=== PATIENT | male | born 1945 | race Caucasian/White ===

== ENCOUNTER 2017-03-13 14:04 | Inpatient (IN) ==
[~2017-03-13 14:04] MED LIST: *HR* Etomidate 20 MG/10 ML AMPUL IVP ONE; *HR* LORazepam 2 MG/ML VIAL IVP ONE; *HR* Midazolam HCl 2 MG/2 ML VIAL IV ONE; *HR* Midazolam HCl 5 MG/5 ML VIAL IVP ONE
--- NOTE | 2017-03-13 17:01 | Pulmonology History & Physical ---
<Sharan Navarro W - Last Filed: 03/13/17 18:52> Date of Encounter: 03/13/17 History of Present Illness HPI: Mr. Child is a 71 year old male Medications and Allergies Fluticasone Propionate Nasal [Flonase] 150 mcg NS DAILY 04/06/15 [History] Furosemide [Lasix] 20 mg PO QAM 04/06/15 [History] Ropinirole HCl [Requip] 5 mg PO BID 04/06/15 [History] Sertraline [Zoloft] 150 mg PO DAILY 10/07/15 [History] Gabapentin [Neurontin] 300 mg PO TID 04/05/16 [History] Lisinopril/Hydrochlorothiazide [Zestoretic 10-12.5 mg Tablet] 1 each PO DAILY [History] Montelukast [Singulair] 10 mg PO DAILY 03/13/17 [History] Mv-Mn/FA/Vit K/Lycop/Lut/Coq10 [Daily Multivitamin Capsule] 1 each PO DAILY [History] Naproxen Sodium [Naproxen Sodium Cr] 500 mg PO BID 03/13/17 [History] Potassium Chloride [K-Tab ER] 20 meq PO DAILY 03/13/17 [History] Trazodone HCl 100 mg PO HS PRN 03/13/17 [History] 3 Allergy/AdvReac Type Severity Reaction Status Date / Time hydrocodone [From Vicodin] AdvReac Gastrointestinal Verified 03/13/17 12:08 Upset Iodinated Contrast- Oral and AdvReac Vomiting Verified 03/13/17 12:08 IV Dye [Iodinated Contrast Media - IV Dye] All Systems: A 10-system review of systems was performed and is negative for pertinent findings except as documented above in the HPI. Physical Examination Vital Signs: Vital Signs, Last 4 Hours Pulse Resp Pulse Ox 03/13/17 16:54 96 98 03/13/17 16:51 30 99 Results - Laboratory Findings ABG ABG pH 7.16 pH Units (7.32-7.45) L* 03/13/17 16:43 ABG pCO2 54 mmHg (35-45) H 03/13/17 16:43 ABG pO2 101 mmHg (85-104) 03/13/17 16:43 ABG O2 Saturation 96 % (95-98) 03/13/17 16:43 Abnormal lab findings: Abnormal lab results ABG pH 7.16 pH Units (7.32-7.45) L* 03/13/17 16:43 ABG pCO2 54 mmHg (35-45) H 03/13/17 16:43 ABG HCO3 19.2 mEQ/L (21-27) L 03/13/17 16:43 ABG Base Excess -9.8 mEq/L (-2.0 to 3.0) L 03/13/17 16:43 Urine Clarity Cloudy (Clear) A 03/13/17 16:00 Urine Bilirubin Small (Negative) H 03/13/17 16:00 Ur Leukocyte Esterase Small (Negative) H 03/13/17 16:00 Ur Squamous Epith Cells Many per lpf (None-Few) H 03/13/17 16:00 Ur Culture Indicated? YES (NO) A 03/13/17 16:00 - Attending Attestation I examined this patient and my medical decision-making was reviewed with the Resident Physician. I agree with the documented findings, disposition and treatment plan as described except to the extent set forth below. We independently had [id number] contact with the patient I spent 50min of Critical Care time with this patient. It involved decision making of high complexity to assess, manipulate, and support vital organ system failure and/or to prevent further life threatening deterioration of the patient' s condition. The time involved in the performance of separately reportable procedures was not counted toward critical care time. Patient seen and examined at bedside Labs, radiology, chart personally reviewed. Management was reviewed during multidisciplinary critical care rounds. 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 Currently he is tolerating noninvasive ventilation repeat ABG pending high risk of decompensation requiring endotracheal intubation and mechanical ventilation. Cards: Patient has been borderline hypotensive with evidence of elevated lactate and acute kidney injury overall physiology appears severe sepsis and bordering on shock with multiple organ system dysfunction - patient was actually requiring vasopressor in-transit from outside hospital although that has been weaned off since he is here we will continue to gentle fluid boluses as needed and will have a low threshold to restart vasopressor given evidence of cardiogenic edema as evidenced by BNP his ECG is without evidence of STEMI troponin is negative at this time may need formal echocardiogram based upon clinical course FEN-GI: Nothing by mouth for now Renal: Acute kidney injury which is likely multifactorial acute including prerenal azotemia from hypovolemia and sepsis along with use of DANNI inhibitor and nonsteroidal anti-inflammatory medication. We have given him fluid resuscitation. Currently he is oliguric we will continue to monitor urine output Dior catheter has been placed for this purpose trend renal function twice daily replace electrolytes potassium as of right now not significantly elevated we will monitor this closely may need renal consult based upon clinical course I have have also ordered a renal ultrasound. ID: Severe sepsis likely secondary to committee acquired pneumonia he is being covered broadly for this purposes cultures have been obtained strep pneumo and legionella urine antigens have been sent repeat lactate every 6 hours. He is also receiving adequate volume resuscitation Heme/Onc: DVT prophylaxis given H&H stable platelets stable continue to monitor her evidence of coagulopathy Endo: Glucose Monitored Integ/MSK: Skin Care per routine ICU Nursing Protocol to prevent ulcers. Lines: A right central venous catheter was inserted in the femoral vein under ultrasound guidance Dispo: Remains critically ill CODE: Full Code. and son were updated at bedside <Red Valles - Last Filed: 03/13/17 19:05> Date of Encounter: 03/13/17 Time of Encounter: 17:01 Assessment and Plan (1) Acute respiratory failure with hypoxia Current visit: Yes Status: Acute Patient is currently on BiPAP and his oxygen saturation is at 100% with an FiO2 of 100. He is currently tachypnic, and his last pH was 7.16. This has worsened from the previous one done in the emergency department at [facility] where was 7.25. His PCO2 is now 54, and it was 45 at [facility]. This has worsened as well. I will repeat an arterial blood gas in 30 minutes. If this is not improved, we will consider intubation. (2) Pneumonia Current visit: No Status: Acute (3) Sepsis associated hypotension Current visit: Yes Status: Acute Patient's mean arterial pressure is currently at 75. We have obtained written consent to perform a central line if necessary. At this point, we will continue monitoring. We have placed a central line in the right femoral vein. Levophed is on standby in case his hematocrit drops below 65. (4) Acute kidney injury Current visit: Yes Status: Acute Continue monitoring her renal function. We will give him 500 mL boluses of normal saline and monitor for fluid overload. (5) DVT prophylaxis Current visit: Yes Status: Acute 5000 units of heparin subcutaneous every 8 hours. I will monitor his PT, INR, APTT History of Present Illness Chief complaint: Acute hypoxic respiratory failure, sepsis secondary to pneumonia HPI: Mr. Child is a 71 year old male who presented to the [facility] emergency department today with a 3 day history of a productive cough, and shortness of breath. There, he was tachycardic, hypotensive with a blood pressure of 83/46, and his O2 sat was 68% on arrival. His initial pH of his arterial blood gas was 7.26, and initial PO2 was 41. His chest x-ray revealed patchy bilateral bibasilar airspace abnormalities that may reflect edema or an atypical infection. His initial lab values revealed a creatinine of 2.21 and a BUN of 61. He received 1 L bolus of normal saline while he was there in the emergency department, 40 mg of furosemide, and DuoNeb. He also received azithromycin and Rocephin while he was there. We were consulted in the intensive care unit due to his hypoxia as well as sepsis secondary to pneumonia. Patient states that he is currently really short of breath, and has and has had drainage in the back of his throat for the past week. His states that he had of severe lung infection a few years ago and had pneumonia last year. She states that he was never a smoker. Past Med Surg Social Fam HX - Past Medical History Medical history: no medical history Psychiatric history: no psych history - Past Surgical History Surgical History: appendectomy, knee replacement - Social History Smoking Status: Never smoker Smokeless Tobacco Status: No Alcohol use: none Drug use: none - Family History Father Adopted: No (Past medical history reviewed with the patient and noncontributory. ) Mother Living Status: Hx Family Cardiac Disorders: Yes (CVA) All Systems: A 10-system review of systems was performed and is negative for pertinent findings except as documented above in the HPI. - Constitutional Constitutional: chills, no fever(s) - Cardiovascular Cardiovascular: dyspnea, no chest pain, no diaphoresis - Respiratory Respiratory: cough, dyspnea, chest congestion, excessive phlegm production, no hemoptysis - Gastrointestinal Gastrointestinal: no abdominal pain, no diarrhea Physical Examination Vital Signs: Vital Signs, Last 4 Hours Resp Pulse Ox 03/13/17 16:51 30 99 General appearance: other (This is a morbidly obese 71-year-old male who appears to be in severe respiratory distress.) Eyes: nonicteric ENT: oropharynx dry Effort: very labored Inspection: normal Auscultation: bilateral: rhonchi Cardiovascular: other (Telemetry: Normal sinus tachycardia with a rate of 103) Gastrointestinal: normoactive bowel sounds, soft, non-tender, other (Obese abdomen appears mildly distended) Extremities: no cyanosis, pulses normal, other (Bilateral venous stasis changes ) normal mental status, non-focal exam, pupils equal and round anxious Results - Diagnostic Findings Chest x-ray: report reviewed, image reviewed
[2017-03-13 17:12] LABS: ABG Base Excess -9.8 mEq/L (-2.0 to 3.0); ABG HCO3 19.2 mEQ/L (21-27); ABG Oxygen Saturation 96 % (95-98); ABG PCO2 54 mmHg (35-45); ABG PO2 101 mmHg (85-104); ABG TCO2 20.9 mEq/L (20-26)
[2017-03-13 17:13] LABS: Blood Gas FiO2 100 %
[2017-03-13 17:14] LABS: ABG PH 7.16 pH Units (7.32-7.45)
[2017-03-13 17:19] LABS: Bilirubin,Urine Small (Negative); Blood,Urine Negative (Negative); Clarity,Urine Cloudy (Clear); Color,Urine Dark Yellow (Yellow); Glucose,Urine (UA) Normal (Normal); Ketones,Urine Negative (Negative); Specific Gravity,Urine 1.025 (1.010-1.025)
[2017-03-13 17:20] LABS: Leukocyte Esterase,Urine Small (Negative); Nitrite,Urine Negative (Negative); Protein,Urine Trace mg/dL (Neg-Trace); Urobilinogen,Urine Normal (Normal)
[2017-03-13 17:25] LABS: Calcium Oxalate Crystals,Urine Present
[2017-03-13 17:26] LABS: RBC,Urine 0-3 per hpf (0-3); Squamous Epithelial Cell,Urine Many per lpf (None-Few); WBC,Urine 0-3 per hpf (0-3)
[2017-03-13 17:27] LABS: Bacteria,Urine None Seen per hpf (None-Few); Hyaline Casts,Urine Few per lpf (None-Few)
[2017-03-13] MEDS ORDERED: *HR* FentaNYL (PF) 100 MCG/2 ML VIAL ONE (17:44)
[2017-03-13 18:51] LABS: ABG Base Excess -8.6 mEq/L (-2.0 to 3.0); ABG HCO3 19.5 mEQ/L (21-27); ABG Oxygen Saturation 99 % (95-98); ABG PCO2 50 mmHg (35-45); ABG PO2 149 mmHg (85-104)
--- NOTE | 2017-03-13 19:00 | Procedure Note ---
<Red Valles - Last Filed: 03/13/17 19:02> Date of procedure: 03/13/17 Procedures - Central Line Placement Right Femoral Central Line Inserted*: Yes Central Line Insertion: emergent Consent Obtained: written consent Procedural Pause: verify patient name and date of , timeout performed per policy, assemble equipment and verify supplies, perform hand hygiene Patient Placed on Monitor/Pulse Ox: Yes During the Procedure: clinician is wearing sterile gloves, cap, mask,& gown during insertion, sterile field and sterile technique are maintained, patient's face is covered with drape or mask and wearing a cap, everyone in room is wearing a mask Central Line Prep: Chlorhexidine scrub, sterile drapes applied Prep the Procedure Site: apply chloraprep to the skin using a back and forth scrubbing motion, apply chloraprep for 30 seconds (upper body), 1-2 min ( femoral sites), allow prep to dry, drape the patient with a full body drape Local Anesthetic: lidocaine 1% Amount of anesthesia used (mL): 5 Ultrasound Used for Placement: Yes Central Line Lumen Inserted: triple Post Procedure: sutured in place, good blood return, all ports aspirated, flushed, capped, sterile dressing applied, guide wire removed and visualized Patient Tolerated Procedure: well, no complications Complications: none Name of Clinician Inserting Central Line: Red Valles D.O. Clinician Assisting/Completing Checklist: Sharan Navarro M.D. Date: 03/13/17 Time: 18:30 <Sharan Navarro - Last Filed: 03/13/17 20:25> - Attending Attestation I was present for the entire procedure.
[2017-03-13] MEDS ORDERED: methylPREDNISolone 125 MG/2 ML VIAL IVP ONE (19:02)
[2017-03-13 19:06] LABS: Albumin 2.4 g/dL (3.5-5.0); Albumin/Globulin Ratio 0.5 (1.1-2.2); Bilirubin,Total 0.3 mg/dL (0.2-1.2); Calcium 8.9 mg/dL (8.6-10.8); Globulin 4.7 g/dL (2.4-3.5); Potassium 4.7 mEq/L (3.5-4.5); Total Protein 7.1 g/dL (6.0-8.3)
[2017-03-13] MEDS ORDERED: Perflutren Lipid Microsphere 1.3 ML in 0.9 % Sodium Chloride 8.7 ML IVP ONE (20:57)
[2017-03-13 21:39] LABS: ABG Base Excess -7.9 mEq/L (-2.0 to 3.0); ABG HCO3 21.2 mEQ/L (21-27); ABG Oxygen Saturation 89 % (95-98); ABG PCO2 58 mmHg (35-45); ABG PO2 71 mmHg (85-104)
[2017-03-13 21:41] LABS: Blood Gas FiO2 90 %
[2017-03-13 21:43] LABS: Blood Gas BiPAP(E) 6 cm H2O; Blood Gas BiPAP(I) 20 cm H2O
[2017-03-13 21:45] LABS: ABG PH 7.17 pH Units (7.32-7.45)
[2017-03-13] MEDS: *HR* Heparin 5,000 UNIT/ML VIAL SQ SCH (22:19)
[2017-03-13] MEDS: Norepinephrine 4 MG in D5% in Water 250 ML IVC SCH (22:20)
--- NOTE | 2017-03-13 22:43 | Event Note ---
Date of Encounter: 03/13/17 Time of Encounter: 22:[address] Marsh to assess patient and last ABG. I reviewed his ABG, viewed Xray and assessed patient. Pt is tachypneic and had increased work of breathing , even on BiPap. I called and discussed with Dr. Navarro. He recommends proceeding with intubation now as he has exhausted conservative respiratory supportive measures. I agree with his recommendation and will proceed. I discussed with and informed patient, and he agrees.
[2017-03-13] MEDS ORDERED: 0.9 % Sodium Chloride 500 ML IVC ONE (22:55)
--- NOTE | 2017-03-13 23:24 | Procedure Note ---
<Moy Marsh - Last Filed: 03/13/17 23:21> Date of procedure: 03/13/17 Pre-op diagnosis: pneumonia, resp acidosis Post-op diagnosis: same Procedure: Date: 03/13/17 Time: 22:48 Indication: resp. acidosis, pneumonia, tachypnea Resident: Moy Marsh DO Attending: Dr. Villafuerte A time-out was completed verifying correct patient, procedure, site, positioning. The patient was placed in a flat position. Sedation was obtained using Versed 5mg, and additionally with Etomidate 20mg. The patient was easily ventilated using an ambu bag. The MAC 4 BLADE was used and inserted into the oropharynx at which time there was a Grade 1 view of the vocal cords. A 7.5- frisian endotracheal tube was inserted and visualized going through the vocal cords. The stylette was removed. Colorimetric change was visualized on the CO2 meter. Breath sounds were heard in both lung gaston equally. The endotracheal tube was placed at 23 cm, measured at the lip. Dr. Villafuerte was present for the entire procedure. A chest x-ray was ordered to assess for pneumothorax and verify endotrachealtube placement. The patient tolerated the procedure well and there were no complications. Condition: stable Disposition: ICU <Leo Villafuerte - Last Filed: 03/14/17 02:01> Procedure: I was present during and supervised procedure with Dr. Marsh. Intubation was successful on first attempt by Dr. Marsh and without any immediate complication.
[2017-03-13] MEDS: FentaNYL (PF) 1,000 MCG in 0.9 % Sodium Chloride 80 ML IVC SCH (23:54)
[2017-03-14 01:18] LABS: ABG Base Excess -8.5 mEq/L (-2.0 to 3.0); ABG HCO3 20.2 mEQ/L (21-27); ABG Oxygen Saturation 91 % (95-98); ABG PCO2 54 mmHg (35-45); ABG PO2 77 mmHg (85-104); ABG TCO2 21.9 mEq/L (20-26)
[2017-03-14 01:21] LABS: ABG PH 7.18 pH Units (7.32-7.45)
[2017-03-14] MEDS ORDERED: Vancomycin 2,000 MG in D5% in Water 250 ML IVPB SCH (02:00)
[2017-03-14] MEDS ORDERED: Vancomycin 2,000 MG in D5% in Water 500 ML IVPB SCH (03:00)
[2017-03-14] MEDS ORDERED: Potassium Phosphate 44 MEQ in 0.9 % Sodium Chloride 250 ML IVPB PRN (03:53)
[2017-03-14] MEDS ORDERED: Calcium Gluconate 1,000 MG in D5% in Water 100 ML IVPB PRN (03:53)
[2017-03-14 05:01] LABS: ABG Base Excess -8.1 mEq/L (-2.0 to 3.0); ABG HCO3 19.6 mEQ/L (21-27); ABG Oxygen Saturation 96 % (95-98); ABG PCO2 48 mmHg (35-45); ABG PH 7.22 pH Units (7.32-7.45); ABG PO2 95 mmHg (85-104); ABG TCO2 21.1 mEq/L (20-26)
[2017-03-14 05:02] LABS: Basophils % 0.2 %; Hemoglobin 12.5 g/dL (12.9-16.9)
[2017-03-14 05:03] LABS: Basophils # 0.1 K/mcL (0.0-0.2); Hematocrit 39.6 % (37.5-50.1); Immature Granulocytes % 0.9 % (0-4); Lymphocytes # 0.3 K/mcL (0.6-4.6); Lymphocytes % 1.3 %; Mean Corpuscular HGB Conc 31.6 g/dL (31.6-35.5); Mean Corpuscular Hemoglobin 30.3 pg (28.0-33.3); Mean Corpuscular Volume 96.1 fL (83.0-100.0); Mean Platelet Volume 12.6 fL (9.4-12.4); Neutrophils # 23.9 K/mcL (1.6-8.9); Platelet Count 241 K/mcL (140-400); Red Blood Count 4.12 M/mcL (4.19-5.50); Red Cell Distribution Width 15.4 % (11.5-14.5); Segmented Neutrophils % 96.6 %
[2017-03-14 05:13] LABS: Monocytes # 0.3 K/mcL (0.0-1.3)
[2017-03-14 05:14] LABS: Albumin 2.2 g/dL (3.5-5.0); Albumin/Globulin Ratio 0.5 (1.1-2.2); Bilirubin,Total 0.4 mg/dL (0.2-1.2); Calcium 8.7 mg/dL (8.6-10.8); Globulin 4.7 g/dL (2.4-3.5); Total Protein 6.9 g/dL (6.0-8.3)
[2017-03-14 05:20] LABS: Potassium 5.4 mEq/L (3.5-4.5)
[2017-03-14 05:26] LABS: Activated Partial Thrombo Time 29.1 Seconds (26.0-36.0); INR 1.1; Prothrombin Time 12.4 Seconds (9.4-12.1)
[2017-03-14 05:42] LABS: Large Platelets Present (Not Present); Platelet Estimate Normal (Normal); Smudge Cells Present (Not Present); Toxic Granulation Present (Not Present)
[2017-03-14] MEDS: *HR* Heparin 5,000 UNIT/ML VIAL SQ SCH ×3 (06:35→20:12)
[2017-03-14] MEDS ORDERED: Lacri-Lube 3.5 GM TUBE BOTH EYES PRN (07:52)
[2017-03-14] MEDS: Ipratropium/Albuterol Neb 3 ML IH SCH ×4 (07:54→20:28)
[2017-03-14] MEDS: Azithromycin 500 MG in D5% in Water 250 ML IVPB SCH (08:02)
[2017-03-14] MEDS: Pantoprazole 40 MG VIAL IVP SCH (08:03)
[2017-03-14] MEDS: Norepinephrine 4 MG in D5% in Water 250 ML IVC SCH ×5 (08:03→20:15)
--- NOTE | 2017-03-14 08:09 | Pulmonology Progress Note ---
<DominickdaysiSharan elkins W - Last Filed: 03/14/17 10:29> Date of Encounter: 03/14/17 Objective PUL Vital signs: Last Vital Signs Temp 99.9 F H 03/14/17 08:29 Pulse 95 03/14/17 08:29 Resp 30 03/14/17 08:29 BP 108/65 03/14/17 08:29 Pulse Ox 92 03/14/17 08:29 Ventilator Settings Ventilator Settings: Ventilator Settings, Last 8 Hours Ventilator Mode VC+ Ventilator Mode VC+ Ventilator Mode VC+ Ventilator Mode VC+ Ventilator Mode VC+ Ventilator Mode VC+ Ventilator Mode VC+ Ventilator Tidal Volume 440 Setting Ventilator Tidal Volume 440 Setting Ventilator Tidal Volume 440 Setting Ventilator Tidal Volume 600 Setting Ventilator Tidal Volume 600 Setting Ventilator Tidal Volume 600 Setting Ventilator Tidal Volume 600 Setting Ventilator Respiratory Rate 22 Setting Ventilator Respiratory Rate 22 Setting Ventilator Respiratory Rate 26 Setting Ventilator Respiratory Rate 22 Setting Ventilator Respiratory Rate 22 Setting Ventilator Respiratory Rate 22 Setting Ventilator Respiratory Rate 22 Setting Actual Respiratory Rate 31 Actual Respiratory Rate 31 Actual Respiratory Rate 31 Actual Respiratory Rate 28 Actual Respiratory Rate 22 Actual Respiratory Rate 22 Positive End Expiratory 8 Pressure Positive End Expiratory 8 Pressure Positive End Expiratory 12 Pressure Positive End Expiratory 8 Pressure Positive End Expiratory 8 Pressure Positive End Expiratory 8 Pressure Positive End Expiratory 8 Pressure Peak Inspiratory Airway 22 Pressure Peak Inspiratory Airway 22 Pressure Peak Inspiratory Airway 22 Pressure Peak Inspiratory Airway 41 Pressure Peak Inspiratory Airway 41 Pressure Peak Inspiratory Airway 40 Pressure Results - Laboratory Findings CBC and BMP: 03/14/17 04:45 03/14/17 04:45 ABG ABG pH 7.25 pH Units (7.32-7.45) L 03/14/17 08:20 ABG pCO2 46 mmHg (35-45) H 03/14/17 08:20 ABG pO2 74 mmHg (85-104) L 03/14/17 08:20 ABG O2 Saturation 92 % (95-98) L 03/14/17 08:20 PT/INR, D-dimer PT 12.4 Seconds (9.4-12.1) H 03/14/17 04:45 Abnormal lab findings: Abnormal lab results WBC 24.7 K/mcL (4.3-11.1) H 03/14/17 04:45 RBC 4.12 M/mcL (4.19-5.50) L 03/14/17 04:45 Hgb 12.5 g/dL (12.9-16.9) L 03/14/17 04:45 RDW 15.4 % (11.5-14.5) H 03/14/17 04:45 MPV 12.6 fL (9.4-12.4) H 03/14/17 04:45 Neutrophils # 23.9 K/mcL (1.6-8.9) H 03/14/17 04:45 Lymphocytes # 0.3 K/mcL (0.6-4.6) L 03/14/17 04:45 Smudge Cells Present (Not Present) A 03/14/17 04:45 Toxic Granulation Present (Not Present) A 03/14/17 04:45 Large Platelets Present (Not Present) A 03/14/17 04:45 PT 12.4 Seconds (9.4-12.1) H 03/14/17 04:45 ABG pH 7.25 pH Units (7.32-7.45) L 03/14/17 08:20 ABG pCO2 46 mmHg (35-45) H 03/14/17 08:20 ABG pO2 74 mmHg (85-104) L 03/14/17 08:20 ABG HCO3 20.2 mEQ/L (21-27) L 03/14/17 08:20 ABG O2 Saturation 92 % (95-98) L 03/14/17 08:20 ABG Base Excess -7.0 mEq/L (-2.0 to 3.0) L 03/14/17 08:20 Sodium 134 mEq/L (136-145) L 03/14/17 04:45 Potassium 5.4 mEq/L (3.5-4.5) H 03/14/17 04:45 BUN 70 mg/dL (8-26) H 03/14/17 04:45 Creatinine 2.31 mg/dL (0.72-1.25) H 03/14/17 04:45 Est GFR ( Amer) 34 (> 60) L 03/14/17 04:45 Est GFR (Non-Af Amer) 28 (> 60) L 03/14/17 04:45 BUN/Creatinine Ratio 30 (6-26) H 03/14/17 04:45 Glucose 203 mg/dL (70-99) H 03/14/17 04:45 POC Glucose 180 (58-89) H 03/13/17 16:40 Calculated Osmolality 304 (280-300) H 03/14/17 04:45 Albumin 2.2 g/dL (3.5-5.0) L 03/14/17 04:45 Globulin 4.7 g/dL (2.4-3.5) H 03/14/17 04:45 Albumin/Globulin Ratio 0.5 (1.1-2.2) L 03/14/17 04:45 Urine Clarity Cloudy (Clear) A 03/13/17 16:00 Urine Bilirubin Small (Negative) H 03/13/17 16:00 Ur Leukocyte Esterase Small (Negative) H 03/13/17 16:00 Ur Squamous Epith Cells Many per lpf (None-Few) H 03/13/17 16:00 Ur Culture Indicated? YES (NO) A 03/13/17 16:00 - Microbiology Findings Microbiology Findings: Microbiology, Last 48 Hours 03/13/17 16:00 Legionella Antigen - Final Urine,Catheterized Streptococcus pneumoniae Antigen (M - Final - Clinical Findings Intake & Output: Intake & Output 03/13/17 03/14/17 03/14/17 23:59 07:59 15:59 Intake Total 879 / 879 175 / 175 Output Total 250 / 250 300 / 300 Balance -250 / -250 579 / 579 175 / 175 Weight 156 kg 161.071 kg Consult Discharge Plan - Plan Referrals: Cuca Carlos MD [Primary Care Provider] - - Attending Attestation I examined this patient and my medical decision-making was reviewed with the Resident Physician. I agree with the documented findings, disposition and treatment plan as described except to the extent set forth below. We independently had [id number] contact with the patient I spent 40min of Critical Care time with this patient. It involved decision making of high complexity to assess, manipulate, and support vital organ system failure and/or to prevent further life threatening deterioration of the patient' s condition. The time involved in the performance of separately reportable procedures was not counted toward critical care time. Patient seen and examined at bedside Labs, radiology, chart personally reviewed. Management was reviewed during multidisciplinary critical care rounds. Neuropsych:xamined today and able to follow commands on sedation without deficit. plan to deeply sedate Cristofer 4-5 for planned NMB. Pulm: Acute hypoxic hypercarbic respiratory failure with refractory Hypoxemia s/ t to ARDS physiology. Failed NIV. Now on Low TV (6cc/kg) ventilation strategy with ARDSnet low Fio2/PEEP ladder. Ok for permissive hypercapnia. PEEK/Plat acceptable on current settings. Steroids given for ARDS/Severe CAP, Goal PaO2 > 55. Start NMB. Will consider Proning Cards: Hypotenions s/t Sepsis and Sedation. Lactate has resolved. Likely underlying HFpEF ECHO when proned FEN-GI: Start enteral nutrition. PPI prophylaxis given Renal: Acute kidney injury which is likely multifactorial acute including prerenal azotemia from hypovolemia and sepsis along with use of DANNI inhibitor and nonsteroidal anti-inflammatory medication. We have given him fluid resuscitation. without significant improvement. Currently he is oliguric. Nephrology consulted for possible need for HD> cont to monitor hyperkalemia and will given K+ cocktail. ID: Severe sepsis likely secondary to committee acquired pneumonia he is being covered broadly for this purposes and Vancomycin Heme/Onc: DVT prophylaxis given H&H stable platelets stable continue to monitor her evidence of coagulopathy Endo: Glucose Monitored start corrective insulin Integ/MSK: Skin Care per routine ICU Nursing Protocol to prevent ulcers. Lines: Right Groin CVC catheter. Dispo: Remains critically ill CODE: Full Code. <Red Valles - Last Filed: 03/14/17 13:16> Date of Encounter: 03/14/17 Time of Encounter: 08:09 Assessment and Plan (1) ARDS (adult respiratory distress syndrome) Current Visit: Yes Status: Acute This patient meets the Gully criteria for acute respiratory distress syndrome. He is currently intubated. We have lowered his tidal volume to 440mL. We have deeply sedated him through the use of Popofol and Fentanyl. We have initiated a neuromuscular blockade through the use of atracurium. (2) Acute respiratory failure with hypoxia Current Visit: Yes Status: Acute See above (3) Pneumonia Current Visit: No Status: Acute We are currently treating him with vancomycin, azithromycin, and Rocephin. We are obtaining a random vancomycin trough today. (4) Sepsis associated hypotension Current Visit: Yes Status: Acute Patient has a central line in his right femoral vein. We are using Levophed to treat his hypotension while maintaining a mean arterial pressure greater than 65. (5) Acute kidney injury Current Visit: Yes Status: Acute We have consulted nephrology. We are ordering a basic metabolic panel today to see if his creatinine worsens as well as his hyperkalemia. He currently has a BUN of 70, creatinine of 2.31, and a potassium of 5.4. Due to his ARDS, Dr. Cuenca is leaning towards dialysis. (6) DVT prophylaxis Current Visit: Yes Status: Acute 5000 units of heparin subcutaneous every 8 hours. I will monitor his PT, INR, APTT Objective PUL Vital signs: Last Vital Signs Temp 99.9 F H 03/14/17 07:33 Pulse 110 03/14/17 06:00 Resp 31 03/14/17 07:44 BP 95/67 03/14/17 06:07 Pulse Ox 92 03/14/17 07:44 Ventilator Settings Ventilator Settings: Ventilator Settings, Last 8 Hours Ventilator Mode VC+ Ventilator Mode VC+ Ventilator Mode VC+ Ventilator Mode VC+ Ventilator Mode VC+ Ventilator Mode VC+ Ventilator Mode VC+ Ventilator Tidal Volume 600 Setting Ventilator Tidal Volume 600 Setting Ventilator Tidal Volume 600 Setting Ventilator Tidal Volume 600 Setting Ventilator Tidal Volume 600 Setting Ventilator Tidal Volume 550 Setting Ventilator Tidal Volume 550 Setting Ventilator Respiratory Rate 22 Setting Ventilator Respiratory Rate 22 Setting Ventilator Respiratory Rate 22 Setting Ventilator Respiratory Rate 22 Setting Ventilator Respiratory Rate 22 Setting Ventilator Respiratory Rate 20 Setting Ventilator Respiratory Rate 20 Setting Actual Respiratory Rate 31 Actual Respiratory Rate 28 Actual Respiratory Rate 22 Actual Respiratory Rate 22 Actual Respiratory Rate 22 Positive End Expiratory 8 Pressure Positive End Expiratory 8 Pressure Positive End Expiratory 8 Pressure Positive End Expiratory 8 Pressure Positive End Expiratory 8 Pressure Positive End Expiratory 8 Pressure Positive End Expiratory 8 Pressure Peak Inspiratory Airway 22 Pressure Peak Inspiratory Airway 41 Pressure Peak Inspiratory Airway 41 Pressure Peak Inspiratory Airway 40 Pressure Peak Inspiratory Airway 39 Pressure Results - Laboratory Findings CBC and BMP: 03/14/17 04:45 03/14/17 04:45 ABG ABG pH 7.22 pH Units (7.32-7.45) L 03/14/17 04:43 ABG pCO2 48 mmHg (35-45) H 03/14/17 04:43 ABG pO2 95 mmHg (85-104) 03/14/17 04:43 ABG O2 Saturation 96 % (95-98) 03/14/17 04:43 PT/INR, D-dimer PT 12.4 Seconds (9.4-12.1) H 03/14/17 04:45 Abnormal lab findings: Abnormal lab results WBC 24.7 K/mcL (4.3-11.1) H 03/14/17 04:45 RBC 4.12 M/mcL (4.19-5.50) L 03/14/17 04:45 Hgb 12.5 g/dL (12.9-16.9) L 03/14/17 04:45 RDW 15.4 % (11.5-14.5) H 03/14/17 04:45 MPV 12.6 fL (9.4-12.4) H 03/14/17 04:45 Neutrophils # 23.9 K/mcL (1.6-8.9) H 03/14/17 04:45 Lymphocytes # 0.3 K/mcL (0.6-4.6) L 03/14/17 04:45 Smudge Cells Present (Not Present) A 03/14/17 04:45 Toxic Granulation Present (Not Present) A 03/14/17 04:45 Large Platelets Present (Not Present) A 03/14/17 04:45 PT 12.4 Seconds (9.4-12.1) H 03/14/17 04:45 ABG pH 7.22 pH Units (7.32-7.45) L 03/14/17 04:43 ABG pCO2 48 mmHg (35-45) H 03/14/17 04:43 ABG HCO3 19.6 mEQ/L (21-27) L 03/14/17 04:43 ABG Base Excess -8.1 mEq/L (-2.0 to 3.0) L 03/14/17 04:43 Sodium 134 mEq/L (136-145) L 03/14/17 04:45 Potassium 5.4 mEq/L (3.5-4.5) H 03/14/17 04:45 BUN 70 mg/dL (8-26) H 03/14/17 04:45 Creatinine 2.31 mg/dL (0.72-1.25) H 03/14/17 04:45 Est GFR ( Amer) 34 (> 60) L 03/14/17 04:45 Est GFR (Non-Af Amer) 28 (> 60) L 03/14/17 04:45 BUN/Creatinine Ratio 30 (6-26) H 03/14/17 04:45 Glucose 203 mg/dL (70-99) H 03/14/17 04:45 POC Glucose 180 (58-89) H 03/13/17 16:40 Calculated Osmolality 304 (280-300) H 03/14/17 04:45 Albumin 2.2 g/dL (3.5-5.0) L 03/14/17 04:45 Globulin 4.7 g/dL (2.4-3.5) H 03/14/17 04:45 Albumin/Globulin Ratio 0.5 (1.1-2.2) L 03/14/17 04:45 Urine Clarity Cloudy (Clear) A 03/13/17 16:00 Urine Bilirubin Small (Negative) H 03/13/17 16:00 Ur Leukocyte Esterase Small (Negative) H 03/13/17 16:00 Ur Squamous Epith Cells Many per lpf (None-Few) H 03/13/17 16:00 Ur Culture Indicated? YES (NO) A 03/13/17 16:00 - Microbiology Findings Microbiology Findings: Microbiology, Last 48 Hours 03/13/17 16:00 Legionella Antigen - Final Urine,Catheterized Streptococcus pneumoniae Antigen (M - Final - Clinical Findings Intake & Output: Intake & Output 03/13/17 03/14/17 03/14/17 23:59 07:59 15:59 Intake Total 879 / 879 Output Total 250 / 250 300 / 300 Balance -250 / -250 579 / 579 Weight 156 kg 161.071 kg
[2017-03-14 08:38] LABS: ABG HCO3 20.2 mEQ/L (21-27); ABG Oxygen Saturation 92 % (95-98); ABG PCO2 46 mmHg (35-45); ABG PH 7.25 pH Units (7.32-7.45); ABG PO2 74 mmHg (85-104); ABG TCO2 21.6 mEq/L (20-26)
[2017-03-14 08:39] LABS: Blood Gas FiO2 80 %
[2017-03-14] MEDS: Chlorhexidine Rinse 15 ML MOUTHWASH MM SCH ×2 (08:50→20:12)
[2017-03-14 10:38] LABS: Creatinine,Urine 96 mg/dL
[2017-03-14 10:39] LABS: Sodium, Urine < 20.0 mEq/L
[2017-03-14] MEDS ORDERED: Dextrose Gel 15 GM PO PRN ×2 (10:41)
[2017-03-14] MEDS ORDERED: methylPREDNISolone 125 MG/2 ML VIAL IVP ONE (10:46)
--- NOTE | 2017-03-14 10:50 | Nephrology Consult Note ---
Date of Encounter: 03/14/17 Time of Encounter: 10:00 Assessment and Plan (1) Acute kidney injury Current Visit: Yes Status: Acute Borderline oliguric, TIMI of probable multifactorial etiology: hemodynamic insults with hypotension, prerenal/volume depletion. D/t the respiratory failure with concern for ARDS, I do not recommend IVF for volume expansion. Repeat a BMP at noon and if worsening, then would recommend starting GRAIN MANAGER. Discussed with the ICU team. Thank you (2) Hyperkalemia Current Visit: Yes Status: Acute Low K+ diet (3) Acute respiratory failure with hypoxia Current Visit: Yes Status: Acute Appears to be ARDS As per primary (4) Sepsis associated hypotension Current Visit: Yes Status: Acute (5) Leukocytosis Current Visit: No Status: Acute Sepsis. Likely inducing the TIMI Qualifiers: Leukocytosis type: unspecified Qualified Code(s): D72.829 - Elevated white blood cell count, unspecified History of Present Illness - Reason for Consult Consult date: 03/14/17 Acute Kidney Injury Requesting physician: Sharan Navarro - Chief Complaint TIMI in the setting of ARDS - History of Present Illness Ortiz Child is a very pleasant 71 y/o WM who presented with acute respiratory failure and TIMI. He was noted to have hyperkalemia. 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 No NSAIDs were on the med list. There was very limited subjective/HPI information available from the pt d/t intubation. Past Med Surg Social Fam HX - Past Medical History Medical history: no medical history Psychiatric history: no psych history - Past Surgical History Surgical History: appendectomy, knee replacement - Social History Smoking Status: Never smoker Smokeless Tobacco Status: No Alcohol use: none Drug use: none - Family History Father Adopted: No (Past medical history reviewed with the patient and noncontributory. ) Mother History Unknown: Yes Living Status: Hx Family Cardiac Disorders: Yes (CVA) Medications and Allergies Fluticasone Propionate Nasal [Flonase] 100 mcg NS DAILY 04/06/15 [History] Ropinirole HCl [Requip] 5 mg PO BID 04/06/15 [History] Sertraline [Zoloft] 200 mg PO DAILY 10/07/15 [History] Gabapentin [Neurontin] 300 mg PO TID 04/05/16 [History] Aspirin 81 mg PO DAILY 03/13/17 [History] Furosemide [Lasix] 20 mg PO DAILY 03/13/17 [History] Lisinopril/Hydrochlorothiazide [Zestoretic 20-25 mg Tablet] 1 each PO DAILY [History] Loratadine [Claritin] 10 mg PO DAILY 03/13/17 [History] Montelukast [Singulair] 10 mg PO DAILY 03/13/17 [History] Mv-Mn/FA/Vit K/Lycop/Lut/Coq10 [Daily Multivitamin Capsule] 1 each PO DAILY [History] Naproxen [Naprosyn] 500 mg PO BID PRN 03/13/17 [History] Nystatin Cream [Mycostatin Cream] 1 appl TP BID PRN 03/13/17 [History] Potassium Chloride [K-Tab ER] 20 meq PO DAILY 03/13/17 [History] Trazodone HCl 100 mg PO HS PRN 03/13/17 [History] Triamcinolone Acet 0.1% CRM [Kenalog] 1 appl TP BID PRN 03/13/17 [History] 3 Allergy/AdvReac Type Severity Reaction Status Date / Time hydrocodone [From Vicodin] AdvReac Gastrointestinal Verified 03/13/17 12:08 Upset Iodinated Contrast- Oral and AdvReac Vomiting Verified 03/13/17 12:08 IV Dye [Iodinated Contrast Media - IV Dye] Review of Systems ROS unobtainable: due to endotracheal tube Exam - Vital Signs Vital signs: Initial Vital Signs Resp Pulse Ox 30 99 03/13/17 16:51 03/13/17 16:51 Vital Signs - Last 8 Hours Temp Pulse Resp BP Pulse Ox 03/14/17 10:00 99 31 106/68 92 03/14/17 09:58 32 91 03/14/17 09:00 98 31 102/63 91 03/14/17 08:29 99.9 F H 95 30 108/65 92 03/14/17 08:00 99.9 F H 95 30 108/65 92 03/14/17 07:44 31 92 03/14/17 07:33 99.9 F H 03/14/17 07:00 96 24 97/57 92 03/14/17 06:07 26 95/67 94 03/14/17 06:00 110 27 108/61 96 03/14/17 05:00 89 22 96/54 96 03/14/17 04:42 22 94/59 96 03/14/17 04:31 98.4 F 03/14/17 04:00 80 03/14/17 03:00 80 22 82/42 96 03/14/17 02:53 22 76/42 95 Intake and Output 03/13/17 03/14/17 03/14/17 23:59 07:59 15:59 Intake Total 879 / 879 175 / 175 Output Total 250 / 250 300 / 300 Balance -250 / -250 579 / 579 175 / 175 Intake: IV Fluids 879 / 879 175 / 175 Levophed 4 MG In Dextrose 179 / 179 75 / 75 5% 250 ML @ 5 MCG/MIN 19 .05 mls/hr IVC CONT ALYX Rx#:[id number] Diprivan 1,000 mg In 100 100 / 100 100 / 100 ml @ 5 MCG/KG/MIN 4.68 mls/hr IVC .[id number] ALYX Rx#:[id number] Vancocin 2,000 MG In 500 / 500 Dextrose 5% 500 ML @ 250 mls/hr IVPB Q24H ALYX Rx#: [id number] Rocephin 1,000 MG In 100 / 100 Dextrose 5% (Minibag+) 100 ML 100 ML @ 200 mls/ hr IVPB DAILY@0600 [facility] Rx #:[id number] Output: Catheter 250 / 250 300 / 300 Other: Weight 156 kg 161.071 kg Patient Weight 03/14/17 23:59 Weight 161.071 kg - General Appearance General appearance: appears started age, moderate distress, sedated on ventilator, intubated, frail EENT: mucous membranes moist Neck: supple Respiratory: rales, course breath sounds, rhonchi Cardiology: regular rate, normal S1, normal S2 Gastrointestinal: normoactive bowel sounds, no tenderness, no guarding, obese Integumentary: warm and dry Neurologic: no asterixis Musculoskeletal: no erythema, no clubbing Results - Lab Results 03/16/17 05:00 03/16/17 20:28 Most recent lab results ABG pH 7.25 pH Units (7.32-7.45) L 03/14/17 08:20 ABG pCO2 46 mmHg (35-45) H 03/14/17 08:20 ABG pO2 74 mmHg (85-104) L 03/14/17 08:20 ABG HCO3 20.2 mEQ/L (21-27) L 03/14/17 08:20 ABG O2 Saturation 92 % (95-98) L 03/14/17 08:20 Calcium 8.7 mg/dL (8.6-10.8) 03/14/17 04:45 Urine Creatinine 96 mg/dL 03/14/17 10:20 Urine Sodium < 20.0 mEq/L 03/14/17 10:20 I reviewed the above data gaston and the also reviewed the progress notes, labs , meds, vitals & I/Os and imaging. Consult Discharge Plan - Plan Referrals: Cuca Carlos MD [Primary Care Provider] -
[2017-03-14] MEDS ORDERED: Vancomycin 1 EACH in EMPTY BAG 1 EACH IVPB SCH (11:00)
[2017-03-14] MEDS: FentaNYL (PF) 1,000 MCG in 0.9 % Sodium Chloride 80 ML IVC SCH ×3 (11:04→21:13)
[2017-03-14] MEDS: Atracurium 250 MG in 0.9 % Sodium Chloride 225 ML IVC SCH ×2 (11:05→16:40)
[2017-03-14] MEDS ORDERED: 0.9 % Sodium Chloride 1,000 ML ONE (11:31)
[2017-03-14] MEDS: Insulin LISPRO 300 UNITS/3 ML VIAL SQ SCH ×3 (11:53→20:12)
--- NOTE | 2017-03-14 12:21 | Procedure Note ---
<Red Valles - Last Filed: 03/14/17 12:22> Date of procedure: 03/14/17 Condition: critical Disposition: ICU Procedures - Arterial Line Consent Obtained: written consent Time Out Performed: Yes Size (Gauge): 20 Technique Used: guide wire technique Post-Procedure: line sutured into place, dry sterile dressing placed Patient Tolerated Procedure: well, no complications Complications: none Site: right, radial <Sharan Navarro - Last Filed: 03/14/17 19:23> Attestation Statement - Attestation Attestation: I was present for the entire procedure and supervised the resident. - Attending Attestation I was present for the entire procedure and supervised the resident
[2017-03-14 14:13] LABS: Calcium 8.5 mg/dL (8.6-10.8); Potassium 5.3 mEq/L (3.5-4.5)
[2017-03-14 14:17] LABS: ABG Base Excess -9.5 mEq/L (-2.0 to 3.0); ABG HCO3 20.3 mEQ/L (21-27); ABG Oxygen Saturation 90 % (95-98); ABG PCO2 61 mmHg (35-45); ABG PO2 78 mmHg (85-104); ABG TCO2 22.2 mEq/L (20-26)
[2017-03-14 14:23] LABS: ABG PH 7.13 pH Units (7.32-7.45)
[2017-03-14 14:24] LABS: Blood Gas FiO2 60 %
[2017-03-14 16:06] LABS: ABG Base Excess -8.3 mEq/L (-2.0 to 3.0); ABG HCO3 19.6 mEQ/L (21-27); ABG Oxygen Saturation 87 % (95-98); ABG PCO2 49 mmHg (35-45); ABG PH 7.21 pH Units (7.32-7.45); ABG PO2 65 mmHg (85-104); ABG TCO2 21.1 mEq/L (20-26)
[2017-03-14 16:08] LABS: Blood Gas FiO2 60 %
--- NOTE | 2017-03-14 18:34 | Electrocardiograph Report ---
[place] [id number] Test Date: 2017-03-13 Pat Name: Ortiz Child Department: 109 Room: [facility] Gender: M Houseman: CLARIBEL : 1945 Requested By: Sharan Navarro Order Number: [id number] Reading MD: Ana M Ahn Measurements Intervals Spencer Rate: 85 P: [place]: 0 QRS: -17 QRSD: 107 T: 9 QT: 387 QTc: 429 Interpretive Statements ATRIAL FIBRILLATION LOW QRS VOLTAGE IN PRECORDIAL LEADS ABNORMAL RHYTHM ECG Electronically Signed On 03-14-2017 18:33:12 EDT by Ana M Ahn
[2017-03-14] MEDS: SODIUM CHLORIDE 0.9% IVC SCH (19:54)
[2017-03-14] MEDS: ATRACURIUM IVC SCH (19:54)
[2017-03-14] MEDS: Norepinephrine 8 MG in D5% in Water 250 ML IVC SCH (22:37)
[2017-03-14 23:54] LABS: ABG Base Excess -9.5 mEq/L (-2.0 to 3.0); ABG HCO3 19.3 mEQ/L (21-27); ABG Oxygen Saturation 90 % (95-98); ABG PCO2 53 mmHg (35-45); ABG PO2 74 mmHg (85-104); ABG TCO2 20.9 mEq/L (20-26)
[2017-03-14 23:55] LABS: ABG PH 7.17 pH Units (7.32-7.45); Blood Gas FiO2 70 %; Blood Gas Respiration Rate 30; Blood Gas VT 440 cc
[2017-03-14 23:56] LABS: Blood Gas PEEP 12 cm H2O
[2017-03-15] MEDS: Ipratropium/Albuterol Neb 3 ML IH SCH ×7 (00:11→23:33)
[2017-03-15] MEDS: Insulin LISPRO 300 UNITS/3 ML VIAL SQ SCH ×6 (00:38→20:03)
[2017-03-15] MEDS: FentaNYL (PF) 1,000 MCG in 0.9 % Sodium Chloride 80 ML IVC SCH ×5 (01:58→21:38)
[2017-03-15 03:59] LABS: Hemoglobin 12.6 g/dL (12.9-16.9); Mean Corpuscular HGB Conc 32.3 g/dL (31.6-35.5); Mean Corpuscular Hemoglobin 30.9 pg (28.0-33.3); Mean Corpuscular Volume 95.6 fL (83.0-100.0); Mean Platelet Volume 11.9 fL (9.4-12.4); Nucleated Red Blood Cells 0.5 /100 WBC (0); Platelet Count 315 K/mcL (140-400); Red Blood Count 4.08 M/mcL (4.19-5.50); Red Cell Distribution Width 15.6 % (11.5-14.5)
[2017-03-15] MEDS ORDERED: Vancomycin 1,000 MG in D5% in Water 250 ML IVPB ONE (04:00)
[2017-03-15] MEDS: Norepinephrine 8 MG in D5% in Water 250 ML IVC SCH ×3 (04:13→19:58)
[2017-03-15 04:17] LABS: Albumin 2.1 g/dL (3.5-5.0); Albumin/Globulin Ratio 0.4 (1.1-2.2); Bilirubin,Total 0.3 mg/dL (0.2-1.2); Calcium 8.8 mg/dL (8.6-10.8); Globulin 4.7 g/dL (2.4-3.5); Magnesium 2.1 mg/dL (1.6-2.6); Potassium 5.2 mEq/L (3.5-4.5); Total Protein 6.8 g/dL (6.0-8.3)
[2017-03-15] MEDS: *HR* Heparin 5,000 UNIT/ML VIAL SQ SCH ×3 (04:28→19:58)
[2017-03-15 04:55] LABS: ABG Base Excess -6.4 mEq/L (-2.0 to 3.0); ABG HCO3 21.4 mEQ/L (21-27); ABG Oxygen Saturation 95 % (95-98); ABG PCO2 51 mmHg (35-45); ABG PH 7.23 pH Units (7.32-7.45); ABG PO2 88 mmHg (85-104)
[2017-03-15 04:56] LABS: Blood Gas FiO2 70 %; Blood Gas PEEP 12 cm H2O; Blood Gas Respiration Rate 30; Blood Gas VT 440 cc
[2017-03-15 05:57] LABS: Large Platelets Present (Not Present); Lymphocytes # 4.4 K/mcL (0.6-4.6); Platelet Estimate Normal (Normal); Reactive Lymphocytes Present (Not Present); Toxic Granulation Present (Not Present)
[2017-03-15] MEDS: SODIUM CHLORIDE 0.9% IVC SCH ×2 (06:14→19:59)
[2017-03-15] MEDS: ATRACURIUM IVC SCH ×2 (06:14→19:59)
[2017-03-15] MEDS: Azithromycin 500 MG in D5% in Water 250 ML IVPB SCH (08:07)
[2017-03-15] MEDS: Chlorhexidine Rinse 15 ML MOUTHWASH MM SCH ×2 (08:07→19:58)
[2017-03-15] MEDS: Pantoprazole 40 MG VIAL IVP SCH (08:07)
--- NOTE | 2017-03-15 08:34 | Pulmonology Progress Note ---
<MelanieSharan W - Last Filed: 03/15/17 10:45> Date of Encounter: 03/15/17 Objective PUL Vital signs: Last Vital Signs Temp 98.4 F 03/15/17 08:00 Pulse 80 03/15/17 08:00 Resp 30 03/15/17 08:00 BP 136/71 03/15/17 08:00 Pulse Ox 96 03/15/17 08:00 Ventilator Settings Ventilator Settings: Ventilator Settings, Last 8 Hours Ventilator Mode A/C Ventilator Mode A/C Ventilator Mode A/C Ventilator Mode A/C Ventilator Mode A/C Ventilator Mode A/C Ventilator Mode A/C Ventilator Mode A/C Ventilator Mode A/C Ventilator Mode A/C Ventilator Tidal Volume 440 Setting Ventilator Tidal Volume 440 Setting Ventilator Tidal Volume 440 Setting Ventilator Tidal Volume 440 Setting Ventilator Tidal Volume 440 Setting Ventilator Tidal Volume 440 Setting Ventilator Tidal Volume 440 Setting Ventilator Tidal Volume 440 Setting Ventilator Tidal Volume 440 Setting Ventilator Tidal Volume 440 Setting Ventilator Respiratory Rate 30 Setting Ventilator Respiratory Rate 30 Setting Ventilator Respiratory Rate 30 Setting Ventilator Respiratory Rate 30 Setting Ventilator Respiratory Rate 30 Setting Ventilator Respiratory Rate 30 Setting Ventilator Respiratory Rate 30 Setting Ventilator Respiratory Rate 30 Setting Ventilator Respiratory Rate 30 Setting Ventilator Respiratory Rate 30 Setting Actual Respiratory Rate 30 Actual Respiratory Rate 30 Actual Respiratory Rate 30 Actual Respiratory Rate 30 Positive End Expiratory 12 Pressure Positive End Expiratory 12 Pressure Positive End Expiratory 12 Pressure Positive End Expiratory 12 Pressure Positive End Expiratory 12 Pressure Positive End Expiratory 12 Pressure Positive End Expiratory 12 Pressure Positive End Expiratory 12 Pressure Positive End Expiratory 12 Pressure Positive End Expiratory 12 Pressure Peak Inspiratory Airway 37 Pressure Peak Inspiratory Airway 37 Pressure Peak Inspiratory Airway 37 Pressure Peak Inspiratory Airway 36 Pressure Results - Laboratory Findings CBC and BMP: 03/15/17 03:41 03/15/17 03:41 ABG ABG pH 7.23 pH Units (7.32-7.45) L 03/15/17 04:47 ABG pCO2 51 mmHg (35-45) H 03/15/17 04:47 ABG pO2 88 mmHg (85-104) 03/15/17 04:47 ABG O2 Saturation 95 % (95-98) 03/15/17 04:47 PT/INR, D-dimer PT 12.4 Seconds (9.4-12.1) H 03/14/17 04:45 Abnormal lab findings: Abnormal lab results WBC 24.4 K/mcL (4.3-11.1) H 03/15/17 03:41 RBC 4.08 M/mcL (4.19-5.50) L 03/15/17 03:41 Hgb 12.6 g/dL (12.9-16.9) L 03/15/17 03:41 RDW 15.6 % (11.5-14.5) H 03/15/17 03:41 Neutrophils # 19.0 K/mcL (1.6-8.9) H 03/15/17 03:41 Nucleated RBCs/100 WBC 0.5 /100 WBC (0) H 03/15/17 03:41 Reactive Lymphocytes Present (Not Present) A 03/15/17 03:41 Smudge Cells Present (Not Present) A 03/14/17 04:45 Toxic Granulation Present (Not Present) A 03/15/17 03:41 Large Platelets Present (Not Present) A 03/15/17 03:41 PT 12.4 Seconds (9.4-12.1) H 03/14/17 04:45 ABG pH 7.23 pH Units (7.32-7.45) L 03/15/17 04:47 ABG pCO2 51 mmHg (35-45) H 03/15/17 04:47 ABG Base Excess -6.4 mEq/L (-2.0 to 3.0) L 03/15/17 04:47 Sodium 135 mEq/L (136-145) L 03/15/17 03:41 Potassium 5.2 mEq/L (3.5-4.5) H 03/15/17 03:41 BUN 75 mg/dL (8-26) H 03/15/17 03:41 Creatinine 2.28 mg/dL (0.72-1.25) H 03/15/17 03:41 Est GFR ( Amer) 34 (> 60) L 03/15/17 03:41 Est GFR (Non-Af Amer) 28 (> 60) L 03/15/17 03:41 BUN/Creatinine Ratio 33 (6-26) H 03/15/17 03:41 Glucose 165 mg/dL (70-99) H 03/15/17 03:41 POC Glucose 164 (58-89) H 03/15/17 00:29 Calculated Osmolality 306 (280-300) H 03/15/17 03:41 Ionized Calcium 1.10 mmol/L (1.15-1.35) L 03/15/17 03:38 Phosphorus 5.0 mg/dL (2.3-4.7) H 03/15/17 03:41 Albumin 2.1 g/dL (3.5-5.0) L 03/15/17 03:41 Globulin 4.7 g/dL (2.4-3.5) H 03/15/17 03:41 Albumin/Globulin Ratio 0.4 (1.1-2.2) L 03/15/17 03:41 Urine Clarity Cloudy (Clear) A 03/13/17 16:00 Urine Bilirubin Small (Negative) H 03/13/17 16:00 Ur Leukocyte Esterase Small (Negative) H 03/13/17 16:00 Ur Squamous Epith Cells Many per lpf (None-Few) H 03/13/17 16:00 Ur Culture Indicated? YES (NO) A 03/13/17 16:00 - Microbiology Findings Microbiology Findings: Microbiology, Last 48 Hours 03/13/17 16:00 Urine Culture - Final Urine,Clean Catch No growth. 03/13/17 16:00 Legionella Antigen - Final Urine,Catheterized Streptococcus pneumoniae Antigen (M - Final - Clinical Findings Intake & Output: Intake & Output 03/14/17 03/15/17 03/15/17 23:59 07:59 15:59 Intake Total 1562 / 1562 1416 / 1416 100 / 100 Output Total 150 / 150 800 / 800 Balance 1412 / 1412 616 / 616 100 / 100 Consult Discharge Plan - Plan Referrals: Cuca Carlos MD [Primary Care Provider] - - Attending Attestation I examined this patient and my medical decision-making was reviewed with the Resident Physician. I agree with the documented findings, disposition and treatment plan as described except to the extent set forth below. We independently had [id number] contact with the patient I spent 35min of Critical Care time with this patient. It involved decision making of high complexity to assess, manipulate, and support vital organ system failure and/or to prevent further life threatening deterioration of the patient' s condition. The time involved in the performance of separately reportable procedures was not counted toward critical care time. Patient seen and examined at bedside Labs, radiology, chart personally reviewed. Management was reviewed during multidisciplinary critical care rounds. Neuropsych: Sedated Paralyzed on Vent. PEERL. Pulm: Acute hypoxic hypercarbic respiratory failure with refractory Hypoxemia s/ t to ARDS physiology. Failed NIV. Now on Low TV (6cc/kg) ventilation strategy with ARDSnet low Fio2/PEEP ladder. Ok for permissive hypercapnia. PEEK/Plat acceptable on current settings. Steroids given for ARDS/Severe CAP, Goal PaO2 > 55. Cont NMB. modest improvement in vent requirements overnight. COnt Duonebs for wheezing on exam. Cards: Hypotenions s/t Sepsis and Sedation. Lcatate normalized. Cont Vasopressor for goal MAP >60. HFpEF. FEN-GI: Cont enteral nutrition. PPI prophylaxis given. Bowel regimen started. Renal: Acute kidney injury which is likely multifactorial acute including prerenal azotemia from hypovolemia and sepsis along with use of DANNI inhibitor and nonsteroidal anti-inflammatory medication. Mild K+ being monitored. No indication for HD at this time Renal Following ID: Severe sepsis likely secondary to community acquired pneumonia he is being covered broadly for this purposes Vancomycin added deescalate in 24 hours if cultures negative. Heme/Onc: DVT prophylaxis given H&H stable platelets stable continue to monitor her evidence of coagulopathy Endo: Glucose Monitored start corrective insulin Integ/MSK: Skin Care per routine ICU Nursing Protocol to prevent ulcers. Lines: Right Groin CVC catheter. Dispo: Remains critically ill CODE: Full Code. <Red Valles - Last Filed: 03/15/17 13:30> Date of Encounter: 03/15/17 Time of Encounter: 08:15 Assessment and Plan (1) ARDS (adult respiratory distress syndrome) Current Visit: Yes Status: Acute This patient meets the Jenners criteria for acute respiratory distress syndrome. He is currently intubated. We have lowered his tidal volume to 440mL. We have deeply sedated him through the use of Popofol and Fentanyl. We have initiated a neuromuscular blockade through the use of atracurium. Today, his arterial blood gases are about the same as they have been. However, his FiO2 requirements are becoming lowered. We will obtain a repeat arterial blood gas and monitor him. We will begin attempting to wean the patient off as much sedation as he currently is on as we believe his condition is improving. (2) Acute respiratory failure with hypoxia Current Visit: Yes Status: Acute See above (3) Pneumonia Current Visit: No Status: Acute He currently has a leukocytosis of 24.4. This is about the same as yesterday. However, he is being treated with vancomycin, azithromycin, and Rocephin. We will continue treatment for his pneumonia with the same antimicrobials. His chest x-ray appears to be improving. Qualifiers: Pneumonia type: due to unspecified organism Laterality: unspecified laterality Lung location: unspecified part of lung Qualified Code(s): J18.9 - Pneumonia, unspecified organism (4) Sepsis associated hypotension Current Visit: Yes Status: Acute Patient has a central line in his right femoral vein. We are using Levophed to treat his hypotension while maintaining a mean arterial pressure greater than 65. We will continue to wean this patient off Levophed as his blood pressure tolerates. (5) Acute kidney injury Current Visit: Yes Status: Acute His creatinine is currently 2.28. His BUN is currently 75. His potassium is 5.2. Due to his hyperkalemia, he was administered Kayexalate. Nephrology is holding off on doing any dialysis at this time. However, we will continue to monitor his renal function as this has worsened slightly since yesterday. His urine output though, is 800 mL in the last 24 hours. (6) DVT prophylaxis Current Visit: Yes Status: Acute 5000 units of heparin subcutaneous every 8 hours. I will monitor his PT, INR, APTT Subjective Principal diagnosis: ARDS Interval history: Patient had no events overnight. Unable to obtain history from patient due to deep sedation and being on the ventilator. Objective PUL Vital signs: Last Vital Signs Temp 98.4 F 03/15/17 07:59 Pulse 94 03/15/17 06:00 Resp 30 03/15/17 06:31 BP 109/59 03/15/17 06:31 Pulse Ox 96 03/15/17 06:31 General appearance: other (Obese 71-year-old male who is deeply sedated and on the ventilator.) Eyes: nonicteric ENT: oropharynx moist Neck: supple Effort: normal Auscultation: bilateral: wheezes Cardiovascular: regular rate and rhythm, other (Telemetry: Normal sinus rhythm with a rate of 88.) Gastrointestinal: normoactive bowel sounds, soft, non-distended Integumentary: normal Extremities: no cyanosis, no clubbing, pink and warm, edema (1+ pitting edema bilaterally of the lower extremities.) unable to assess due to mental status (On the ventilator) Ventilator Settings Ventilator Settings: Ventilator Settings, Last 8 Hours Ventilator Mode A/C Ventilator Mode A/C Ventilator Mode A/C Ventilator Mode A/C Ventilator Mode A/C Ventilator Mode A/C Ventilator Mode A/C Ventilator Mode A/C Ventilator Mode A/C Ventilator Tidal Volume 440 Setting Ventilator Tidal Volume 440 Setting Ventilator Tidal Volume 440 Setting Ventilator Tidal Volume 440 Setting Ventilator Tidal Volume 440 Setting Ventilator Tidal Volume 440 Setting Ventilator Tidal Volume 440 Setting Ventilator Tidal Volume 440 Setting Ventilator Tidal Volume 440 Setting Ventilator Respiratory Rate 30 Setting Ventilator Respiratory Rate 30 Setting Ventilator Respiratory Rate 30 Setting Ventilator Respiratory Rate 30 Setting Ventilator Respiratory Rate 30 Setting Ventilator Respiratory Rate 30 Setting Ventilator Respiratory Rate 30 Setting Ventilator Respiratory Rate 30 Setting Ventilator Respiratory Rate 30 Setting Actual Respiratory Rate 30 Actual Respiratory Rate 30 Positive End Expiratory 12 Pressure Positive End Expiratory 12 Pressure Positive End Expiratory 12 Pressure Positive End Expiratory 12 Pressure Positive End Expiratory 12 Pressure Positive End Expiratory 12 Pressure Positive End Expiratory 12 Pressure Positive End Expiratory 12 Pressure Positive End Expiratory 12 Pressure Peak Inspiratory Airway 37 Pressure Peak Inspiratory Airway 36 Pressure Results - Laboratory Findings CBC and BMP: 03/15/17 03:41 03/15/17 03:41 ABG ABG pH 7.23 pH Units (7.32-7.45) L 03/15/17 04:47 ABG pCO2 51 mmHg (35-45) H 03/15/17 04:47 ABG pO2 88 mmHg (85-104) 03/15/17 04:47 ABG O2 Saturation 95 % (95-98) 03/15/17 04:47 PT/INR, D-dimer PT 12.4 Seconds (9.4-12.1) H 03/14/17 04:45 Abnormal lab findings: Abnormal lab results WBC 24.4 K/mcL (4.3-11.1) H 03/15/17 03:41 RBC 4.08 M/mcL (4.19-5.50) L 03/15/17 03:41 Hgb 12.6 g/dL (12.9-16.9) L 03/15/17 03:41 RDW 15.6 % (11.5-14.5) H 03/15/17 03:41 Neutrophils # 19.0 K/mcL (1.6-8.9) H 03/15/17 03:41 Nucleated RBCs/100 WBC 0.5 /100 WBC (0) H 03/15/17 03:41 Reactive Lymphocytes Present (Not Present) A 03/15/17 03:41 Smudge Cells Present (Not Present) A 03/14/17 04:45 Toxic Granulation Present (Not Present) A 03/15/17 03:41 Large Platelets Present (Not Present) A 03/15/17 03:41 PT 12.4 Seconds (9.4-12.1) H 03/14/17 04:45 ABG pH 7.23 pH Units (7.32-7.45) L 03/15/17 04:47 ABG pCO2 51 mmHg (35-45) H 03/15/17 04:47 ABG Base Excess -6.4 mEq/L (-2.0 to 3.0) L 03/15/17 04:47 Sodium 135 mEq/L (136-145) L 03/15/17 03:41 Potassium 5.2 mEq/L (3.5-4.5) H 03/15/17 03:41 BUN 75 mg/dL (8-26) H 03/15/17 03:41 Creatinine 2.28 mg/dL (0.72-1.25) H 03/15/17 03:41 Est GFR ( Amer) 34 (> 60) L 03/15/17 03:41 Est GFR (Non-Af Amer) 28 (> 60) L 03/15/17 03:41 BUN/Creatinine Ratio 33 (6-26) H 03/15/17 03:41 Glucose 165 mg/dL (70-99) H 03/15/17 03:41 POC Glucose 164 (58-89) H 03/15/17 00:29 Calculated Osmolality 306 (280-300) H 03/15/17 03:41 Ionized Calcium 1.10 mmol/L (1.15-1.35) L 03/15/17 03:38 Phosphorus 5.0 mg/dL (2.3-4.7) H 03/15/17 03:41 Albumin 2.1 g/dL (3.5-5.0) L 03/15/17 03:41 Globulin 4.7 g/dL (2.4-3.5) H 03/15/17 03:41 Albumin/Globulin Ratio 0.4 (1.1-2.2) L 03/15/17 03:41 Urine Clarity Cloudy (Clear) A 03/13/17 16:00 Urine Bilirubin Small (Negative) H 03/13/17 16:00 Ur Leukocyte Esterase Small (Negative) H 03/13/17 16:00 Ur Squamous Epith Cells Many per lpf (None-Few) H 03/13/17 16:00 Ur Culture Indicated? YES (NO) A 03/13/17 16:00 - Microbiology Findings Microbiology Findings: Microbiology, Last 48 Hours 03/13/17 16:00 Urine Culture - Final Urine,Clean Catch No growth. 03/13/17 16:00 Legionella Antigen - Final Urine,Catheterized Streptococcus pneumoniae Antigen (M - Final - Diagnostic Findings Chest x-ray: report reviewed, image reviewed (Appears improved from his last chest x-ray) - Clinical Findings Intake & Output: Intake & Output 03/14/17 03/15/17 03/15/17 23:59 07:59 15:59 Intake Total 1562 / 1562 1416 / 1416 100 / 100 Output Total 150 / 150 800 / 800 Balance 1412 / 1412 616 / 616 100 / 100
--- NOTE | 2017-03-15 09:21 | Nephrology Progress Note ---
Date of Encounter: 03/15/17 Time of Encounter: 09:20 - Assessment and Plan (1) Acute kidney injury Current Visit: Yes Status: Acute Continue renal protective strategy UOP was non-oliguric and SCr is essentially stable It would be okay to add loop diuretics if needed from a pulmonary perspective. Will hold off on C DEVELOPER today. Discussed with the pt's son in detail. (2) Hyperkalemia Current Visit: Yes Status: Acute Slowly improving (3) Acute respiratory failure with hypoxia Current Visit: Yes Status: Acute As per primary (4) Sepsis associated hypotension Current Visit: Yes Status: Acute Contributing to the TIMI Subjective Principal diagnosis: TIMI in setting of ARDS Interval history: Pt was seen/examined. Remains critically ill on the vent thus limiting subjective history. Objective - Vital Signs Vital signs: Vital Signs Temp Pulse Resp BP Pulse Ox 03/15/17 08:00 98.4 F 80 30 136/71 96 03/15/17 07:59 98.4 F 03/15/17 06:31 30 109/59 96 03/15/17 06:00 94 30 130/63 94 03/15/17 05:12 97 30 132/64 96 03/15/17 04:02 30 111/55 94 03/15/17 04:00 98.2 F 88 30 104/53 94 03/15/17 03:00 88 30 116/56 93 03/15/17 02:00 97 30 119/58 94 03/15/17 01:00 91 30 108/54 93 03/15/17 00:30 98.7 F 85 30 111/55 95 03/15/17 00:12 30 109/54 94 03/14/17 23:00 80 30 89/49 93 03/14/17 22:04 30 142/63 96 03/14/17 22:00 94 30 148/64 96 03/14/17 21:00 89 30 119/61 94 03/14/17 20:28 30 102/55 93 03/14/17 20:20 97.8 F 87 30 97/53 93 03/14/17 19:00 73 30 90/50 93 03/14/17 18:00 76 30 94/51 94 03/14/17 17:00 81 30 100/53 94 03/14/17 16:17 30 93 03/14/17 16:00 97.8 F 73 30 105/56 93 08/22/17 15:21 97.8 F 03/14/17 15:00 104 26 90/47 91 03/14/17 14:00 108 26 121/71 92 03/14/17 13:00 106 26 113/72 91 03/14/17 12:00 97.8 F 101 26 111/62 91 03/14/17 11:35 97.8 F 03/14/17 11:06 26 93 03/14/17 11:00 103 26 115/75 97 03/14/17 10:00 99 31 106/68 92 03/14/17 09:58 32 91 Intake and Output 03/14/17 03/15/17 03/15/17 23:59 07:59 15:59 Intake Total 1562 / 1562 1416 / 1416 100 / 100 Output Total 150 / 150 800 / 800 Balance 1412 / 1412 616 / 616 100 / 100 Intake: IV Fluids 1562 / 1562 1288 / 1288 100 / 100 Atracurium 500 MG In 0.9 500 / 500 250 / 250 % Sodium Chloride 200 ML @ 5 MCG/KG/MIN 24.16 mls/ hr IVC CONT [facility] Rx#: [id number] FentaNYL (PF) 1,000 MCG 100 / 100 200 / 200 In 0.9 % Sodium Chloride 80 ML @ 50 MCG/HR 5 mls/ hr IVC CONT [facility] Rx#: [id number] Levophed 8 MG In Dextrose 762 / 762 288 / 288 5% 250 ML @ 5 MCG/MIN 9. 67 mls/hr IVC CONT [facility] Rx #:[id number] Diprivan 1,000 mg In 100 200 / 200 200 / 200 100 / 100 ml @ 5 MCG/KG/MIN 4.68 mls/hr IVC .[id number] [facility] Rx#:[id number] Vancocin 1,000 MG In 250 / 250 Dextrose 5% 250 ML @ 166. 667 mls/hr IVPB ONCE ONE Rx#:[id number] Rocephin 1,000 MG In 100 / 100 Dextrose 5% (Minibag+) 100 ML 100 ML @ 200 mls/ hr IVPB DAILY@0600 [facility] Rx #:[id number] Tube Feeding 128 / 128 Output: Catheter 150 / 150 800 / 800 Other: Blood Glucose* 209 163 163 - General Appearance Exam: General appearance: appears started age, moderate distress, sedated on ventilator, intubated, frail EENT: mucous membranes moist Neck: supple Respiratory: rales, course breath sounds, rhonchi Cardiology: regular rate, normal S1, normal S2 Gastrointestinal: normoactive bowel sounds, no tenderness, no guarding, obese Integumentary: warm and dry Neurologic: no asterixis Musculoskeletal: no erythema, no clubbing - Lab 03/16/17 05:00 03/16/17 20:28 Most recent lab results ABG pH 7.23 pH Units (7.32-7.45) L 03/15/17 04:47 ABG pCO2 51 mmHg (35-45) H 03/15/17 04:47 ABG pO2 88 mmHg (85-104) 03/15/17 04:47 ABG HCO3 21.4 mEQ/L (21-27) 03/15/17 04:47 ABG O2 Saturation 95 % (95-98) 03/15/17 04:47 Calcium 8.8 mg/dL (8.6-10.8) 03/15/17 03:41 Phosphorus 5.0 mg/dL (2.3-4.7) H 03/15/17 03:41 Magnesium 2.1 mg/dL (1.6-2.6) 03/15/17 03:41 Urine Creatinine 96 mg/dL 03/14/17 10:20 Urine Sodium < 20.0 mEq/L 03/14/17 10:20 Consult Discharge Plan - Plan Referrals: Cuca Carlos MD [Primary Care Provider] -
[2017-03-15 10:16] LABS: ABG Base Excess -5.3 mEq/L (-2.0 to 3.0); ABG Oxygen Saturation 98 % (95-98); ABG PCO2 49 mmHg (35-45); ABG PH 7.26 pH Units (7.32-7.45); ABG PO2 126 mmHg (85-104); ABG TCO2 23.5 mEq/L (20-26); Blood Gas FiO2 60 %
[2017-03-15] MEDS: Sennosides 8.6 MG TABLET PO SCH (12:40)
[2017-03-15 13:07] LABS: ABG HCO3 22.4 mEQ/L (21-27); ABG Oxygen Saturation 87 % (95-98); ABG PCO2 50 mmHg (35-45); ABG PH 7.26 pH Units (7.32-7.45); ABG PO2 62 mmHg (85-104); ABG TCO2 23.9 mEq/L (20-26)
[2017-03-15 13:08] LABS: Blood Gas FiO2 40 %
[2017-03-15 16:44] LABS: ABG Base Excess -5.8 mEq/L (-2.0 to 3.0); ABG HCO3 22.5 mEQ/L (21-27); ABG Oxygen Saturation 90 % (95-98); ABG PCO2 55 mmHg (35-45); ABG PH 7.22 pH Units (7.32-7.45); ABG PO2 71 mmHg (85-104); ABG TCO2 24.2 mEq/L (20-26); Blood Gas FiO2 60 %; Blood Gas PEEP 12 cm H2O; Blood Gas Respiration Rate 24; Blood Gas VT 440 cc
[2017-03-15 23:22] LABS: Osmolality,Urine 382 mOsm/kg (300-1090)
[2017-03-16] MEDS: Insulin LISPRO 300 UNITS/3 ML VIAL SQ SCH ×6 (00:24→21:45)
[2017-03-16] MEDS: Norepinephrine 8 MG in D5% in Water 250 ML IVC SCH ×5 (01:50→21:40)
[2017-03-16] MEDS: FentaNYL (PF) 3,000 MCG in 0.9 % Sodium Chloride 240 ML IVC SCH ×2 (03:20→21:41)
[2017-03-16] MEDS: Ipratropium/Albuterol Neb 3 ML IH SCH ×6 (04:20→23:30)
[2017-03-16 04:29] LABS: ABG Base Excess -7.7 mEq/L (-2.0 to 3.0); ABG HCO3 22.1 mEQ/L (21-27); ABG Oxygen Saturation 80 % (95-98); ABG PCO2 65 mmHg (35-45); ABG PO2 59 mmHg (85-104); ABG TCO2 24.1 mEq/L (20-26)
[2017-03-16 04:31] LABS: ABG PH 7.14 pH Units (7.32-7.45)
[2017-03-16 04:32] LABS: Blood Gas FiO2 60 %
[2017-03-16] MEDS: *HR* Heparin 5,000 UNIT/ML VIAL SQ SCH ×3 (04:55→23:07)
[2017-03-16 05:16] LABS: Basophils % 0.1 %; Eosinophils # 0.1 K/mcL (0.0-0.6); Eosinophils % 0.6 %; Hematocrit 38.3 % (37.5-50.1); Hemoglobin 12.3 g/dL (12.9-16.9); Immature Granulocytes % 8.1 % (0-4); Lymphocytes # 1.6 K/mcL (0.6-4.6); Lymphocytes % 7.4 %; Mean Corpuscular HGB Conc 32.1 g/dL (31.6-35.5); Mean Corpuscular Hemoglobin 30.9 pg (28.0-33.3); Mean Corpuscular Volume 96.2 fL (83.0-100.0); Mean Platelet Volume 11.2 fL (9.4-12.4); Monocytes % 9.3 %; Neutrophils # 15.8 K/mcL (1.6-8.9); Nucleated Red Blood Cells 0.3 /100 WBC (0); Platelet Count 250 K/mcL (140-400); Red Blood Count 3.98 M/mcL (4.19-5.50); Red Cell Distribution Width 15.9 % (11.5-14.5); Segmented Neutrophils % 74.5 %
[2017-03-16 05:27] LABS: Ionized Calcium 1.15 mmol/L (1.15-1.35)
[2017-03-16 05:38] LABS: ABG Base Excess -7.9 mEq/L (-2.0 to 3.0); ABG HCO3 20.9 mEQ/L (21-27); ABG Oxygen Saturation 99 % (95-98); ABG PCO2 56 mmHg (35-45); ABG PO2 141 mmHg (85-104); ABG TCO2 22.6 mEq/L (20-26)
[2017-03-16 05:43] LABS: Blood Gas FiO2 70 %
[2017-03-16 05:44] LABS: ABG PH 7.18 pH Units (7.32-7.45)
[2017-03-16 05:53] LABS: Albumin 2.1 g/dL (3.5-5.0); Albumin/Globulin Ratio 0.4 (1.1-2.2); Bilirubin,Total 0.5 mg/dL (0.2-1.2); Calcium 8.9 mg/dL (8.6-10.8); Globulin 4.7 g/dL (2.4-3.5); Magnesium 2.3 mg/dL (1.6-2.6); Total Protein 6.8 g/dL (6.0-8.3)
[2017-03-16 06:23] LABS: Platelet Estimate Normal (Normal)
[2017-03-16 06:26] LABS: Creatine Kinase 386 Units/L (30-200); Lipase 313 Units/L (8-78)
[2017-03-16 06:29] LABS: INR 1.1; Prothrombin Time 11.7 Seconds (9.4-12.1)
--- NOTE | 2017-03-16 06:42 | Pulmonology Progress Note ---
Date of Encounter: 03/16/17 Time of Encounter: 06:42 Assessment and Plan (1) ARDS (adult respiratory distress syndrome) Current Visit: Yes Status: Acute I spent 45 min of Critical Care time with this patient. It involved decision making of high complexity to assess, manipulate, and support vital organ system failure and/or to prevent further life threatening deterioration of the patient' s condition. The time involved in the performance of separately reportable procedures was not counted toward critical care time. Management was reviewed during multidisciplinary critical care rounds. Neuropsych: Sedated on vent switch propofol to Versed and Precedex along with infusion of fentanyl goal Diamond 3-4 while severity of hypoxic respiratory failure to decrease ventilator interactions. Not currently good candidate for sedation holiday given Vent requirement. Pulm: Acute hypoxic hypercarbic respiratory failure with refractory Hypoxemia s/ t to ARDS . Was receiving neuromuscular blockade now that is lifted with improvement in lung function still very severe P/F ratio Cont Low TV (6cc/kg) ventilation strategy with ARDSnet low Fio2/PEEP ladder. Ok for permissive. hypercapnia. PEEK/Plat acceptable on current settings. Steroids given for ARDS/ Severe CAP, Goal PaO2 >55. I adjusted vent today I had to temporarily increase FiO2 and PEEP however, repeat ABGs able to decrease PEEP back to below 70% PEEP remains at 14 today. Cont Duonebs for wheezing on exam. He received ventilator bundle to prevent ventilator associated pneumonia per protocol. Cards: Hypotenion felt most secondary to sedation requirement and acidosis. Lactate remains normal. Cont Vasopressor for goal MAP >60. HFpEF. FEN-GI: Cont enteral nutrition. PPI prophylaxis given. Continue Bowel regimen Lipase elevated possibly s/t Pancreatitis vs Propofol. Renal: Acute kidney injury which is likely multifactorial acute including prerenal azotemia from hypovolemia and sepsis along with use of DANNI inhibitor and nonsteroidal anti-inflammatory medication. Worsening renal function and decreased urine output overnight he does have features that may be consistent with propofol related infusion syndrome (AISHA) including elevated triglycerides and CPK and worsening metabolic acidosis I am stopping this infusion for other sedative medications as should also help with blood pressure. I discussed with cone worker Dr. Cuenca and we will likely place HD line today for continuous renal replacement. ID: Severe sepsis likely secondary to community acquired pneumonia persistent leukocytosis but cultures remain negative his received vancomycin ceftriaxone and azithromycin leukocytosis may impart be related to use of steroids on presentation Heme/Onc: DVT prophylaxis given H&H stable platelets stable continue to monitor Endo: Glucose Monitored and acceptable cont corrective insulin per scale. Integ/MSK: Skin Care per routine ICU Nursing Protocol to prevent ulcers. Lines: Right Groin CVC catheter. Dispo: Remains critically ill CODE: Full Code. Family updated at bedside (2) Yanna ayers Current Visit: No Status: Acute (3) LEMUEL (obstructive sleep apnea) Current Visit: No Status: Chronic (4) Pneumonia Current Visit: No Status: Acute Qualifiers: Pneumonia type: due to unspecified organism Laterality: unspecified laterality Lung location: unspecified part of lung Qualified Code(s): J18.9 - Pneumonia, unspecified organism (5) Acute renal failure Current Visit: No Status: Acute Qualifiers: Acute renal failure type: unspecified Qualified Code(s): N17.9 - Acute kidney failure, unspecified (6) Acute respiratory failure with hypoxia Current Visit: Yes Status: Acute (7) Sepsis associated hypotension Current Visit: Yes Status: Acute (8) DVT prophylaxis Current Visit: Yes Status: Acute (9) Metabolic acidosis Current Visit: Yes Status: Acute Subjective Principal diagnosis: ARDS Interval history: Neuromuscular blockade was stopped yesterday afternoon. He had mild worsening in oxygenation and ventilation with a developing metabolic acidosis and increased vasopressor requirements. Urine output has been decreasing. Objective PUL Vital signs: Last Vital Signs Temp 98.3 F 03/16/17 04:00 Pulse 76 03/16/17 05:00 Resp 28 03/16/17 05:35 BP 93/46 03/16/17 05:35 Pulse Ox 100 03/16/17 05:35 General appearance: other (Sedated on vent he has glabellar reflex present) Eyes: nonicteric Auscultation: bilateral: diminished breath sounds Cardiovascular: regular rate and rhythm Gastrointestinal: hypoactive bowel sounds, soft, non-tender Integumentary: other (Intertrigal erythema) Extremities: edema pupils equal and round, other (He spontaneously moves all extremities is not following commands) Ventilator Settings Ventilator Settings: Ventilator Settings, Last 8 Hours Ventilator Mode A/C Ventilator Mode A/C Ventilator Mode A/C Ventilator Mode A/C Ventilator Mode A/C Ventilator Mode A/C Ventilator Mode A/C Ventilator Mode A/C Ventilator Mode A/C Ventilator Mode A/C Ventilator Mode A/C Ventilator Mode A/C Ventilator Mode A/C Ventilator Tidal Volume 440 Setting Ventilator Tidal Volume 440 Setting Ventilator Tidal Volume 440 Setting Ventilator Tidal Volume 440 Setting Ventilator Tidal Volume 440 Setting Ventilator Tidal Volume 440 Setting Ventilator Tidal Volume 440 Setting Ventilator Tidal Volume 440 Setting Ventilator Tidal Volume 440 Setting Ventilator Tidal Volume 440 Setting Ventilator Tidal Volume 440 Setting Ventilator Tidal Volume 440 Setting Ventilator Tidal Volume 440 Setting Ventilator Respiratory Rate 28 Setting Ventilator Respiratory Rate 28 Setting Ventilator Respiratory Rate 28 Setting Ventilator Respiratory Rate 24 Setting Ventilator Respiratory Rate 24 Setting Ventilator Respiratory Rate 24 Setting Ventilator Respiratory Rate 24 Setting Ventilator Respiratory Rate 24 Setting Ventilator Respiratory Rate 24 Setting Ventilator Respiratory Rate 24 Setting Ventilator Respiratory Rate 24 Setting Ventilator Respiratory Rate 24 Setting Ventilator Respiratory Rate 24 Setting Actual Respiratory Rate 28 Actual Respiratory Rate 24 Actual Respiratory Rate 24 Actual Respiratory Rate 24 Positive End Expiratory 14 Pressure Positive End Expiratory 14 Pressure Positive End Expiratory 14 Pressure Positive End Expiratory 12 Pressure Positive End Expiratory 12 Pressure Positive End Expiratory 12 Pressure Positive End Expiratory 12 Pressure Positive End Expiratory 12 Pressure Positive End Expiratory 12 Pressure Positive End Expiratory 12 Pressure Positive End Expiratory 12 Pressure Positive End Expiratory 12 Pressure Positive End Expiratory 12 Pressure Peak Inspiratory Airway 38 Pressure Peak Inspiratory Airway 35 Pressure Peak Inspiratory Airway 34 Pressure Peak Inspiratory Airway 30 Pressure Results - Laboratory Findings CBC and BMP: 03/16/17 05:00 03/16/17 05:00 ABG ABG pH 7.18 pH Units (7.32-7.45) L* 03/16/17 05:22 ABG pCO2 56 mmHg (35-45) H 03/16/17 05:22 ABG pO2 141 mmHg (85-104) H 03/16/17 05:22 ABG O2 Saturation 99 % (95-98) H 03/16/17 05:22 PT/INR, D-dimer PT 11.7 Seconds (9.4-12.1) 03/16/17 06:19 Abnormal lab findings: Abnormal lab results WBC 21.2 K/mcL (4.3-11.1) H 03/16/17 05:00 RBC 3.98 M/mcL (4.19-5.50) L 03/16/17 05:00 Hgb 12.3 g/dL (12.9-16.9) L 03/16/17 05:00 RDW 15.9 % (11.5-14.5) H 03/16/17 05:00 Immature Gran % 8.1 % (0-4) H 03/16/17 05:00 Neutrophils # 15.8 K/mcL (1.6-8.9) H 03/16/17 05:00 Monocytes # 2.0 K/mcL (0.0-1.3) H 03/16/17 05:00 Nucleated RBCs/100 WBC 0.3 /100 WBC (0) H 03/16/17 05:00 Reactive Lymphocytes Present (Not Present) A 03/15/17 03:41 Smudge Cells Present (Not Present) A 03/14/17 04:45 Toxic Granulation Present (Not Present) A 03/15/17 03:41 Large Platelets Present (Not Present) A 03/15/17 03:41 ABG pH 7.18 pH Units (7.32-7.45) L* 03/16/17 05:22 ABG pCO2 56 mmHg (35-45) H 03/16/17 05:22 ABG pO2 141 mmHg (85-104) H 03/16/17 05:22 ABG HCO3 20.9 mEQ/L (21-27) L 03/16/17 05:22 ABG O2 Saturation 99 % (95-98) H 03/16/17 05:22 ABG Base Excess -7.9 mEq/L (-2.0 to 3.0) L 03/16/17 05:22 Sodium 132 mEq/L (136-145) L 03/16/17 05:00 Potassium 5.0 mEq/L (3.5-4.5) H 03/16/17 05:00 BUN 81 mg/dL (8-26) H 03/16/17 05:00 Creatinine 2.96 mg/dL (0.72-1.25) H 03/16/17 05:00 Est GFR ( Amer) 26 (> 60) L 03/16/17 05:00 Est GFR (Non-Af Amer) 21 (> 60) L 03/16/17 05:00 BUN/Creatinine Ratio 27 (6-26) H 03/16/17 05:00 Glucose 104 mg/dL (70-99) H 03/16/17 05:00 POC Glucose 106 (58-89) H 03/15/17 23:57 Phosphorus 6.0 mg/dL (2.3-4.7) H 03/16/17 05:00 Creatine Kinase 386 Units/L (30-200) H 03/16/17 05:58 Albumin 2.1 g/dL (3.5-5.0) L 03/16/17 05:00 Globulin 4.7 g/dL (2.4-3.5) H 03/16/17 05:00 Albumin/Globulin Ratio 0.4 (1.1-2.2) L 03/16/17 05:00 Lipase 313 Units/L (8-78) H 03/16/17 05:58 Urine Clarity Cloudy (Clear) A 03/13/17 16:00 Urine Bilirubin Small (Negative) H 03/13/17 16:00 Ur Leukocyte Esterase Small (Negative) H 03/13/17 16:00 Ur Squamous Epith Cells Many per lpf (None-Few) H 03/13/17 16:00 Ur Culture Indicated? YES (NO) A 03/13/17 16:00 - Microbiology Findings Microbiology Findings: Microbiology, Last 48 Hours 03/13/17 16:00 Urine Culture - Final Urine,Clean Catch No growth. - Clinical Findings Intake & Output: Intake & Output 03/15/17 03/15/17 03/16/17 15:59 23:59 07:59 Intake Total 678 / 678 910 / 910 878 / 878 Output Total 600 / 600 75 / 75 Balance 678 / 678 310 / 310 803 / 803 Weight 163.6 kg Consult Discharge Plan - Plan Referrals: Cuca Carlos MD [Primary Care Provider] -
[2017-03-16] MEDS: Dexmedetomidine HCl 400 MCG/100 ML MLS IVC SCH ×3 (08:13→22:18)
[2017-03-16] MEDS: Azithromycin 500 MG in D5% in Water 250 ML IVPB SCH (08:14)
[2017-03-16] MEDS: Chlorhexidine Rinse 15 ML MOUTHWASH MM SCH ×2 (08:14→21:41)
[2017-03-16] MEDS: Sennosides 8.6 MG TABLET PO SCH (08:14)
[2017-03-16] MEDS: Pantoprazole 40 MG VIAL IVP SCH (08:15)
[2017-03-16] MEDS: Vasopressin 40 UNIT in D5% in Water 100 ML IV SCH ×2 (08:15→13:05)
--- NOTE | 2017-03-16 09:02 | Nephrology Progress Note ---
Date of Encounter: 03/17/17 Time of Encounter: 08:58 - Assessment and Plan (1) Acute kidney injury Current Visit: Yes Status: Acute Continue to worsen renal function. Electrolytes: ongoing mild hyperkalemia and hyponatremia Severe leukocytosis with acute respiratory failure consistent with ARDS Though his UOP is non-oliguric, I suspect he has likely developed ATN in the critically ill setting, therefore, I recommend start CVVHDF. Will request IR's assistance with placing a temporary HD catheter. Start 4K/2.5Ca 1250mL/hr for dialysate and replacement fluid with citrate/ calcium gtt. Will monitor LFTs BFR to start at 100mL/hr and UF goal of Net+10mL/hr, both as tolerated by hemodynamics. Continue to follow a renal protective strategy Discussed with the ICU team. (2) Hyperkalemia Current Visit: Yes Status: Acute Remains borderline elevated (3) Acute respiratory failure with hypoxia Current Visit: Yes Status: Acute As primary (4) Sepsis associated hypotension Current Visit: Yes Status: Acute As per primary Subjective Principal diagnosis: ARDS Interval history: Pt was s/e earlier today. The RN reported declining UOP since about 4am. He remains critically ill -- thus limiting the subjective history. Objective - Vital Signs Vital signs: Vital Signs Temp Pulse Resp BP Pulse Ox 03/16/17 08:00 74 28 108/46 96 03/16/17 07:59 97.9 F 03/16/17 07:58 28 96 03/16/17 07:49 75 03/16/17 07:00 77 28 110/49 98 03/16/17 06:00 86 28 107/53 92 03/16/17 05:35 28 93/46 100 03/16/17 05:00 76 28 99/47 100 03/16/17 04:20 24 90/45 92 03/16/17 04:00 98.3 F 78 24 161/86 96 03/16/17 03:00 80 24 102/56 94 03/16/17 02:00 80 24 102/56 94 03/16/17 01:00 80 24 93/54 93 03/16/17 00:53 24 88/53 93 03/16/17 00:22 80 24 98/50 92 03/16/17 00:19 80 03/16/17 00:17 98.1 F 03/15/17 23:33 24 100/50 93 03/15/17 23:00 81 25 97/49 92 03/15/17 22:00 80 24 89/48 93 03/15/17 21:56 24 95/49 93 03/15/17 21:00 81 24 85/45 91 03/15/17 20:44 98.0 F 03/15/17 20:00 83 24 85/46 93 03/15/17 19:43 25 80/45 95 03/15/17 19:00 88 24 105/53 93 03/15/17 18:00 98.0 F 82 24 106/53 92 03/15/17 17:05 24 88/48 92 03/15/17 17:00 80 24 89/48 92 03/15/17 16:00 98.0 F 76 24 101/52 97 03/15/17 15:45 24 109/55 92 03/15/17 15:00 85 24 99/51 95 03/15/17 14:00 90 28 132/62 95 03/15/17 13:01 24 91/52 93 03/15/17 13:00 81 28 103/54 95 03/15/17 12:00 98.1 F 80 28 113/58 95 03/15/17 11:51 98.1 F 03/15/17 11:16 28 116/59 94 03/15/17 11:00 79 30 109/58 96 03/15/17 10:00 93 30 134/67 96 03/15/17 09:55 30 143/70 96 03/15/17 09:00 93 30 137/71 96 Intake and Output 03/15/17 03/16/17 03/16/17 23:59 07:59 15:59 Intake Total 910 / 910 914 / 914 100 / 100 Output Total 600 / 600 125 / 125 Balance 310 / 310 789 / 789 100 / 100 Intake: IV Fluids 758 / 758 816 / 816 100 / 100 FentaNYL (PF) 1,000 MCG 200 / 200 100 / 100 In 0.9 % Sodium Chloride 80 ML @ 50 MCG/HR 5 mls/ hr IVC CONT ALYX Rx#: [id number] Levophed 8 MG In Dextrose 358 / 358 516 / 516 5% 250 ML @ 5 MCG/MIN 9. 67 mls/hr IVC CONT ALYX Rx #:[id number] Diprivan 1,000 mg In 100 200 / 200 200 / 200 ml @ 5 MCG/KG/MIN 4.68 mls/hr IVC .[id number] [facility] Rx#:[id number] Rocephin 1,000 MG In 100 / 100 Dextrose 5% (Minibag+) 100 ML 100 ML @ 200 mls/ hr IVPB DAILY@0600 [facility] Rx #:[id number] Tube Feeding 152 / 152 98 / 98 Output: Catheter 600 / 600 125 / 125 Other: Weight 163.6 kg Blood Glucose* 92 102 Patient Weight 03/16/17 23:59 Weight 163.6 kg - General Appearance Exam: General appearance: appears started age, moderate distress, sedated on ventilator, intubated, frail EENT: mucous membranes moist Neck: supple Respiratory: rales, course breath sounds, rhonchi Cardiology: regular rate, normal S1, normal S2 Gastrointestinal: normoactive bowel sounds, no tenderness, no guarding, obese Integumentary: warm and dry Neurologic: no asterixis Musculoskeletal: no erythema, no clubbing - Lab 03/16/17 05:00 03/16/17 20:28 Most recent lab results ABG pH 7.18 pH Units (7.32-7.45) L* 03/16/17 05:22 ABG pCO2 56 mmHg (35-45) H 03/16/17 05:22 ABG pO2 141 mmHg (85-104) H 03/16/17 05:22 ABG HCO3 20.9 mEQ/L (21-27) L 03/16/17 05:22 ABG O2 Saturation 99 % (95-98) H 03/16/17 05:22 Calcium 8.9 mg/dL (8.6-10.8) 03/16/17 05:00 Phosphorus 6.0 mg/dL (2.3-4.7) H 03/16/17 05:00 Magnesium 2.3 mg/dL (1.6-2.6) 03/16/17 05:00 Urine Creatinine 96 mg/dL 03/14/17 10:20 Urine Sodium < 20.0 mEq/L 03/14/17 10:20 Consult Discharge Plan - Plan Referrals: Cuca Carlos MD [Primary Care Provider] -
[2017-03-16] MEDS ORDERED: 0.9 % Sodium Chloride 1,000 ML PRIME SCH (09:05)
[2017-03-16] MEDS ORDERED: *HR* Heparin 5,000 UNIT/ML VIAL IV PRN (09:05)
[2017-03-16] MEDS ORDERED: Calcium Gluconate 2,000 MG in D5% in Water 100 ML IVPB PRN (09:05)
[2017-03-16 10:39] LABS: ABG Base Excess -7.6 mEq/L (-2.0 to 3.0); ABG Oxygen Saturation 94 % (95-98); ABG PCO2 55 mmHg (35-45); ABG PO2 85 mmHg (85-104); ABG TCO2 22.7 mEq/L (20-26)
[2017-03-16 10:40] LABS: ABG PH 7.19 pH Units (7.32-7.45)
[2017-03-16 10:41] LABS: Blood Gas FiO2 50 %; Blood Gas PEEP 14 cm H2O; Blood Gas VT 440 cc
[2017-03-16] MEDS ORDERED: *HR* Heparin 5,000 UNIT/ML VIAL ONE (11:32)
[2017-03-16] MEDS ORDERED: 0.9 % Sodium Chloride 1,000 ML ONE (12:20)
[2017-03-16] MEDS ORDERED: Albumin Human 5% 25 GM/500 ML VIAL IVC SCH (12:45)
--- NOTE | 2017-03-16 14:19 | Event Note ---
Date of Encounter: 03/16/17 Time of Encounter: 14:17 I met with the to speak about patient's prognosis and clinical course. Re- explained that patient was critically ill requiring vasopressor support and full ventilatory support along with continuous renal replacement. She was wondering if cardiopulmonary resuscitation was indicated in this situation the event of cardiac arrest she had misgivings about the procedure given how critically ill he has not if this would be deemed of medical benefit I explained that cardiac arrest in this situation would be likely be fatal if he were to survive that event he would be most likely permanently incapacitated/ disabled. She does not want to pursue cardiopulmonary resuscitation in the event of cardiac arrest and code Status was changed to reflect this. Bedside ICU nurse was also present for this meeting The patient is unable or incompetent to participate in giving a history and/or making treatment decisions. The discussion was necessary for determining treatment decision. This discussion took place in the [ICU]. The total meeting time was [15 minutes
[2017-03-16 14:46] LABS: ABG Base Excess -7.2 mEq/L (-2.0 to 3.0); ABG HCO3 20.5 mEQ/L (21-27); ABG Oxygen Saturation 99 % (95-98); ABG PCO2 49 mmHg (35-45); ABG PH 7.23 pH Units (7.32-7.45); ABG PO2 144 mmHg (85-104)
[2017-03-16 14:47] LABS: Blood Gas FiO2 80 %; Blood Gas PEEP 14 cm H2O; Blood Gas VT 460 cc
[2017-03-16] MEDS: Calcium Chloride 4,000 MG in 0.9 % Sodium Chloride 1,000 ML CRRT SCH (15:00)
[2017-03-16] MEDS: PrismaSATE BGK 4/2.5 5,000 ML CRRT SCH ×6 (15:00→23:41)
[2017-03-16] MEDS ORDERED: Vancomycin 500 MG in D5% in Water (Mini-Bag+) 100 ML IVPB ONE (17:00)
[2017-03-16] MEDS: SODIUM CHLORIDE 0.9% IVC SCH (17:15)
[2017-03-16] MEDS: ATRACURIUM IVC SCH (17:15)
[2017-03-16] MEDS ORDERED: *HR* Atropine Sulfate 1 MG/10 ML SYRINGE ONE (20:22)
[2017-03-16 20:35] LABS: ABG Base Excess -6.1 mEq/L (-2.0 to 3.0); ABG HCO3 21.8 mEQ/L (21-27); ABG Oxygen Saturation 77 % (95-98); ABG PCO2 52 mmHg (35-45); ABG PH 7.23 pH Units (7.32-7.45); ABG TCO2 23.4 mEq/L (20-26)
[2017-03-16 20:36] LABS: Blood Gas FiO2 70 %
[2017-03-16 20:37] LABS: ABG PO2 50 mmHg (85-104)
[2017-03-16 21:10] LABS: Albumin 2.3 g/dL (3.5-5.0); Calcium 9.2 mg/dL (8.6-10.8); Phosphorous 5.1 mg/dL (2.3-4.7); Potassium 4.6 mEq/L (3.5-4.5)
[2017-03-16] MEDS: Hydrocortisone Sodium Succ 100 MG/2 ML VIAL IVP SCH (22:18)
[2017-03-17] MEDS: Insulin LISPRO 300 UNITS/3 ML VIAL SQ SCH ×6 (00:11→20:52)
[2017-03-17] MEDS: Dexmedetomidine HCl 400 MCG/100 ML MLS IVC SCH ×3 (01:43→20:14)
[2017-03-17 03:24] LABS: Hematocrit 35.8 % (37.5-50.1); Hemoglobin 11.4 g/dL (12.9-16.9); Mean Corpuscular HGB Conc 31.8 g/dL (31.6-35.5); Mean Corpuscular Hemoglobin 30.2 pg (28.0-33.3); Mean Platelet Volume 10.8 fL (9.4-12.4); Platelet Count 175 K/mcL (140-400); Red Blood Count 3.77 M/mcL (4.19-5.50); Red Cell Distribution Width 15.5 % (11.5-14.5)
[2017-03-17 03:30] LABS: Ionized Calcium 1.2 mmol/L (1.15-1.35)
[2017-03-17 03:33] LABS: INR 1.1; Prothrombin Time 12.3 Seconds (9.4-12.1)
[2017-03-17 03:35] LABS: Activated Partial Thrombo Time 25.6 Seconds (26.0-36.0)
[2017-03-17 03:39] LABS: Albumin 2.1 g/dL (3.5-5.0); Albumin/Globulin Ratio 0.5 (1.1-2.2); Calcium 9.2 mg/dL (8.6-10.8); Globulin 4.2 g/dL (2.4-3.5); Potassium 5.2 mEq/L (3.5-4.5); Total Protein 6.3 g/dL (6.0-8.3)
[2017-03-17 03:40] LABS: Bilirubin,Total 1.2 mg/dL (0.2-1.2); Magnesium 2.1 mg/dL (1.6-2.6); Phosphorous 4.8 mg/dL (2.3-4.7)
[2017-03-17 03:47] LABS: Basophils # 0.4 K/mcL (0.0-0.2); Monocytes # 0.4 K/mcL (0.0-1.3); Neutrophils # 21.3 K/mcL (1.6-8.9)
[2017-03-17 03:48] LABS: Platelet Estimate Normal (Normal); Polychromasia 1+ (Not Present)
[2017-03-17] MEDS: Ipratropium/Albuterol Neb 3 ML IH SCH ×6 (03:50→23:41)
[2017-03-17] MEDS: PrismaSATE BGK 4/2.5 5,000 ML CRRT SCH ×10 (04:18→20:30)
[2017-03-17 04:19] LABS: ABG Base Excess -2.9 mEq/L (-2.0 to 3.0); ABG Oxygen Saturation 100 % (95-98); ABG PCO2 50 mmHg (35-45); ABG PH 7.29 pH Units (7.32-7.45); ABG PO2 212 mmHg (85-104); ABG TCO2 25.5 mEq/L (20-26)
[2017-03-17 04:20] LABS: Blood Gas FiO2 100 %
[2017-03-17] MEDS: *HR* Heparin 5,000 UNIT/ML VIAL SQ SCH ×3 (04:44→21:06)
[2017-03-17] MEDS: Vasopressin 40 UNIT in D5% in Water 100 ML IV SCH ×2 (05:24→17:47)
--- NOTE | 2017-03-17 06:31 | Pulmonology Progress Note ---
Date of Encounter: 03/17/17 Time of Encounter: 06:31 Assessment and Plan (1) ARDS (adult respiratory distress syndrome) Current Visit: Yes Status: Acute I spent 35 min of Critical Care time with this patient. It involved decision making of high complexity to assess, manipulate, and support vital organ system failure and/or to prevent further life threatening deterioration of the patient' s condition. The time involved in the performance of separately reportable procedures was not counted toward critical care time. Management was reviewed during multidisciplinary critical care rounds. Neuropsych: Sedated on vent switch with low-dose infusion of Versed, Fentanyl and Precedex along with infusion of fentanyl goal Diamond 3 while. Start daily sedation holiday Pulm: Acute hypoxic hypercarbic respiratory failure with refractory Hypoxemia s/ t to ARDS Stable CXR modest improvement in lung function but still very severe P /F ratio Cont Low TV (6cc/kg) ventilation strategy with ARDSnet low Fio2/PEEP ladder. Ok for permissive. hypercapnia. PEEK/Plat acceptable on current settings , Goal PaO2 >55. I adjusted vent today for ventilator dyssynchrony to VC plus mode with improved mechanics. He received ventilator bundle to prevent ventilator associated pneumonia per protocol. We will consider bronchoscopy with PEEP requirements have decreased Cards: Remains hypotensive requiring vasopressors. Lactate remains normal. Cont Vasopressor for goal MAP >60. HFpEF. Given increase in pressor requirements and consideration of septic shock I have also added stress dose steroids. FEN-GI: enteral nutrition on hold because of high residuals likely secondary to ileus from critical illness and electrolyte abnormalities. PPI prophylaxis given. Continue Bowel regimen. Renal: Acute kidney injury which is likely multifactorial he is requrring CRRT for oliguria with decline in creatine clearance. Nephrology following I appreciate the recommendations. We are continuing to employee renal protective strategy including dosing of all medications patient over the pharmacy staff for their input. ID: Severe sepsis likely secondary to community acquired pneumonia persistent leukocytosis but cultures remain negative he is being treated for 20 acquired pneumonia and possibility of MRSA pneumonia although cultures remain negative thus far persistent leukocytosis possibly component of steroid use. Heme/Onc: DVT prophylaxis given H&H stable and platelets are stable continue to monitor. Endo: Glucose Monitored and has been elevated after addition of steroids will increase corrective insulin scale. Integ/MSK: Skin Care per routine ICU Nursing Protocol to prevent ulcers. Continue stress dose hydrocortisone Lines: Right Groin CVC catheter. Right temporary HD catheter plan for removal of groin catheter today with placement of PICC line Dispo: Remains critically ill CODE: DNAR/DNI. Family updated at bedside (2) Tinea cruris Current Visit: No Status: Acute (3) LEMUEL (obstructive sleep apnea) Current Visit: No Status: Chronic (4) Pneumonia Current Visit: No Status: Acute Qualifiers: Pneumonia type: due to unspecified organism Laterality: unspecified laterality Lung location: unspecified part of lung Qualified Code(s): J18.9 - Pneumonia, unspecified organism (5) Acute renal failure Current Visit: No Status: Acute Qualifiers: Acute renal failure type: unspecified Qualified Code(s): N17.9 - Acute kidney failure, unspecified (6) Acute respiratory failure with hypoxia Current Visit: Yes Status: Acute (7) Sepsis associated hypotension Current Visit: Yes Status: Acute (8) DVT prophylaxis Current Visit: Yes Status: Acute (9) Metabolic acidosis Current Visit: Yes Status: Acute Subjective Principal diagnosis: ARDS Interval history: Patient remains on multiple vasopressors although doses have been decreased over the last 12 hours. Also made improvement from standpoint of require O2 requirement now down to 60% FiO2 and with renal replacement therapy metabolic acidosis is also improving. Per nursing staff they are having more frequent suctioning of thick tenacious mucoid secretions from endotracheal tube. Objective PUL Vital signs: Last Vital Signs Temp 98.0 F 03/17/17 04:00 Pulse 73 03/17/17 06:00 Resp 24 03/17/17 06:00 BP 92/51 03/17/17 06:00 Pulse Ox 98 03/17/17 06:00 General appearance: other (He is breathing over the vent has spontaneous movement of his extremities does not consistently respond to my voice) Eyes: nonicteric ENT: other (Endotracheal tube in satisfactory position) Auscultation: bilateral: diminished breath sounds, rales, rhonchi Cardiovascular: regular rate and rhythm Gastrointestinal: hypoactive bowel sounds, soft, non-tender Extremities: edema pupils equal and round (Spontaneous movement of extremities and he does withdraw to pain does not appear to have focal deficit. On this examination) Ventilator Settings Ventilator Settings: Ventilator Settings, Last 8 Hours Ventilator Mode A/C Ventilator Mode A/C Ventilator Mode A/C Ventilator Mode A/C Ventilator Mode A/C Ventilator Mode A/C Ventilator Mode A/C Ventilator Mode A/C Ventilator Mode A/C Ventilator Mode A/C Ventilator Mode A/C Ventilator Mode A/C Ventilator Mode A/C Ventilator Tidal Volume 460 Setting Ventilator Tidal Volume 460 Setting Ventilator Tidal Volume 460 Setting Ventilator Tidal Volume 460 Setting Ventilator Tidal Volume 460 Setting Ventilator Tidal Volume 460 Setting Ventilator Tidal Volume 460 Setting Ventilator Tidal Volume 460 Setting Ventilator Tidal Volume 460 Setting Ventilator Tidal Volume 460 Setting Ventilator Tidal Volume 460 Setting Ventilator Tidal Volume 460 Setting Ventilator Tidal Volume 460 Setting Ventilator Respiratory Rate 24 Setting Ventilator Respiratory Rate 24 Setting Ventilator Respiratory Rate 28 Setting Ventilator Respiratory Rate 28 Setting Ventilator Respiratory Rate 28 Setting Ventilator Respiratory Rate 28 Setting Ventilator Respiratory Rate 28 Setting Ventilator Respiratory Rate 28 Setting Ventilator Respiratory Rate 28 Setting Ventilator Respiratory Rate 28 Setting Ventilator Respiratory Rate 28 Setting Ventilator Respiratory Rate 28 Setting Ventilator Respiratory Rate 28 Setting Actual Respiratory Rate 24 Actual Respiratory Rate 28 Actual Respiratory Rate 28 Actual Respiratory Rate 28 Positive End Expiratory 14 Pressure Positive End Expiratory 14 Pressure Positive End Expiratory 14 Pressure Positive End Expiratory 14 Pressure Positive End Expiratory 14 Pressure Positive End Expiratory 14 Pressure Positive End Expiratory 14 Pressure Positive End Expiratory 14 Pressure Positive End Expiratory 14 Pressure Positive End Expiratory 14 Pressure Positive End Expiratory 14 Pressure Positive End Expiratory 14 Pressure Positive End Expiratory 14 Pressure Peak Inspiratory Airway 37 Pressure Peak Inspiratory Airway 42 Pressure Peak Inspiratory Airway 26 Pressure Peak Inspiratory Airway 35 Pressure Results - Laboratory Findings CBC and BMP: 03/17/17 03:15 03/17/17 03:15 ABG ABG pH 7.29 pH Units (7.32-7.45) L 03/17/17 04:13 ABG pCO2 50 mmHg (35-45) H 03/17/17 04:13 ABG pO2 212 mmHg (85-104) H 03/17/17 04:13 ABG O2 Saturation 100 % (95-98) H 03/17/17 04:13 PT/INR, D-dimer PT 12.3 Seconds (9.4-12.1) H 03/17/17 03:15 Abnormal lab findings: Abnormal lab results WBC 22.2 K/mcL (4.3-11.1) H 03/17/17 03:15 RBC 3.77 M/mcL (4.19-5.50) L 03/17/17 03:15 Hgb 11.4 g/dL (12.9-16.9) L 03/17/17 03:15 Hct 35.8 % (37.5-50.1) L 03/17/17 03:15 RDW 15.5 % (11.5-14.5) H 03/17/17 03:15 Immature Gran % 8.1 % (0-4) H 03/16/17 05:00 Neutrophils # 21.3 K/mcL (1.6-8.9) H 03/17/17 03:15 Basophils # 0.4 K/mcL (0.0-0.2) H 03/17/17 03:15 Nucleated RBCs/100 WBC 0.3 /100 WBC (0) H 03/16/17 05:00 Reactive Lymphocytes Present (Not Present) A 03/15/17 03:41 Smudge Cells Present (Not Present) A 03/14/17 04:45 Toxic Granulation Present (Not Present) A 03/15/17 03:41 Large Platelets Present (Not Present) A 03/15/17 03:41 Polychromasia 1+ (Not Present) A 03/17/17 03:15 PT 12.3 Seconds (9.4-12.1) H 03/17/17 03:15 APTT 25.6 Seconds (26.0-36.0) L 03/17/17 03:15 ABG pH 7.29 pH Units (7.32-7.45) L 03/17/17 04:13 ABG pCO2 50 mmHg (35-45) H 03/17/17 04:13 ABG pO2 212 mmHg (85-104) H 03/17/17 04:13 ABG O2 Saturation 100 % (95-98) H 03/17/17 04:13 ABG Base Excess -2.9 mEq/L (-2.0 to 3.0) L 03/17/17 04:13 Sodium 134 mEq/L (136-145) L 03/17/17 03:15 Potassium 5.2 mEq/L (3.5-4.5) H 03/17/17 03:15 BUN 49 mg/dL (8-26) H D 03/17/17 03:15 Creatinine 1.52 mg/dL (0.72-1.25) H 03/17/17 03:15 Est GFR ( Amer) 55 (> 60) L 03/17/17 03:15 Est GFR (Non-Af Amer) 45 (> 60) L 03/17/17 03:15 BUN/Creatinine Ratio 32 (6-26) H 03/17/17 03:15 Glucose 158 mg/dL (70-99) H 03/17/17 03:15 POC Glucose 174 (58-89) H 03/17/17 00:09 Phosphorus 4.8 mg/dL (2.3-4.7) H 03/17/17 03:15 Creatine Kinase 386 Units/L (30-200) H 03/16/17 05:58 Albumin 2.1 g/dL (3.5-5.0) L 03/17/17 03:15 Globulin 4.2 g/dL (2.4-3.5) H 03/17/17 03:15 Albumin/Globulin Ratio 0.5 (1.1-2.2) L 03/17/17 03:15 Lipase 313 Units/L (8-78) H 03/16/17 05:58 Urine Clarity Cloudy (Clear) A 03/13/17 16:00 Urine Bilirubin Small (Negative) H 03/13/17 16:00 Ur Leukocyte Esterase Small (Negative) H 03/13/17 16:00 Ur Squamous Epith Cells Many per lpf (None-Few) H 03/13/17 16:00 Ur Culture Indicated? YES (NO) A 03/13/17 16:00 - Microbiology Findings Microbiology Findings: Microbiology, Last 48 Hours 03/16/17 17:00 Sputum Culture - Preliminary Sputum 03/13/17 16:00 Urine Culture - Final Urine,Clean Catch No growth. - Clinical Findings Intake & Output: Intake & Output 03/16/17 03/16/17 03/17/17 15:59 23:59 07:59 Intake Total 1226 / 1226 1580 / 1580 402 / 402 Output Total 350 / 350 1172 / 1172 1273 / 1273 Balance 876 / 876 408 / 408 -871 / -871 Weight 179.895 kg Consult Discharge Plan - Plan Referrals: Cuca Carlos MD [Primary Care Provider] -
[2017-03-17] MEDS: Norepinephrine 8 MG in D5% in Water 250 ML IVC SCH ×2 (06:43→18:17)
[2017-03-17] MEDS: Chlorhexidine Rinse 15 ML MOUTHWASH MM SCH ×2 (08:31→20:45)
[2017-03-17] MEDS: Pantoprazole 40 MG VIAL IVP SCH (08:32)
[2017-03-17] MEDS: Hydrocortisone Sodium Succ 100 MG/2 ML VIAL IVP SCH ×3 (08:33→20:44)
[2017-03-17] MEDS: Sennosides 8.6 MG TABLET PO SCH (08:33)
[2017-03-17] MEDS: Azithromycin 500 MG in D5% in Water 250 ML IVPB SCH (08:34)
[2017-03-17] MEDS ORDERED: Vancomycin 1,500 MG in D5% in Water 250 ML IVPB ONE (09:00)
[2017-03-17] MEDS: Calcium Chloride 4,000 MG in 0.9 % Sodium Chloride 1,000 ML CRRT SCH ×2 (09:49→20:52)
[2017-03-17] MEDS: Calcium Gluconate 1,000 MG in D5% in Water 100 ML IVPB PRN ×4 (09:49→23:30)
[2017-03-17] MEDS ORDERED: *HR* Heparin 5,000 UNIT/ML VIAL ONE ×4 (11:15→23:26)
--- NOTE | 2017-03-17 11:24 | Nephrology Progress Note ---
Date of Encounter: 03/17/17 Time of Encounter: 11:13 Subjective Principal diagnosis: ARDS Interval history: Patient seen and evaluated. Patient is on CVVHD. Objective - Vital Signs Vital signs: Vital Signs Temp Pulse Resp BP Pulse Ox 03/17/17 10:00 72 19 116/58 95 03/17/17 09:11 20 119/55 96 03/17/17 09:00 76 19 125/58 95 03/17/17 08:00 98.8 F 79 20 124/57 95 03/17/17 07:49 98.8 F 03/17/17 07:46 23 117/51 93 03/17/17 07:45 73 03/17/17 07:00 77 24 79/41 90 03/17/17 06:00 73 24 92/51 98 03/17/17 05:39 24 96/53 100 03/17/17 05:00 67 24 82/47 100 03/17/17 04:00 98.0 F 60 28 98/51 100 03/17/17 03:50 28 94/49 100 03/17/17 03:00 67 28 97/56 100 03/17/17 02:00 69 28 90/53 100 03/17/17 01:21 28 105/56 98 03/17/17 01:00 75 31 122/64 99 03/17/17 00:15 75 03/17/17 00:11 96.5 F L 73 28 104/56 95 03/16/17 23:30 28 119/62 91 03/16/17 23:00 71 28 115/59 90 03/16/17 22:00 96.3 F L 68 28 114/58 96 03/16/17 21:48 28 112/59 94 03/16/17 21:00 79 33 126/70 94 03/16/17 20:00 65 28 123/62 88 03/16/17 19:54 31 121/62 90 03/16/17 19:00 67 32 120/60 91 03/16/17 18:11 30 90 03/16/17 18:00 65 31 133/66 89 03/16/17 17:00 68 28 96/51 91 03/16/17 16:00 97.4 F L 65 28 132/66 96 03/16/17 15:47 30 92 03/16/17 15:00 72 28 110/54 92 08/24/17 14:00 70 28 119/60 95 03/16/17 13:00 97.9 F 69 28 114/58 96 03/16/17 12:00 70 28 112/57 93 03/16/17 11:40 31 90 Intake and Output 03/16/17 03/17/17 03/17/17 23:59 07:59 15:59 Intake Total 1580 / 1580 630 / 630 1426 / 1426 Output Total 1172 / 1172 1463 / 1463 558 / 558 Balance 408 / 408 -833 / -833 868 / 868 Intake: IV Fluids 1580 / 1580 630 / 630 1396 / 1396 Calcium Chloride 4,000 MG 180 / 180 860 / 860 In 0.9 % Sodium Chloride 1,000 ML @ 40 mls/hr CRRT CONT [facility] Rx#: [id number] Vasostrict 40 UNIT In 102 / 102 Dextrose 5% 100 ML @ 0.04 UNIT/MIN 6.12 mls/hr IV .[id number] [facility] Rx#: [id number] PRECEDEX Premix 400 mcg 220 / 220 200 / 200 In 100 ml @ 0.2 MCG/KG/HR 8.18 mls/hr IVC .[id number] [facility] Rx#:[id number] FentaNYL (PF) 3,000 MCG 404 / 404 In 0.9 % Sodium Chloride 240 ML @ 50 MCG/HR 5 mls/ hr IVC [facility] Rx#: [id number] Versed 50 MG In 0.9 % 4 / 4 100 / 100 Sodium Chloride 90 ML @ 2 MG/HR 4 mls/hr IVC CONT [facility] Rx#:[id number] Levophed 8 MG In Dextrose 572 / 572 228 / 228 74 / 74 5% 250 ML @ 5 MCG/MIN 9. 67 mls/hr IVC CONT [facility] Rx #:[id number] Zithromax 500 mg In 252 / 252 Dextrose 5% 250 ML @ 252 mls/hr IVPB Q24H [facility] Rx#: [id number] Calcium Gluconate 1,000 110 / 110 MG In Dextrose 5% 100 ML @ 220 mls/hr IVPB ONCE PRN Rx#:[id number] Vancocin 500 MG In 100 / 100 Dextrose 5% (Minibag+) 100 ML 100 ML @ 100 mls/ hr IVPB ONCE ONE Rx#: [id number] Rocephin 1,000 MG In 100 / 100 Dextrose 5% (Minibag+) 100 ML 100 ML @ 200 mls/ hr IVPB DAILY@0600 [facility] Rx #:[id number] Oral 0 / 0 0 / 0 Tube Feeding 0 / 0 0 / 0 0 / 0 Free Water 30 / 30 Output: Stephani 377 / 377 378 / 378 273 / 273 Catheter 795 / 795 735 / 735 235 / 235 Gastric Drainage 350 / 350 50 / 50 Other: Weight 179.895 kg Blood Glucose* 137 172 125 Patient Weight 03/17/17 23:59 Weight 179.895 kg - Lab 03/17/17 03:15 03/17/17 03:15 Most recent lab results ABG pH 7.29 pH Units (7.32-7.45) L 03/17/17 04:13 ABG pCO2 50 mmHg (35-45) H 03/17/17 04:13 ABG pO2 212 mmHg (85-104) H 03/17/17 04:13 ABG HCO3 24.0 mEQ/L (21-27) 03/17/17 04:13 ABG O2 Saturation 100 % (95-98) H 03/17/17 04:13 Calcium 9.2 mg/dL (8.6-10.8) 03/17/17 03:15 Phosphorus 4.8 mg/dL (2.3-4.7) H 03/17/17 03:15 Magnesium 2.1 mg/dL (1.6-2.6) 03/17/17 03:15 Urine Creatinine 96 mg/dL 03/14/17 10:20 Urine Sodium < 20.0 mEq/L 03/14/17 10:20 Consult Discharge Plan - Plan Referrals: Cuca Carlos MD [Primary Care Provider] -
[2017-03-17 12:16] LABS: ABG Base Excess -1.6 mEq/L (-2.0 to 3.0); ABG HCO3 25.5 mEQ/L (21-27); ABG Oxygen Saturation 87 % (95-98); ABG PCO2 53 mmHg (35-45); ABG PH 7.29 pH Units (7.32-7.45); ABG PO2 59 mmHg (85-104); ABG TCO2 27.1 mEq/L (20-26)
[2017-03-17 12:17] LABS: Blood Gas FiO2 60 %
[2017-03-17] MEDS ORDERED: Lidocaine -MPF 1% 2 ML VIAL INFILT ONE (14:48)
--- NOTE | 2017-03-17 15:33 | Electrocardiograph Report ---
[address] [place] [address] Test Date: 2017-03-16 Pat Name: Ortiz Child Department: 109 Room: [facility] Gender: M [employer] Worker: SS : 1945 Requested By: Sharan Navarro Order Number: [id number] Reading MD: Ana M Ahn Measurements Intervals [place] Rate: 74 P: MN: 0 QRS: -22 QRSD: 102 T: -2 QT: 399 QTc: 427 Interpretive Statements ATRIAL FIBRILLATION BORDERLINE LEFT AXIS DEVIATION LOW QRS VOLTAGE IN PRECORDIAL LEADS Electronically Signed On 03-17-2017 15:32:02 EDT by Ana M Ahn
[2017-03-17 20:00] LABS: ABG Base Excess 0.8 mEq/L (-2.0 to 3.0); ABG Oxygen Saturation 89 % (95-98); ABG PCO2 57 mmHg (35-45); ABG PO2 63 mmHg (85-104); ABG TCO2 29.7 mEq/L (20-26)
[2017-03-17 20:01] LABS: Blood Gas FiO2 60 %
[2017-03-17] MEDS: ATRACURIUM IVC SCH (20:14)
[2017-03-17] MEDS: SODIUM CHLORIDE 0.9% IVC SCH (20:14)
[2017-03-17] MEDS: FentaNYL (PF) 3,000 MCG in 0.9 % Sodium Chloride 240 ML IVC SCH (20:45)
[2017-03-18] MEDS: Insulin LISPRO 300 UNITS/3 ML VIAL SQ SCH ×6 (00:22→20:50)
[2017-03-18] MEDS: PrismaSATE BGK 4/2.5 5,000 ML CRRT SCH ×9 (01:52→21:57)
[2017-03-18] MEDS: Ipratropium/Albuterol Neb 3 ML IH SCH ×6 (03:49→23:44)
[2017-03-18 04:36] LABS: Hematocrit 32.2 % (37.5-50.1); Hemoglobin 10.2 g/dL (12.9-16.9); Mean Corpuscular HGB Conc 31.7 g/dL (31.6-35.5); Mean Corpuscular Hemoglobin 30.4 pg (28.0-33.3); Mean Corpuscular Volume 95.8 fL (83.0-100.0); Platelet Count 142 K/mcL (140-400); Red Blood Count 3.36 M/mcL (4.19-5.50); Red Cell Distribution Width 15.4 % (11.5-14.5)
[2017-03-18 04:49] LABS: INR 1.2; Prothrombin Time 12.8 Seconds (9.4-12.1)
[2017-03-18 04:50] LABS: Phosphorous 2.6 mg/dL (2.3-4.7)
[2017-03-18 04:53] LABS: Alanine Aminotransferase 10 Units/L (0-55); Albumin/Globulin Ratio 0.5 (1.1-2.2); Alkaline Phosphatase 80 Units/L (38-126); Aspartate Amino Transferase 23 Units/L (5-34); BUN/Creatinine Ratio 30 (6-26); Bilirubin,Total 0.6 mg/dL (0.2-1.2); Calcium 10.5 mg/dL (8.6-10.8); Carbon Dioxide 27 mEq/L (19-29); Chloride 106 mEq/L (98-109); Globulin 4.1 g/dL (2.4-3.5); Glucose 114 mg/dL (70-99); Osmolality,Calculated 291 (280-300); Potassium 4.4 mEq/L (3.5-4.5); Sodium 138 mEq/L (136-145); eGFR For African Americans > 60 (> 60); eGFR For Non-African Americans > 60 (> 60)
[2017-03-18 04:55] LABS: Albumin 1.9 g/dL (3.5-5.0); Blood Urea Nitrogen 24 mg/dL (8-26); Ionized Calcium 1.39 mmol/L (1.15-1.35)
[2017-03-18 05:10] LABS: Lymphocytes # 3.1 K/mcL (0.6-4.6); Monocytes # 1.9 K/mcL (0.0-1.3); Neutrophils # 14.1 K/mcL (1.6-8.9); Platelet Estimate Normal (Normal)
[2017-03-18] MEDS ORDERED: Sodium Phosphate 30 MMOL in D5% in Water 100 ML IVPB PRN (05:26)
[2017-03-18] MEDS: Calcium Chloride 4,000 MG in 0.9 % Sodium Chloride 1,000 ML CRRT SCH ×2 (05:31→17:18)
[2017-03-18] MEDS: *HR* Heparin 5,000 UNIT/ML VIAL SQ SCH ×3 (05:32→20:33)
[2017-03-18] MEDS ORDERED: Vancomycin 2,000 MG in D5% in Water 500 ML IVPB ONE (06:00)
[2017-03-18 06:18] LABS: ABG Base Excess 2.4 mEq/L (-2.0 to 3.0); ABG HCO3 29.4 mEQ/L (21-27); ABG Oxygen Saturation 96 % (95-98); ABG PCO2 57 mmHg (35-45); ABG PH 7.32 pH Units (7.32-7.45); ABG PO2 89 mmHg (85-104); ABG TCO2 31.1 mEq/L (20-26); Blood Gas FiO2 60 %
[2017-03-18] MEDS ORDERED: Lactulose Oral Soln 20 GM/30 ML UDC PO ONE (07:33)
--- NOTE | 2017-03-18 07:43 | Pulmonology Progress Note ---
<Sharan Navarro W - Last Filed: 03/18/17 11:24> Date of Encounter: 03/18/17 Assessment and Plan (1) ARDS (adult respiratory distress syndrome) Current Visit: Yes Status: Acute (2) Tinea cruris Current Visit: No Status: Acute (3) LEMUEL (obstructive sleep apnea) Current Visit: No Status: Chronic (4) Pneumonia Current Visit: No Status: Acute Qualifiers: Pneumonia type: due to unspecified organism Laterality: unspecified laterality Lung location: unspecified part of lung Qualified Code(s): J18.9 - Pneumonia, unspecified organism (5) Acute renal failure Current Visit: No Status: Acute Qualifiers: Acute renal failure type: unspecified Qualified Code(s): N17.9 - Acute kidney failure, unspecified (6) Acute respiratory failure with hypoxia Current Visit: Yes Status: Acute (7) Sepsis associated hypotension Current Visit: Yes Status: Acute (8) DVT prophylaxis Current Visit: Yes Status: Acute (9) Metabolic acidosis Current Visit: Yes Status: Acute Objective PUL Vital signs: Last Vital Signs Temp 97.3 F L 03/18/17 04:00 Pulse 70 03/18/17 07:46 Resp 20 03/18/17 07:41 BP 135/46 03/18/17 07:41 Pulse Ox 95 03/18/17 07:41 Ventilator Settings Ventilator Settings: Ventilator Settings, Last 8 Hours Ventilator Mode VC+ Ventilator Mode VC+ Ventilator Mode VC+ Ventilator Mode VC+ Ventilator Mode VC+ Ventilator Mode VC+ Ventilator Mode VC+ Ventilator Mode VC+ Ventilator Mode VC+ Ventilator Mode VC+ Ventilator Mode VC+ Ventilator Mode VC+ Ventilator Tidal Volume 550 Setting Ventilator Tidal Volume 550 Setting Ventilator Tidal Volume 550 Setting Ventilator Tidal Volume 550 Setting Ventilator Tidal Volume 550 Setting Ventilator Tidal Volume 550 Setting Ventilator Tidal Volume 550 Setting Ventilator Tidal Volume 550 Setting Ventilator Tidal Volume 550 Setting Ventilator Tidal Volume 550 Setting Ventilator Tidal Volume 550 Setting Ventilator Tidal Volume 550 Setting Ventilator Respiratory Rate 18 Setting Ventilator Respiratory Rate 18 Setting Ventilator Respiratory Rate 18 Setting Ventilator Respiratory Rate 18 Setting Ventilator Respiratory Rate 18 Setting Ventilator Respiratory Rate 18 Setting Ventilator Respiratory Rate 18 Setting Ventilator Respiratory Rate 18 Setting Ventilator Respiratory Rate 18 Setting Ventilator Respiratory Rate 18 Setting Ventilator Respiratory Rate 18 Setting Ventilator Respiratory Rate 18 Setting Actual Respiratory Rate 20 Actual Respiratory Rate 18 Actual Respiratory Rate 18 Actual Respiratory Rate 18 Actual Respiratory Rate 18 Actual Respiratory Rate 18 Actual Respiratory Rate 18 Actual Respiratory Rate 18 Actual Respiratory Rate 18 Actual Respiratory Rate 19 Actual Respiratory Rate 19 Positive End Expiratory 12 Pressure Positive End Expiratory 12 Pressure Positive End Expiratory 12 Pressure Positive End Expiratory 12 Pressure Positive End Expiratory 12 Pressure Positive End Expiratory 12 Pressure Positive End Expiratory 12 Pressure Positive End Expiratory 12 Pressure Positive End Expiratory 12 Pressure Positive End Expiratory 12 Pressure Positive End Expiratory 12 Pressure Positive End Expiratory 12 Pressure Peak Inspiratory Airway 31 Pressure Peak Inspiratory Airway 37 Pressure Peak Inspiratory Airway 38 Pressure Peak Inspiratory Airway 38 Pressure Peak Inspiratory Airway 39 Pressure Peak Inspiratory Airway 38 Pressure Peak Inspiratory Airway 39 Pressure Peak Inspiratory Airway 40 Pressure Peak Inspiratory Airway 37 Pressure Peak Inspiratory Airway 35 Pressure Peak Inspiratory Airway 31 Pressure Results - Laboratory Findings CBC and BMP: 03/18/17 04:20 03/18/17 04:20 ABG ABG pH 7.32 pH Units (7.32-7.45) 03/18/17 06:07 ABG pCO2 57 mmHg (35-45) H 03/18/17 06:07 ABG pO2 89 mmHg (85-104) 03/18/17 06:07 ABG O2 Saturation 96 % (95-98) 03/18/17 06:07 PT/INR, D-dimer PT 12.8 Seconds (9.4-12.1) H 03/18/17 04:20 Abnormal lab findings: Abnormal lab results WBC 19.1 K/mcL (4.3-11.1) H 03/18/17 04:20 RBC 3.36 M/mcL (4.19-5.50) L 03/18/17 04:20 Hgb 10.2 g/dL (12.9-16.9) L 03/18/17 04:20 Hct 32.2 % (37.5-50.1) L 03/18/17 04:20 RDW 15.4 % (11.5-14.5) H 03/18/17 04:20 Immature Gran % 8.1 % (0-4) H 03/16/17 05:00 Band Neutrophils % 22.0 % (0-4) H 03/18/17 04:20 Neutrophils # 14.1 K/mcL (1.6-8.9) H 03/18/17 04:20 Monocytes # 1.9 K/mcL (0.0-1.3) H 03/18/17 04:20 Basophils # 0.4 K/mcL (0.0-0.2) H 03/17/17 03:15 Nucleated RBCs/100 WBC 0.3 /100 WBC (0) H 03/16/17 05:00 Reactive Lymphocytes Present (Not Present) A 03/15/17 03:41 Smudge Cells Present (Not Present) A 03/14/17 04:45 Toxic Granulation Present (Not Present) A 03/15/17 03:41 Large Platelets Present (Not Present) A 03/15/17 03:41 Polychromasia 1+ (Not Present) A 03/17/17 03:15 PT 12.8 Seconds (9.4-12.1) H 03/18/17 04:20 ABG pCO2 57 mmHg (35-45) H 03/18/17 06:07 ABG HCO3 29.4 mEQ/L (21-27) H 03/18/17 06:07 ABG Total CO2 31.1 mEq/L (20-26) H 03/18/17 06:07 BUN/Creatinine Ratio 30 (6-26) H 03/18/17 04:20 Glucose 114 mg/dL (70-99) H 03/18/17 04:20 POC Glucose 123 (58-89) H 03/17/17 23:44 Creatine Kinase 386 Units/L (30-200) H 03/16/17 05:58 Albumin 1.9 g/dL (3.5-5.0) L 03/18/17 04:20 Globulin 4.1 g/dL (2.4-3.5) H 03/18/17 04:20 Albumin/Globulin Ratio 0.5 (1.1-2.2) L 03/18/17 04:20 Lipase 313 Units/L (8-78) H 03/16/17 05:58 Urine Clarity Cloudy (Clear) A 03/13/17 16:00 Urine Bilirubin Small (Negative) H 03/13/17 16:00 Ur Leukocyte Esterase Small (Negative) H 03/13/17 16:00 Ur Squamous Epith Cells Many per lpf (None-Few) H 03/13/17 16:00 Ur Culture Indicated? YES (NO) A 03/13/17 16:00 - Microbiology Findings Microbiology Findings: Microbiology, Last 48 Hours 03/16/17 17:00 Sputum Culture - Preliminary Sputum - Clinical Findings Intake & Output: Intake & Output 03/17/17 03/18/17 03/18/17 23:59 07:59 15:59 Intake Total 1993.2 / 1992.2 1306.0 / 1306.0 Output Total 1700 / 1700 1168 / 1168 Balance 293.2 / 293.2 138.0 / 138.0 Weight 160.163 kg Consult Discharge Plan - Plan Referrals: Cuca Carlos MD [Primary Care Provider] - - Attending Attestation I examined this patient and my medical decision-making was reviewed with the Resident Physician. I agree with the documented findings, disposition and treatment plan as described except to the extent set forth below. We independently had [id number] contact with the patient Patient seen and examined at bedside Labs, radiology, chart personally reviewed. Management was reviewed during multidisciplinary critical care rounds. Neuropsych: Sedated on vent sedation holiday today. Wean off infusion of narcotic restart Precedex. We will focus on yazdanism of sleep-wake cycle. avoid sensory deprivation, and avoid BIT SHAVER depressant medications as able. Pulm: Acute hypoxic hypercarbic respiratory failure with refractory Hypoxemia s/ t to ARDS overall this is improving markedly down to 50% FiO2 holster to decrease PEEP today plan on volume removal through dialysis for noncardiogenic and cardiogenic edema also try diuresis Cards: He had evidence of distributive shock weaned off vasopressors now. History of heart failure with preserved ejection fraction with a significant component of cardiogenic and noncardiogenic pulmonary edema FEN-GI: enteral nutrition on hold because of high residuals likely secondary to ileus from critical illness and electrolyte abnormalities. PPI prophylaxis given. Continue Bowel regimen give dose lactulose today Renal: Acute kidney injury which is likely multifactorial he is requrring CRRT for oliguria with decline in creatine clearance. Nephrology following I will trial loop diuretic today his urine output continues to improve can likely be transitioned to intermittent hemodialysis later today or tomorrow ID: Severe sepsis with shock likely secondary to community acquired pneumonia improving leukocytosis but cultures remain negative he is being treated for CAP pathogens and possibility of MRSA pneumonia Heme/Onc: DVT prophylaxis given H&H stable and platelets are stable continue to monitor. Endo: Glucose Monitored and has been elevated after addition of steroids will increase corrective insulin scale. Integ/MSK: Skin Care per routine ICU Nursing Protocol to prevent ulcers. Wean stress dose hydrocortisone Lines: Left PICC line and Right temporary HD catheter; Right Arterial Line Dispo: We will remain in the ICU for ongoing ventilator management CODE: DNAR/DNI. Family updated at bedside <Red Valles - Last Filed: 03/18/17 12:10> Date of Encounter: 03/18/17 Time of Encounter: 07:43 Assessment and Plan (1) ARDS (adult respiratory distress syndrome) Current Visit: Yes Status: Acute Patient is currently intubated. He is no longer on the neuromuscular blockade. From a pulmonary standpoint, his condition is still tenuous but he is showing consistent daily improvement. This is a very serious condition, and we will continue monitoring him very closely daily and remain intubated. (2) Acute respiratory failure with hypoxia Current Visit: Yes Status: Acute See above (3) Pneumonia Current Visit: No Status: Acute He currently has a leukocytosis of 19.1. This has improved from yesterday. However, he is being treated with vancomycin and Rocephin. We will continue treatment for his pneumonia with the same antimicrobials. Qualifiers: Pneumonia type: due to unspecified organism Laterality: unspecified laterality Lung location: unspecified part of lung Qualified Code(s): J18.9 - Pneumonia, unspecified organism (4) Sepsis associated hypotension Current Visit: Yes Status: Acute Patient has a central line in his right femoral vein. He is currently on Levophed to maintain a map greater than 60. This patient is currently on Stephani and I believe this is why he continues to need to be on Levophed to maintain his blood pressure. I think once the Stephani stops, he will no longer need Levophed. Overall, the sepsis from his pneumonia has been treated appropriately and he is improving. (5) Acute kidney injury Current Visit: Yes Status: Acute Currently on Stephani which has corrected his acute kidney injury (6) DVT prophylaxis Current Visit: Yes Status: Acute 5000 units of heparin subcutaneous every 8 hours. I will monitor his PT, INR, APTT Subjective Principal diagnosis: ARDS Interval history: Patient had no events overnight. Unable to obtain history from patient due to deep sedation and being on the ventilator. Objective PUL Vital signs: Last Vital Signs Temp 97.3 F L 03/18/17 04:00 Pulse 70 03/18/17 07:00 Resp 18 03/18/17 07:00 BP 119/45 03/18/17 07:00 Pulse Ox 94 03/18/17 07:00 General appearance: other (Patient is deeply sedated on the ventilator.) Eyes: nonicteric ENT: oropharynx moist Neck: supple Auscultation: bilateral: rhonchi Cardiovascular: regular rate and rhythm Gastrointestinal: normoactive bowel sounds Integumentary: normal Extremities: no cyanosis, no clubbing, pink and warm, pulses normal ( ), edema (1+ pitting edema) unable to assess due to mental status (Intubated) Ventilator Settings Ventilator Settings: Ventilator Settings, Last 8 Hours Ventilator Mode VC+ Ventilator Mode VC+ Ventilator Mode VC+ Ventilator Mode VC+ Ventilator Mode VC+ Ventilator Mode VC+ Ventilator Mode VC+ Ventilator Mode VC+ Ventilator Mode VC+ Ventilator Mode VC+ Ventilator Mode VC+ Ventilator Mode VC+ Ventilator Tidal Volume 550 Setting Ventilator Tidal Volume 550 Setting Ventilator Tidal Volume 550 Setting Ventilator Tidal Volume 550 Setting Ventilator Tidal Volume 550 Setting Ventilator Tidal Volume 550 Setting Ventilator Tidal Volume 550 Setting Ventilator Tidal Volume 550 Setting Ventilator Tidal Volume 550 Setting Ventilator Tidal Volume 550 Setting Ventilator Tidal Volume 550 Setting Ventilator Tidal Volume 550 Setting Ventilator Respiratory Rate 18 Setting Ventilator Respiratory Rate 18 Setting Ventilator Respiratory Rate 18 Setting Ventilator Respiratory Rate 18 Setting Ventilator Respiratory Rate 18 Setting Ventilator Respiratory Rate 18 Setting Ventilator Respiratory Rate 18 Setting Ventilator Respiratory Rate 18 Setting Ventilator Respiratory Rate 18 Setting Ventilator Respiratory Rate 18 Setting Ventilator Respiratory Rate 18 Setting Ventilator Respiratory Rate 18 Setting Actual Respiratory Rate 18 Actual Respiratory Rate 18 Actual Respiratory Rate 18 Actual Respiratory Rate 18 Actual Respiratory Rate 18 Actual Respiratory Rate 18 Actual Respiratory Rate 18 Actual Respiratory Rate 18 Actual Respiratory Rate 19 Actual Respiratory Rate 19 Actual Respiratory Rate 19 Positive End Expiratory 12 Pressure Positive End Expiratory 12 Pressure Positive End Expiratory 12 Pressure Positive End Expiratory 12 Pressure Positive End Expiratory 12 Pressure Positive End Expiratory 12 Pressure Positive End Expiratory 12 Pressure Positive End Expiratory 12 Pressure Positive End Expiratory 12 Pressure Positive End Expiratory 12 Pressure Positive End Expiratory 12 Pressure Positive End Expiratory 12 Pressure Peak Inspiratory Airway 37 Pressure Peak Inspiratory Airway 38 Pressure Peak Inspiratory Airway 38 Pressure Peak Inspiratory Airway 39 Pressure Peak Inspiratory Airway 38 Pressure Peak Inspiratory Airway 39 Pressure Peak Inspiratory Airway 40 Pressure Peak Inspiratory Airway 37 Pressure Peak Inspiratory Airway 35 Pressure Peak Inspiratory Airway 31 Pressure Peak Inspiratory Airway 41 Pressure Results - Laboratory Findings CBC and BMP: 03/18/17 04:20 03/18/17 04:20 ABG ABG pH 7.32 pH Units (7.32-7.45) 03/18/17 06:07 ABG pCO2 57 mmHg (35-45) H 03/18/17 06:07 ABG pO2 89 mmHg (85-104) 03/18/17 06:07 ABG O2 Saturation 96 % (95-98) 03/18/17 06:07 PT/INR, D-dimer PT 12.8 Seconds (9.4-12.1) H 03/18/17 04:20 Abnormal lab findings: Abnormal lab results WBC 19.1 K/mcL (4.3-11.1) H 03/18/17 04:20 RBC 3.36 M/mcL (4.19-5.50) L 03/18/17 04:20 Hgb 10.2 g/dL (12.9-16.9) L 03/18/17 04:20 Hct 32.2 % (37.5-50.1) L 03/18/17 04:20 RDW 15.4 % (11.5-14.5) H 03/18/17 04:20 Immature Gran % 8.1 % (0-4) H 03/16/17 05:00 Band Neutrophils % 22.0 % (0-4) H 03/18/17 04:20 Neutrophils # 14.1 K/mcL (1.6-8.9) H 03/18/17 04:20 Monocytes # 1.9 K/mcL (0.0-1.3) H 03/18/17 04:20 Basophils # 0.4 K/mcL (0.0-0.2) H 03/17/17 03:15 Nucleated RBCs/100 WBC 0.3 /100 WBC (0) H 03/16/17 05:00 Reactive Lymphocytes Present (Not Present) A 03/15/17 03:41 Smudge Cells Present (Not Present) A 03/14/17 04:45 Toxic Granulation Present (Not Present) A 03/15/17 03:41 Large Platelets Present (Not Present) A 03/15/17 03:41 Polychromasia 1+ (Not Present) A 03/17/17 03:15 PT 12.8 Seconds (9.4-12.1) H 03/18/17 04:20 ABG pCO2 57 mmHg (35-45) H 03/18/17 06:07 ABG HCO3 29.4 mEQ/L (21-27) H 03/18/17 06:07 ABG Total CO2 31.1 mEq/L (20-26) H 03/18/17 06:07 BUN/Creatinine Ratio 30 (6-26) H 03/18/17 04:20 Glucose 114 mg/dL (70-99) H 03/18/17 04:20 POC Glucose 123 (58-89) H 03/17/17 23:44 Creatine Kinase 386 Units/L (30-200) H 03/16/17 05:58 Albumin 1.9 g/dL (3.5-5.0) L 03/18/17 04:20 Globulin 4.1 g/dL (2.4-3.5) H 03/18/17 04:20 Albumin/Globulin Ratio 0.5 (1.1-2.2) L 03/18/17 04:20 Lipase 313 Units/L (8-78) H 03/16/17 05:58 Urine Clarity Cloudy (Clear) A 03/13/17 16:00 Urine Bilirubin Small (Negative) H 03/13/17 16:00 Ur Leukocyte Esterase Small (Negative) H 03/13/17 16:00 Ur Squamous Epith Cells Many per lpf (None-Few) H 03/13/17 16:00 Ur Culture Indicated? YES (NO) A 03/13/17 16:00 - Microbiology Findings Microbiology Findings: Microbiology, Last 48 Hours 03/16/17 17:00 Sputum Culture - Preliminary Sputum - Clinical Findings Intake & Output: Intake & Output 03/17/17 03/17/17 03/18/17 15:59 23:59 07:59 Intake Total 1426 / 1426 1993.2 / 1992.2 1306.0 / 1306.0 Output Total 1643 / 1643 1700 / 1700 1168 / 1168 Balance -217 / -217 293.2 / 293.2 138.0 / 138.0 Weight 160.163 kg
[2017-03-18] MEDS: FentaNYL (PF) 3,000 MCG in 0.9 % Sodium Chloride 240 ML IVC SCH ×2 (07:55→15:16)
[2017-03-18] MEDS: Dexmedetomidine HCl 400 MCG/100 ML MLS IVC SCH ×5 (07:56→20:49)
[2017-03-18] MEDS: Vasopressin 40 UNIT in D5% in Water 100 ML IV SCH (08:12)
[2017-03-18] MEDS ORDERED: Furosemide 40 MG/4 ML VIAL IVP ONE ×2 (08:38→14:00)
--- NOTE | 2017-03-18 09:10 | Nephrology Progress Note ---
Date of Encounter: 03/18/17 Time of Encounter: 09:10 - Assessment and Plan (1) ARDS (adult respiratory distress syndrome) Current Visit: Yes Status: Acute Patient intubated. Continue vent support. Management per ICU team. (2) Acute kidney injury Current Visit: Yes Status: Acute Will continue CVVHDF for volume and clearance. Will titrate UF to net negative 50cc/hr as tolerated. Continue to follow a renal protective strategy Discussed with the ICU team. (3) Hyperkalemia Current Visit: Yes Status: Acute CVVHDF (4) Metabolic acidosis Current Visit: Yes Status: Acute CVVHDF. (5) Sepsis associated hypotension Current Visit: Yes Status: Acute Pressors have been weaned off. Management per primary team. Subjective Principal diagnosis: ARDS Interval history: Patient seen and evaluated. Patient is intubated and on CVVHD. Review of systems is unobtainable. Objective - Vital Signs Vital signs: Vital Signs Temp Pulse Resp BP Pulse Ox 03/18/17 08:00 97.8 F 97 20 166/55 95 03/18/17 07:46 70 03/18/17 07:41 20 135/46 95 03/18/17 07:00 70 18 119/45 94 03/18/17 06:00 73 18 123/44 95 03/18/17 05:52 18 142/52 97 03/18/17 05:00 73 18 128/47 99 03/18/17 04:00 97.3 F L 67 18 117/46 97 03/18/17 03:49 18 132/49 97 03/18/17 03:00 63 18 124/52 96 03/18/17 02:00 69 18 128/50 94 03/18/17 01:27 19 143/54 95 03/18/17 01:00 94 19 159/59 97 03/18/17 00:00 97.5 F L 80 18 174/80 94 03/17/17 23:41 18 150/61 95 03/17/17 23:00 64 18 141/58 95 03/17/17 22:00 70 19 140/57 95 03/17/17 21:45 18 142/56 94 03/17/17 21:00 64 18 138/57 94 03/17/17 20:00 97.8 F 64 18 127/58 91 03/17/17 19:55 21 137/60 94 03/17/17 19:00 64 21 126/59 94 03/17/17 18:00 78 19 106/48 93 03/17/17 17:00 67 18 113/55 94 03/17/17 16:00 53 18 111/58 100 03/17/17 15:51 18 105/57 94 03/17/17 15:00 97.8 F 63 19 105/55 93 03/17/17 14:00 61 19 100/52 94 03/17/17 13:00 66 19 102/53 94 03/17/17 12:00 68 18 127/60 93 03/17/17 11:56 98.3 F 03/17/17 11:44 18 126/62 100 03/17/17 11:00 71 20 119/57 92 03/17/17 10:00 72 19 116/58 95 03/17/17 09:11 20 119/55 96 Intake and Output 03/17/17 03/18/17 03/18/17 23:59 07:59 15:59 Intake Total 1306.0 / 1306.0 Output Total 1700 / 1700 1168 / 1168 214 / 214 Balance 293.2 / 293.2 138.0 / 138.0 -214 / -214 Intake: IV Fluids 1306.0 / 1306.0 Calcium Chloride 4,000 MG 1315.9 / 1315.9 786.8 / 786.8 In 0.9 % Sodium Chloride 1,000 ML @ 40 mls/hr CRRT CONT [facility] Rx#: [id number] PrismaSATE BGK 4/2.5 5, 0 / 0 000 ML @ 1250 mls/hr CRRT CONT [facility] Rx#:[id number] Vasostrict 40 UNIT In 72 / 72 Dextrose 5% 100 ML @ 0.04 UNIT/MIN 6.12 mls/hr IV .[id number] [facility] Rx#: [id number] PRECEDEX Premix 400 mcg 85 / 85 In 100 ml @ 0.2 MCG/KG/HR 8.18 mls/hr IVC .[id number] [facility] Rx#:[id number] FentaNYL (PF) 3,000 MCG 58.5 / 58.5 110.5 / 110.5 In 0.9 % Sodium Chloride 240 ML @ 50 MCG/HR 5 mls/ hr IVC CONT [facility] Rx#: [id number] Versed 50 MG In 0.9 % 23.4 / 23.4 40.7 / 40.7 Sodium Chloride 90 ML @ 2 MG/HR 4 mls/hr IVC CONT [facility] Rx#:[id number] Levophed 8 MG In Dextrose 213.6 / 213.6 7.6 / 7.6 5% 250 ML @ 5 MCG/MIN 9. 67 mls/hr IVC CONT [facility] Rx #:[id number] Calcium Gluconate 1,000 224.8 / 224.8 119.9 / 119.9 MG In Dextrose 5% 100 ML @ 220 mls/hr IVPB ONCE PRN Rx#:[id number] Sodium Phosphate 30 MMOL 6.5 / 6.5 In Dextrose 5% 100 ML @ 16 mls/hr IVPB Q12H PRN Rx#:[id number] Vancocin 2,000 MG In 134 / 134 Dextrose 5% 500 ML @ 250 mls/hr IVPB 0600 [facility] Rx#: [id number] Rocephin 1,000 MG In 100 / 100 Dextrose 5% (Minibag+) 100 ML 100 ML @ 200 mls/ hr IVPB DAILY@0600 [facility] Rx #:[id number] Tube Feeding 0 / 0 0 / 0 Output: Stephani 875 / 875 453 / 453 154 / 154 Catheter 775 / 775 665 / 665 60 / 60 Gastric Drainage 50 / 50 50 / 50 Other: Weight 160.163 kg Blood Glucose* 122 123 175 Patient Weight 03/18/17 23:59 Weight 160.163 kg - General Appearance General appearance: Present: well-developed, well-nourished, obese, sedated on ventilator, intubated Exam: CVVHD in place EENT: Present: ATNC Neck: Present: supple Respiratory: Present: course breath sounds Cardiology: Present: edema, regular rate, regular rhythm Dialysis Vascular Access: Venous Catheter Gastrointestinal: Present: no tenderness, obese Integumentary: Present: warm and dry - Lab 03/18/17 04:20 03/18/17 04:20 Most recent lab results ABG pH 7.32 pH Units (7.32-7.45) 03/18/17 06:07 ABG pCO2 57 mmHg (35-45) H 03/18/17 06:07 ABG pO2 89 mmHg (85-104) 03/18/17 06:07 ABG HCO3 29.4 mEQ/L (21-27) H 03/18/17 06:07 ABG O2 Saturation 96 % (95-98) 03/18/17 06:07 Calcium 10.5 mg/dL (8.6-10.8) 03/18/17 04:20 Phosphorus 2.6 mg/dL (2.3-4.7) 03/18/17 04:20 Magnesium 2.0 mg/dL (1.6-2.6) 03/18/17 04:20 Urine Creatinine 96 mg/dL 03/14/17 10:20 Urine Sodium < 20.0 mEq/L 03/14/17 10:20 Consult Discharge Plan - Plan Referrals: Cuca Carlos MD [Primary Care Provider] -
[2017-03-18] MEDS: Sennosides 8.6 MG TABLET PO SCH (09:30)
[2017-03-18] MEDS: Azithromycin 500 MG in D5% in Water 250 ML IVPB SCH (09:30)
[2017-03-18] MEDS: Chlorhexidine Rinse 15 ML MOUTHWASH MM SCH ×2 (09:30→20:33)
[2017-03-18] MEDS: Hydrocortisone Sodium Succ 100 MG/2 ML VIAL IVP SCH ×3 (09:31→20:33)
[2017-03-18] MEDS: Pantoprazole 40 MG VIAL IVP SCH (09:31)
[2017-03-18 14:04] LABS: BUN/Creatinine Ratio 25 (6-26); Blood Urea Nitrogen 21 mg/dL (8-26); Calcium 10.6 mg/dL (8.6-10.8); Carbon Dioxide 27 mEq/L (19-29); Chloride 103 mEq/L (98-109); Glucose 129 mg/dL (70-99); Osmolality,Calculated 289 (280-300); Potassium 3.7 mEq/L (3.5-4.5); Sodium 137 mEq/L (136-145); eGFR For African Americans > 60 (> 60); eGFR For Non-African Americans > 60 (> 60)
[2017-03-18] MEDS ORDERED: *HR* Heparin 5,000 UNIT/ML VIAL ONE ×4 (19:30→19:32)
[2017-03-18] MEDS: Norepinephrine 8 MG in D5% in Water 250 ML IVC SCH (20:24)
[2017-03-18] MEDS: ATRACURIUM IVC SCH (20:35)
[2017-03-18] MEDS: SODIUM CHLORIDE 0.9% IVC SCH (20:35)
[2017-03-19] MEDS: Insulin LISPRO 300 UNITS/3 ML VIAL SQ SCH ×7 (00:05→23:38)
[2017-03-19] MEDS: Vasopressin 40 UNIT in D5% in Water 100 ML IV SCH (00:05)
[2017-03-19] MEDS: Dexmedetomidine HCl 400 MCG/100 ML MLS IVC SCH ×6 (00:42→22:18)
[2017-03-19] MEDS: PrismaSATE BGK 4/2.5 5,000 ML CRRT SCH ×4 (02:10→15:31)
[2017-03-19] MEDS: Calcium Chloride 4,000 MG in 0.9 % Sodium Chloride 1,000 ML CRRT SCH ×2 (02:54→15:31)
[2017-03-19] MEDS: Ipratropium/Albuterol Neb 3 ML IH SCH ×6 (03:41→23:47)
[2017-03-19 03:58] LABS: Hematocrit 31.9 % (37.5-50.1); Hemoglobin 10.1 g/dL (12.9-16.9); Mean Corpuscular HGB Conc 31.7 g/dL (31.6-35.5); Mean Corpuscular Hemoglobin 29.9 pg (28.0-33.3); Mean Corpuscular Volume 94.4 fL (83.0-100.0); Mean Platelet Volume 10.6 fL (9.4-12.4); Platelet Count 147 K/mcL (140-400); Red Blood Count 3.38 M/mcL (4.19-5.50); Red Cell Distribution Width 15.1 % (11.5-14.5)
[2017-03-19 04:14] LABS: Alanine Aminotransferase 12 Units/L (0-55); Albumin/Globulin Ratio 0.5 (1.1-2.2); Alkaline Phosphatase 83 Units/L (38-126); Aspartate Amino Transferase 23 Units/L (5-34); BUN/Creatinine Ratio 22 (6-26); Bilirubin,Total 0.5 mg/dL (0.2-1.2); Blood Urea Nitrogen 17 mg/dL (8-26); Calcium 10.1 mg/dL (8.6-10.8); Carbon Dioxide 30 mEq/L (19-29); Chloride 104 mEq/L (98-109); Globulin 4.1 g/dL (2.4-3.5); Glucose 128 mg/dL (70-99); Magnesium 1.6 mg/dL (1.6-2.6); Osmolality,Calculated 295 (280-300); Phosphorous 2.3 mg/dL (2.3-4.7); Potassium 3.6 mEq/L (3.5-4.5); Sodium 141 mEq/L (136-145); Total Protein 6.1 g/dL (6.0-8.3); eGFR For African Americans > 60 (> 60); eGFR For Non-African Americans > 60 (> 60)
[2017-03-19 04:22] LABS: Eosinophils # 0.2 K/mcL (0.0-0.6); Hypersegmented Neutrophils Present (Not Present); Lymphocytes # 1.3 K/mcL (0.6-4.6); Monocytes # 0.4 K/mcL (0.0-1.3); Neutrophils # 16.2 K/mcL (1.6-8.9); Platelet Estimate Normal (Normal); Toxic Granulation Present (Not Present)
[2017-03-19 04:24] LABS: INR 1.4; Prothrombin Time 14.7 Seconds (9.4-12.1)
[2017-03-19 04:26] LABS: Activated Partial Thrombo Time 29.4 Seconds (26.0-36.0)
[2017-03-19 04:30] LABS: ABG Base Excess 7.7 mEq/L (-2.0 to 3.0); ABG HCO3 32.7 mEQ/L (21-27); ABG Oxygen Saturation 98 % (95-98); ABG PCO2 47 mmHg (35-45); ABG PH 7.45 pH Units (7.32-7.45); ABG PO2 98 mmHg (85-104); ABG TCO2 34.1 mEq/L (20-26)
[2017-03-19] MEDS: Magnesium Sulfate 2 GM in D5% in Water 100 ML IVPB PRN (05:21)
[2017-03-19] MEDS: *HR* Heparin 5,000 UNIT/ML VIAL SQ SCH ×3 (05:50→20:23)
[2017-03-19] MEDS ORDERED: Vancomycin 2,000 MG in D5% in Water 500 ML IVPB ONE (06:00)
[2017-03-19] MEDS ORDERED: Furosemide 40 MG/4 ML VIAL IVP ONE (06:57)
--- NOTE | 2017-03-19 07:05 | Pulmonology Progress Note ---
<Sharan Navarro W - Last Filed: 03/19/17 07:59> Date of Encounter: 03/19/17 Assessment and Plan (1) ARDS (adult respiratory distress syndrome) Current Visit: Yes Status: Acute (2) Tinea cruris Current Visit: No Status: Acute (3) LEMUEL (obstructive sleep apnea) Current Visit: No Status: Chronic (4) Pneumonia Current Visit: No Status: Acute Qualifiers: Pneumonia type: due to unspecified organism Laterality: unspecified laterality Lung location: unspecified part of lung Qualified Code(s): J18.9 - Pneumonia, unspecified organism (5) Acute renal failure Current Visit: No Status: Acute Qualifiers: Acute renal failure type: unspecified Qualified Code(s): N17.9 - Acute kidney failure, unspecified (6) Acute respiratory failure with hypoxia Current Visit: Yes Status: Acute (7) Sepsis associated hypotension Current Visit: Yes Status: Acute (8) DVT prophylaxis Current Visit: Yes Status: Acute (9) Metabolic acidosis Current Visit: Yes Status: Acute Objective PUL Vital signs: Last Vital Signs Temp 97.4 F L 03/19/17 04:00 Pulse 84 03/19/17 07:00 Resp 28 03/19/17 07:00 BP 137/61 03/19/17 07:00 Pulse Ox 94 03/19/17 07:00 Ventilator Settings Ventilator Settings: Ventilator Settings, Last 8 Hours Ventilator Mode VC+ Ventilator Mode VC+ Ventilator Mode VC+ Ventilator Mode VC+ Ventilator Mode VC+ Ventilator Mode VC+ Ventilator Mode VC+ Ventilator Mode VC+ Ventilator Mode VC+ Ventilator Mode VC+ Ventilator Mode VC+ Ventilator Mode VC+ Ventilator Mode VC+ Ventilator Tidal Volume 500 Setting Ventilator Tidal Volume 500 Setting Ventilator Tidal Volume 500 Setting Ventilator Tidal Volume 500 Setting Ventilator Tidal Volume 500 Setting Ventilator Tidal Volume 500 Setting Ventilator Tidal Volume 500 Setting Ventilator Tidal Volume 500 Setting Ventilator Tidal Volume 500 Setting Ventilator Tidal Volume 500 Setting Ventilator Tidal Volume 500 Setting Ventilator Tidal Volume 500 Setting Ventilator Tidal Volume 500 Setting Ventilator Respiratory Rate 18 Setting Ventilator Respiratory Rate 18 Setting Ventilator Respiratory Rate 18 Setting Ventilator Respiratory Rate 18 Setting Ventilator Respiratory Rate 18 Setting Ventilator Respiratory Rate 18 Setting Ventilator Respiratory Rate 18 Setting Ventilator Respiratory Rate 18 Setting Ventilator Respiratory Rate 18 Setting Ventilator Respiratory Rate 18 Setting Ventilator Respiratory Rate 18 Setting Ventilator Respiratory Rate 18 Setting Ventilator Respiratory Rate 18 Setting Actual Respiratory Rate 28 Actual Respiratory Rate 28 Actual Respiratory Rate 22 Actual Respiratory Rate 20 Actual Respiratory Rate 20 Actual Respiratory Rate 22 Actual Respiratory Rate 19 Actual Respiratory Rate 18 Actual Respiratory Rate 27 Actual Respiratory Rate 28 Actual Respiratory Rate 27 Actual Respiratory Rate 23 Positive End Expiratory 10 Pressure Positive End Expiratory 12 Pressure Positive End Expiratory 12 Pressure Positive End Expiratory 12 Pressure Positive End Expiratory 12 Pressure Positive End Expiratory 12 Pressure Positive End Expiratory 12 Pressure Positive End Expiratory 12 Pressure Positive End Expiratory 12 Pressure Positive End Expiratory 12 Pressure Positive End Expiratory 12 Pressure Positive End Expiratory 12 Pressure Positive End Expiratory 12 Pressure Peak Inspiratory Airway 35 Pressure Peak Inspiratory Airway 33 Pressure Peak Inspiratory Airway 34 Pressure Peak Inspiratory Airway 23 Pressure Peak Inspiratory Airway 22 Pressure Peak Inspiratory Airway 23 Pressure Peak Inspiratory Airway 17 Pressure Peak Inspiratory Airway 23 Pressure Peak Inspiratory Airway 26 Pressure Peak Inspiratory Airway 23 Pressure Peak Inspiratory Airway 23 Pressure Peak Inspiratory Airway 24 Pressure Results - Laboratory Findings CBC and BMP: 03/19/17 03:47 03/19/17 03:47 ABG ABG pH 7.45 pH Units (7.32-7.45) 03/19/17 04:19 ABG pCO2 47 mmHg (35-45) H 03/19/17 04:19 ABG pO2 98 mmHg (85-104) 03/19/17 04:19 ABG O2 Saturation 98 % (95-98) 03/19/17 04:19 PT/INR, D-dimer PT 14.7 Seconds (9.4-12.1) H 03/19/17 04:05 Abnormal lab findings: Abnormal lab results WBC 18.6 K/mcL (4.3-11.1) H 03/19/17 03:47 RBC 3.38 M/mcL (4.19-5.50) L 03/19/17 03:47 Hgb 10.1 g/dL (12.9-16.9) L 03/19/17 03:47 Hct 31.9 % (37.5-50.1) L 03/19/17 03:47 RDW 15.1 % (11.5-14.5) H 03/19/17 03:47 Immature Gran % 8.1 % (0-4) H 03/16/17 05:00 Band Neutrophils % 22.0 % (0-4) H 03/18/17 04:20 Myelocytes % 3.0 % (0) H 03/19/17 03:47 Neutrophils # 16.2 K/mcL (1.6-8.9) H 03/19/17 03:47 Basophils # 0.4 K/mcL (0.0-0.2) H 03/17/17 03:15 Nucleated RBCs/100 WBC 0.3 /100 WBC (0) H 03/16/17 05:00 Hypersegmented Neuts Present (Not Present) A 03/19/17 03:47 Reactive Lymphocytes Present (Not Present) A 03/15/17 03:41 Smudge Cells Present (Not Present) A 03/14/17 04:45 Toxic Granulation Present (Not Present) A 03/19/17 03:47 Large Platelets Present (Not Present) A 03/15/17 03:41 Polychromasia 1+ (Not Present) A 03/17/17 03:15 PT 14.7 Seconds (9.4-12.1) H 03/19/17 04:05 ABG pCO2 47 mmHg (35-45) H 03/19/17 04:19 ABG HCO3 32.7 mEQ/L (21-27) H 03/19/17 04:19 ABG Total CO2 34.1 mEq/L (20-26) H 03/19/17 04:19 ABG Base Excess 7.7 mEq/L (-2.0 to 3.0) H 03/19/17 04:19 Carbon Dioxide 30 mEq/L (19-29) H 03/19/17 03:47 Glucose 128 mg/dL (70-99) H 03/19/17 03:47 POC Glucose 138 (58-89) H 03/18/17 23:48 Creatine Kinase 386 Units/L (30-200) H 03/16/17 05:58 Albumin 2.0 g/dL (3.5-5.0) L 03/19/17 03:47 Globulin 4.1 g/dL (2.4-3.5) H 03/19/17 03:47 Albumin/Globulin Ratio 0.5 (1.1-2.2) L 03/19/17 03:47 Lipase 313 Units/L (8-78) H 03/16/17 05:58 Urine Clarity Cloudy (Clear) A 03/13/17 16:00 Urine Bilirubin Small (Negative) H 03/13/17 16:00 Ur Leukocyte Esterase Small (Negative) H 03/13/17 16:00 Ur Squamous Epith Cells Many per lpf (None-Few) H 03/13/17 16:00 Ur Culture Indicated? YES (NO) A 03/13/17 16:00 - Microbiology Findings Microbiology Findings: Microbiology, Last 48 Hours 03/16/17 17:00 Sputum Culture - Preliminary Sputum Yeast Species - Clinical Findings Intake & Output: Intake & Output 03/18/17 03/18/17 03/19/17 15:59 23:59 07:59 Intake Total 1631.1 / 1631.1 981.4 / 981.4 1116.1 / 1116.1 Output Total 2857 / 2857 2080 / 2080 1335 / 1335 Balance -1225.9 / -1225.9 -1098.6 / -1098.6 -218.9 / -218.9 Weight 159.211 kg Consult Discharge Plan - Plan Referrals: Cuca Carlos MD [Primary Care Provider] - - Attending Attestation I examined this patient and my medical decision-making was reviewed with the Resident Physician. I agree with the documented findings, disposition and treatment plan as described except to the extent set forth below. We independently had [id number] contact with the patient Patient seen and examined at bedside Labs, radiology, chart personally reviewed. Management was reviewed during multidisciplinary critical care rounds. Neuropsych: Patient remains sedated on vent when sedation is lifted he is confused and delirium is suspected he becomes significantly agitated requiring infusion of narcotic which we will attempt to stop or at least decrease as much as possible and cont Precedex. We will focus on zoroastrianism of sleep-wake cycle. avoid sensory deprivation, and avoid [employer] depressant medications as able. Pulm: Acute hypoxic hypercarbic respiratory failure with refractory Hypoxemia s/ t to ARDS overall this is improving markedly down to 50% FiO2 PEEP decreased to 10 ABG reassuring continue fluid by ultrafiltration as well as diuresis Cards: Distributive shock has resolved his been on vasopressor now for approximately 24 hours continue diuresis for cardiogenic and noncardiogenic pulmonary edema FEN-GI: Continues to have ileus without significant bowel movement and needs to have high residuals when enteral nutrition is attempted we will get a KUB today this is a combination of critical illness and narcotic confusion. PPI prophylaxis given Renal: Acute kidney injury which is likely multifactorial he is requrring . Excellent urine output sedated with loop diuretic likely we can switch continuous renal replacement to intermittent dialysis (or UF) as needed Heme/Onc: DVT prophylaxis given H&H stable and platelets are stable continue to monitor. Endo: Glucose Monitored and acceptable range continue corrective insulin scale we are weaning stress dose hydrocortisone Integ/MSK: Skin Care per routine ICU Nursing Protocol to prevent ulcers. Wean stress dose hydrocortisone Lines: Left PICC line and Right temporary HD catheter; Right Arterial Line ( remove today) Dispo: We will remain in the ICU for ongoing ventilator management CODE: DNAR/DNI. Family updated at bedside <Juvenal Goldsmith - Last Filed: 03/19/17 12:05> Date of Encounter: 03/19/17 Time of Encounter: 07:04 Assessment and Plan (1) Pneumonia Current Visit: No Status: Acute Qualifiers: Pneumonia type: due to unspecified organism Laterality: unspecified laterality Lung location: unspecified part of lung Qualified Code(s): J18.9 - Pneumonia, unspecified organism (2) Acute respiratory failure with hypoxia Current Visit: Yes Status: Acute (3) Sepsis associated hypotension Current Visit: Yes Status: Acute (4) Acute kidney injury Current Visit: Yes Status: Acute (5) DVT prophylaxis Current Visit: Yes Status: Acute (6) ARDS (adult respiratory distress syndrome) Current Visit: Yes Status: Acute Subjective Principal diagnosis: ARDS Interval history: Patient is currently sedated and intubated and on the ventilator. Therefore he was unable to communicate how things went overnight. It is my understanding that there were no reportable events. This morning he tried to turn down the sedation the patient became agitated, was fighting the vent and had at the station turned back up. Objective PUL Vital signs: Last Vital Signs Temp 97.4 F L 03/19/17 04:00 Pulse 84 03/19/17 07:00 Resp 28 03/19/17 07:00 BP 137/61 03/19/17 07:00 Pulse Ox 94 03/19/17 07:00 General appearance: other (Patient is sedated and intubated on the ventilator) Eyes: nonicteric ENT: oropharynx moist Neck: no JVD Effort: mildly labored Auscultation: bilateral: clear Cardiovascular: regular rate and rhythm Gastrointestinal: hypoactive bowel sounds Integumentary: normal Extremities: no cyanosis Musculoskeletal: no deformities other (Unable to assess due to the patient being sedated and intubated.) other (Unable to assess due to the patient being sedated and intubated.) Ventilator Settings Ventilator Settings: Ventilator Settings, Last 8 Hours Ventilator Mode VC+ Ventilator Mode VC+ Ventilator Mode VC+ Ventilator Mode VC+ Ventilator Mode VC+ Ventilator Mode VC+ Ventilator Mode VC+ Ventilator Mode VC+ Ventilator Mode VC+ Ventilator Mode VC+ Ventilator Mode VC+ Ventilator Mode VC+ Ventilator Mode VC+ Ventilator Tidal Volume 500 Setting Ventilator Tidal Volume 500 Setting Ventilator Tidal Volume 500 Setting Ventilator Tidal Volume 500 Setting Ventilator Tidal Volume 500 Setting Ventilator Tidal Volume 500 Setting Ventilator Tidal Volume 500 Setting Ventilator Tidal Volume 500 Setting Ventilator Tidal Volume 500 Setting Ventilator Tidal Volume 500 Setting Ventilator Tidal Volume 500 Setting Ventilator Tidal Volume 500 Setting Ventilator Tidal Volume 500 Setting Ventilator Respiratory Rate 18 Setting Ventilator Respiratory Rate 18 Setting Ventilator Respiratory Rate 18 Setting Ventilator Respiratory Rate 18 Setting Ventilator Respiratory Rate 18 Setting Ventilator Respiratory Rate 18 Setting Ventilator Respiratory Rate 18 Setting Ventilator Respiratory Rate 18 Setting Ventilator Respiratory Rate 18 Setting Ventilator Respiratory Rate 18 Setting Ventilator Respiratory Rate 18 Setting Ventilator Respiratory Rate 18 Setting Ventilator Respiratory Rate 18 Setting Actual Respiratory Rate 28 Actual Respiratory Rate 28 Actual Respiratory Rate 22 Actual Respiratory Rate 20 Actual Respiratory Rate 20 Actual Respiratory Rate 22 Actual Respiratory Rate 19 Actual Respiratory Rate 18 Actual Respiratory Rate 27 Actual Respiratory Rate 28 Actual Respiratory Rate 27 Actual Respiratory Rate 23 Positive End Expiratory 10 Pressure Positive End Expiratory 12 Pressure Positive End Expiratory 12 Pressure Positive End Expiratory 12 Pressure Positive End Expiratory 12 Pressure Positive End Expiratory 12 Pressure Positive End Expiratory 12 Pressure Positive End Expiratory 12 Pressure Positive End Expiratory 12 Pressure Positive End Expiratory 12 Pressure Positive End Expiratory 12 Pressure Positive End Expiratory 12 Pressure Positive End Expiratory 12 Pressure Peak Inspiratory Airway 35 Pressure Peak Inspiratory Airway 33 Pressure Peak Inspiratory Airway 34 Pressure Peak Inspiratory Airway 23 Pressure Peak Inspiratory Airway 22 Pressure Peak Inspiratory Airway 23 Pressure Peak Inspiratory Airway 17 Pressure Peak Inspiratory Airway 23 Pressure Peak Inspiratory Airway 26 Pressure Peak Inspiratory Airway 23 Pressure Peak Inspiratory Airway 23 Pressure Peak Inspiratory Airway 24 Pressure Results - Laboratory Findings CBC and BMP: 03/19/17 03:47 03/19/17 03:47 ABG ABG pH 7.45 pH Units (7.32-7.45) 03/19/17 04:19 ABG pCO2 47 mmHg (35-45) H 03/19/17 04:19 ABG pO2 98 mmHg (85-104) 03/19/17 04:19 ABG O2 Saturation 98 % (95-98) 03/19/17 04:19 PT/INR, D-dimer PT 14.7 Seconds (9.4-12.1) H 03/19/17 04:05 Abnormal lab findings: Abnormal lab results WBC 18.6 K/mcL (4.3-11.1) H 03/19/17 03:47 RBC 3.38 M/mcL (4.19-5.50) L 03/19/17 03:47 Hgb 10.1 g/dL (12.9-16.9) L 03/19/17 03:47 Hct 31.9 % (37.5-50.1) L 03/19/17 03:47 RDW 15.1 % (11.5-14.5) H 03/19/17 03:47 Immature Gran % 8.1 % (0-4) H 03/16/17 05:00 Band Neutrophils % 22.0 % (0-4) H 03/18/17 04:20 Myelocytes % 3.0 % (0) H 03/19/17 03:47 Neutrophils # 16.2 K/mcL (1.6-8.9) H 03/19/17 03:47 Basophils # 0.4 K/mcL (0.0-0.2) H 03/17/17 03:15 Nucleated RBCs/100 WBC 0.3 /100 WBC (0) H 03/16/17 05:00 Hypersegmented Neuts Present (Not Present) A 03/19/17 03:47 Reactive Lymphocytes Present (Not Present) A 03/15/17 03:41 Smudge Cells Present (Not Present) A 03/14/17 04:45 Toxic Granulation Present (Not Present) A 03/19/17 03:47 Large Platelets Present (Not Present) A 03/15/17 03:41 Polychromasia 1+ (Not Present) A 03/17/17 03:15 PT 14.7 Seconds (9.4-12.1) H 03/19/17 04:05 ABG pCO2 47 mmHg (35-45) H 03/19/17 04:19 ABG HCO3 32.7 mEQ/L (21-27) H 03/19/17 04:19 ABG Total CO2 34.1 mEq/L (20-26) H 03/19/17 04:19 ABG Base Excess 7.7 mEq/L (-2.0 to 3.0) H 03/19/17 04:19 Carbon Dioxide 30 mEq/L (19-29) H 03/19/17 03:47 Glucose 128 mg/dL (70-99) H 03/19/17 03:47 POC Glucose 138 (58-89) H 03/18/17 23:48 Creatine Kinase 386 Units/L (30-200) H 03/16/17 05:58 Albumin 2.0 g/dL (3.5-5.0) L 03/19/17 03:47 Globulin 4.1 g/dL (2.4-3.5) H 03/19/17 03:47 Albumin/Globulin Ratio 0.5 (1.1-2.2) L 03/19/17 03:47 Lipase 313 Units/L (8-78) H 03/16/17 05:58 Urine Clarity Cloudy (Clear) A 03/13/17 16:00 Urine Bilirubin Small (Negative) H 03/13/17 16:00 Ur Leukocyte Esterase Small (Negative) H 03/13/17 16:00 Ur Squamous Epith Cells Many per lpf (None-Few) H 03/13/17 16:00 Ur Culture Indicated? YES (NO) A 03/13/17 16:00 - Microbiology Findings Microbiology Findings: Microbiology, Last 48 Hours 03/16/17 17:00 Sputum Culture - Preliminary Sputum Yeast Species - Clinical Findings Intake & Output: Intake & Output 03/18/17 03/18/17 03/19/17 15:59 23:59 07:59 Intake Total 1631.1 / 1631.1 981.4 / 981.4 1116.1 / 1116.1 Output Total 2857 / 2857 2080 / 2080 1335 / 1335 Balance -1225.9 / -1225.9 -1098.6 / -1098.6 -218.9 / -218.9 Weight 159.211 kg Impression Assessment and plan: Was not able to enter normal assessment and plan due to issues with [employer] #1. ARDS Patient is currently sedated, intubated and on a ventilator. Patient is currently on fentanyl and Precedex for sedation. Patient has been improving but this is a very serious condition and we will continue to monitor him closely. At this time the patient will remain intubated and we will continue to follow. #2 acute respiratory failure with hypoxia The patient is currently sedated, intubated and on a ventilator. We will continue to monitor this patient. #3 pneumonia Patient is currently on vancomycin and Rocephin. We will continue with current antimicrobials. Current white blood cell count is 18.6. We will continue to monitor the patient #4 sepsis associated with hypotension. Patient's current pressure was 158/62. Patient is no longer on Levophed. Patient has been on Stephani. Patient is currently being treated with vancomycin and ceftriaxone. We will continue with current antimicrobial therapy. #5 acute kidney injury Patient is currently on Stephani. Current creatinine is 0.78. Nephrology has been consult and is following this patient. #6 DVT prophylaxis Patient is currently being 5000 units of subcutaneous heparin every 8 hours.
[2017-03-19] MEDS: Chlorhexidine Rinse 15 ML MOUTHWASH MM SCH ×2 (08:12→20:22)
[2017-03-19] MEDS: Hydrocortisone Sodium Succ 100 MG/2 ML VIAL IVP SCH ×3 (08:12→20:22)
[2017-03-19] MEDS: Pantoprazole 40 MG VIAL IVP SCH (08:12)
--- NOTE | 2017-03-19 08:29 | Nephrology Progress Note ---
Date of Encounter: 03/19/17 Time of Encounter: 08: - Assessment and Plan (1) ARDS (adult respiratory distress syndrome) Current Visit: Yes Status: Acute Patient intubated. Continue vent support. Management per ICU team. (2) Acute kidney injury Current Visit: Yes Status: Acute Will continue CVVHDF for volume and clearance. Keep UF at net 0. Patient appears to be euvolemic with a a stable blood pressure, no edema and decreased PEEP on vent. Ok to discontinue CVVHDF at the end of shift or if filter clots. Will evaluate for the need for iHD Monday. Continue to follow a renal protective strategy. Nonoliguric urine output. Discussed with the ICU team. (3) Hyperkalemia Current Visit: Yes Status: Acute CVVHDF (4) Metabolic acidosis Current Visit: Yes Status: Acute CVVHDF. (5) Sepsis associated hypotension Current Visit: Yes Status: Acute Pressors have been weaned off. Management per primary team. Subjective Principal diagnosis: ARDS Interval history: Patient seen and evaluated. Patient is intubated and on CVVHD. Review of systems is unobtainable. Objective - Vital Signs Vital signs: Vital Signs Temp Pulse Resp BP Pulse Ox 03/19/17 08:00 98.6 F 66 28 86/43 94 03/19/17 07:59 61 03/19/17 07:00 84 28 137/61 94 03/19/17 06:00 83 28 135/62 95 03/19/17 05:45 22 131/62 96 03/19/17 05:00 64 22 93/45 94 03/19/17 04:00 97.4 F L 72 21 105/50 93 03/19/17 03:41 22 107/50 95 03/19/17 03:00 70 18 104/53 95 03/19/17 02:00 71 20 127/56 95 03/19/17 01:47 27 132/57 95 03/19/17 01:00 79 26 148/62 95 03/19/17 00:00 97.6 F 88 28 170/74 98 03/18/17 23:44 23 136/63 95 03/18/17 23:00 66 23 137/66 95 03/18/17 22:00 71 24 131/65 95 03/18/17 21:35 26 112/56 93 03/18/17 21:00 68 25 128/63 95 03/18/17 20:00 96.2 F L 74 24 134/65 98 03/18/17 19:51 20 167/84 99 03/18/17 19:00 81 23 154/76 93 03/18/17 18:00 72 23 163/84 93 03/18/17 17:05 23 114/64 93 03/18/17 17:00 67 23 127/69 93 03/18/17 16:00 70 22 89/49 93 03/18/17 15:05 25 144/72 90 03/18/17 15:00 99 22 166/66 93 03/18/17 14:00 82 22 142/60 93 03/18/17 13:00 86 89 155/69 90 03/18/17 12:03 74 22 119/51 93 03/18/17 11:08 96.7 F L 71 22 107/44 93 03/18/17 11:00 71 18 132/51 87 03/18/17 10:00 97.8 F 101 22 162/69 93 03/18/17 09:17 22 108/41 95 03/18/17 09:00 86 20 158/64 95 Intake and Output 03/18/17 03/19/17 03/19/17 23:59 07:59 15:59 Intake Total 981.4 / 981.4 1391.8 / 1391.8 100 / 100 Output Total 2079 / 2079 1335 / 1335 293 / 293 Balance -1098.6 / -1098.6 56.8 / 56.8 -193 / -193 Intake: IV Fluids 981.4 / 981.4 1391.8 / 1391.8 100 / 100 Calcium Chloride 4,000 MG 709 / 709 838.9 / 838.9 In 0.9 % Sodium Chloride 1,000 ML @ 40 mls/hr CRRT CONT [facility] Rx#: [id number] PrismaSATE BGK 4/2.5 5, 0 / 0 000 ML @ 1250 mls/hr CRRT CONT [facility] Rx#:[id number] PRECEDEX Premix 400 mcg 152 / 152 198.5 / 198.5 100 / 100 In 100 ml @ 0.2 MCG/KG/HR 8.18 mls/hr IVC .[id number] [facility] Rx#:[id number] FentaNYL (PF) 3,000 MCG 16.9 / 16.9 116.7 / 116.7 0 / 0 In 0.9 % Sodium Chloride 240 ML @ 50 MCG/HR 5 mls/ hr IVC CONT [facility] Rx#: [id number] Magnesium Sulfate 2 GM In 70.3 / 70.3 Dextrose 5% 100 ML @ 50 mls/hr IVPB Q6H PRN Rx#: [id number] Potassium Phosphate 44 62.0 / 62.0 MEQ In 0.9 % Sodium Chloride 250 ML @ 40 mls/ hr IVPB Q10H PRN Rx#: [id number] Sodium Phosphate 30 MMOL 103.5 / 103.5 In Dextrose 5% 100 ML @ 16 mls/hr IVPB Q12H PRN Rx#:[id number] Rocephin 1,000 MG In 105.4 / 105.4 Dextrose 5% (Minibag+) 100 ML 100 ML @ 200 mls/ hr IVPB DAILY@0600 [facility] Rx #:[id number] Tube Feeding 0 / 0 0 / 0 Output: Stephani 935 / 935 1020 / 1020 273 / 273 Catheter 1095 / 1095 215 / 215 20 / 20 Gastric Drainage 50 / 50 100 / 100 Other: Weight 159.211 kg Blood Glucose* 137 128 183 Patient Weight 03/19/17 23:59 Weight 159.211 kg - General Appearance General appearance: Present: well-developed, well-nourished, obese, sedated on ventilator, intubated EENT: Present: ATNC Neck: Present: supple Respiratory: Present: course breath sounds Cardiology: Present: no edema, regular rate, regular rhythm Dialysis Vascular Access: Venous Catheter Gastrointestinal: Present: normoactive bowel sounds, no tenderness Integumentary: Present: warm and dry Additional Comments: sedated Musculoskeletal: Present: no cyanosis - Lab 03/19/17 03:47 03/19/17 03:47 Most recent lab results ABG pH 7.45 pH Units (7.32-7.45) 03/19/17 04:19 ABG pCO2 47 mmHg (35-45) H 03/19/17 04:19 ABG pO2 98 mmHg (85-104) 03/19/17 04:19 ABG HCO3 32.7 mEQ/L (21-27) H 03/19/17 04:19 ABG O2 Saturation 98 % (95-98) 03/19/17 04:19 Calcium 10.1 mg/dL (8.6-10.8) 03/19/17 03:47 Phosphorus 2.3 mg/dL (2.3-4.7) 03/19/17 03:47 Magnesium 1.6 mg/dL (1.6-2.6) 03/19/17 03:47 Urine Creatinine 96 mg/dL 03/14/17 10:20 Urine Sodium < 20.0 mEq/L 03/14/17 10:20 Consult Discharge Plan - Plan Referrals: Cuca Carlos MD [Primary Care Provider] -
[2017-03-19] MEDS: FentaNYL (PF) 3,000 MCG in 0.9 % Sodium Chloride 240 ML IVC SCH ×3 (10:41→21:18)
[2017-03-19] MEDS: Sennosides 8.6 MG TABLET PO SCH (11:18)
[2017-03-19] MEDS: Lactulose Oral Soln 20 GM/30 ML UDC PO SCH ×2 (11:38→20:22)
[2017-03-19] MEDS: Calcium Gluconate 1,000 MG in D5% in Water 100 ML IVPB PRN (15:22)
[2017-03-19 22:35] LABS: Ionized Calcium 1.25 mmol/L (1.15-1.35)
[2017-03-19 22:44] LABS: BUN/Creatinine Ratio 25 (6-26); Blood Urea Nitrogen 23 mg/dL (8-26); Calcium 9.2 mg/dL (8.6-10.8); Carbon Dioxide 30 mEq/L (19-29); Chloride 103 mEq/L (98-109); Glucose 109 mg/dL (70-99); Magnesium 1.7 mg/dL (1.6-2.6); Osmolality,Calculated 296 (280-300); Potassium 3.9 mEq/L (3.5-4.5); Sodium 141 mEq/L (136-145); eGFR For African Americans > 60 (> 60); eGFR For Non-African Americans > 60 (> 60)
[2017-03-19 22:45] LABS: Phosphorous 4.6 mg/dL (2.3-4.7)
[2017-03-20] MEDS: Dexmedetomidine HCl 400 MCG/100 ML MLS IVC SCH ×4 (03:41→12:54)
[2017-03-20] MEDS: Magnesium Sulfate 2 GM in D5% in Water 100 ML IVPB PRN (03:42)
[2017-03-20 03:59] LABS: Hematocrit 33.6 % (37.5-50.1); Hemoglobin 10.6 g/dL (12.9-16.9); Mean Corpuscular HGB Conc 31.5 g/dL (31.6-35.5); Mean Corpuscular Hemoglobin 30.3 pg (28.0-33.3); Mean Platelet Volume 10.9 fL (9.4-12.4); Platelet Count 164 K/mcL (140-400); Red Cell Distribution Width 15.2 % (11.5-14.5)
[2017-03-20 04:07] LABS: INR 1.6; Prothrombin Time 17.5 Seconds (9.4-12.1)
[2017-03-20 04:09] LABS: Activated Partial Thrombo Time 31.1 Seconds (26.0-36.0)
[2017-03-20 04:14] LABS: Alanine Aminotransferase 18 Units/L (0-55); Albumin 2.2 g/dL (3.5-5.0); Albumin/Globulin Ratio 0.5 (1.1-2.2); Alkaline Phosphatase 90 Units/L (38-126); Aspartate Amino Transferase 30 Units/L (5-34); BUN/Creatinine Ratio 25 (6-26); Bilirubin,Total 0.7 mg/dL (0.2-1.2); Blood Urea Nitrogen 26 mg/dL (8-26); Calcium 9.6 mg/dL (8.6-10.8); Carbon Dioxide 31 mEq/L (19-29); Chloride 102 mEq/L (98-109); Globulin 4.2 g/dL (2.4-3.5); Glucose 96 mg/dL (70-99); Magnesium 1.7 mg/dL (1.6-2.6); Osmolality,Calculated 299 (280-300); Potassium 3.9 mEq/L (3.5-4.5); Sodium 142 mEq/L (136-145); Total Protein 6.4 g/dL (6.0-8.3); eGFR For African Americans > 60 (> 60); eGFR For Non-African Americans > 60 (> 60)
[2017-03-20 04:25] LABS: Anisocytosis 1+ (Not Present); Eosinophils # 0.4 K/mcL (0.0-0.6); Lymphocytes # 1.3 K/mcL (0.6-4.6); Monocytes # 1.3 K/mcL (0.0-1.3); Platelet Estimate Normal (Normal)
[2017-03-20 04:26] LABS: Toxic Granulation Present (Not Present)
[2017-03-20] MEDS: Ipratropium/Albuterol Neb 3 ML IH SCH ×6 (04:28→23:29)
[2017-03-20 04:39] LABS: ABG Base Excess 6.4 mEq/L (-2.0 to 3.0); ABG HCO3 32.7 mEQ/L (21-27); ABG Oxygen Saturation 93 % (95-98); ABG PCO2 54 mmHg (35-45); ABG PH 7.39 pH Units (7.32-7.45); ABG PO2 68 mmHg (85-104); ABG TCO2 34.4 mEq/L (20-26); Blood Gas Liter Flow 50 L/MIN
[2017-03-20] MEDS: Insulin LISPRO 300 UNITS/3 ML VIAL SQ SCH ×5 (05:32→21:48)
[2017-03-20] MEDS: *HR* Heparin 5,000 UNIT/ML VIAL SQ SCH ×3 (05:32→20:11)
[2017-03-20] MEDS: SODIUM CHLORIDE 0.9% IVC SCH ×2 (06:35→15:45)
[2017-03-20] MEDS: Norepinephrine 8 MG in D5% in Water 250 ML IVC SCH ×2 (06:35→15:45)
[2017-03-20] MEDS: Vasopressin 40 UNIT in D5% in Water 100 ML IV SCH ×2 (06:35→07:46)
[2017-03-20] MEDS: ATRACURIUM IVC SCH ×2 (06:35→15:45)
[2017-03-20] MEDS: FentaNYL (PF) 3,000 MCG in 0.9 % Sodium Chloride 240 ML IVC SCH ×2 (06:36→09:49)
[2017-03-20] MEDS: Pantoprazole 40 MG VIAL IVP SCH (07:45)
[2017-03-20] MEDS: Sennosides 8.6 MG TABLET PO SCH (07:45)
[2017-03-20] MEDS: Lactulose Oral Soln 20 GM/30 ML UDC PO SCH ×2 (07:45→20:11)
[2017-03-20] MEDS: Hydrocortisone Sodium Succ 100 MG/2 ML VIAL IVP SCH (07:45)
[2017-03-20] MEDS: Chlorhexidine Rinse 15 ML MOUTHWASH MM SCH ×2 (07:45→20:11)
[2017-03-20] MEDS: Calcium Chloride 4,000 MG in 0.9 % Sodium Chloride 1,000 ML CRRT SCH (07:46)
[2017-03-20] MEDS: PrismaSATE BGK 4/2.5 5,000 ML CRRT SCH ×2 (07:46)
--- NOTE | 2017-03-20 08:37 | Pulmonology Progress Note ---
Date of Encounter: 03/20/17 Time of Encounter: 07:35 Assessment and Plan (1) Acute respiratory failure with hypoxia Current Visit: Yes Status: Acute Patient failed SBT. His PEEP lowered to 6. I will discuss with the family regarding possible need tracheostomy and also will consider palliative care consultation. Overall prognosis if continue like this, then it will be unfavorable. Critical care time 32 minutes. (2) Altered mental status, unspecified Current Visit: Yes Status: Acute He will need head CT, which was done and no evidence of acute abnormalities. This is most likely multifactorial from ICU delirium to side effect of medications as well as metabolic encephalopathy. We will try to avoid Percocet as much as possible. Qualifiers: Altered mental status type: unspecified Qualified Code(s): R41.82 - Altered mental status, unspecified (3) Acute kidney injury Current Visit: Yes Status: Resolved Nephrology has seen the patient. He still needs to have fluid removal. Subjective Principal diagnosis: ARDS Interval history: Patient failed spontaneous breathing trial and still have agitation when sedation is weaned off Objective PUL Vital signs: Last Vital Signs Temp 97.7 F 03/20/17 07:28 Pulse 68 03/20/17 08:00 Resp 21 03/20/17 08:00 BP 91/52 03/20/17 08:00 Pulse Ox 95 03/20/17 08:00 General appearance: no acute distress Eyes: nonicteric Neck: supple Effort: normal Auscultation: bilateral: rhonchi Percussion: bilateral: not dull Cardiovascular: regular rate and rhythm Gastrointestinal: hypoactive bowel sounds, soft Extremities: no cyanosis, edema unable to assess due to mental status Ventilator Settings Ventilator Settings: Ventilator Settings, Last 8 Hours Ventilator Mode VC+ Ventilator Mode VC+ Ventilator Mode VC+ Ventilator Mode VC+ Ventilator Mode VC+ Ventilator Mode VC+ Ventilator Mode VC+ Ventilator Mode VC+ Ventilator Mode VC+ Ventilator Mode VC+ Ventilator Mode VC+ Ventilator Mode VC+ Ventilator Tidal Volume 500 Setting Ventilator Tidal Volume 500 Setting Ventilator Tidal Volume 500 Setting Ventilator Tidal Volume 500 Setting Ventilator Tidal Volume 500 Setting Ventilator Tidal Volume 500 Setting Ventilator Tidal Volume 500 Setting Ventilator Tidal Volume 500 Setting Ventilator Tidal Volume 500 Setting Ventilator Tidal Volume 500 Setting Ventilator Tidal Volume 500 Setting Ventilator Tidal Volume 500 Setting Ventilator Respiratory Rate 18 Setting Ventilator Respiratory Rate 18 Setting Ventilator Respiratory Rate 18 Setting Ventilator Respiratory Rate 18 Setting Ventilator Respiratory Rate 18 Setting Ventilator Respiratory Rate 18 Setting Ventilator Respiratory Rate 18 Setting Ventilator Respiratory Rate 18 Setting Ventilator Respiratory Rate 18 Setting Ventilator Respiratory Rate 18 Setting Ventilator Respiratory Rate 18 Setting Ventilator Respiratory Rate 18 Setting Actual Respiratory Rate 21 Actual Respiratory Rate 19 Actual Respiratory Rate 19 Actual Respiratory Rate 19 Actual Respiratory Rate 23 Actual Respiratory Rate 23 Actual Respiratory Rate 23 Actual Respiratory Rate 23 Actual Respiratory Rate 23 Actual Respiratory Rate 19 Actual Respiratory Rate 18 Positive End Expiratory 6 Pressure Positive End Expiratory 8 Pressure Positive End Expiratory 8 Pressure Positive End Expiratory 8 Pressure Positive End Expiratory 8 Pressure Positive End Expiratory 8 Pressure Positive End Expiratory 8 Pressure Positive End Expiratory 8 Pressure Positive End Expiratory 8 Pressure Positive End Expiratory 8 Pressure Positive End Expiratory 8 Pressure Positive End Expiratory 8 Pressure Peak Inspiratory Airway 33 Pressure Peak Inspiratory Airway 32 Pressure Peak Inspiratory Airway 33 Pressure Peak Inspiratory Airway 33 Pressure Peak Inspiratory Airway 21 Pressure Peak Inspiratory Airway 21 Pressure Peak Inspiratory Airway 21 Pressure Peak Inspiratory Airway 37 Pressure Peak Inspiratory Airway 37 Pressure Peak Inspiratory Airway 35 Pressure Peak Inspiratory Airway 35 Pressure Results - Laboratory Findings CBC and BMP: 03/20/17 03:40 03/20/17 03:40 ABG ABG pH 7.39 pH Units (7.32-7.45) 03/20/17 04:12 ABG pCO2 54 mmHg (35-45) H 03/20/17 04:12 ABG pO2 68 mmHg (85-104) L 03/20/17 04:12 ABG O2 Saturation 93 % (95-98) L 03/20/17 04:12 PT/INR, D-dimer PT 17.5 Seconds (9.4-12.1) H 03/20/17 03:40 Abnormal lab findings: Abnormal lab results WBC 20.9 K/mcL (4.3-11.1) H 03/20/17 03:40 RBC 3.50 M/mcL (4.19-5.50) L 03/20/17 03:40 Hgb 10.6 g/dL (12.9-16.9) L 03/20/17 03:40 Hct 33.6 % (37.5-50.1) L 03/20/17 03:40 MCHC 31.5 g/dL (31.6-35.5) L 03/20/17 03:40 RDW 15.2 % (11.5-14.5) H 03/20/17 03:40 Immature Gran % 8.1 % (0-4) H 03/16/17 05:00 Band Neutrophils % 22.0 % (0-4) H 03/18/17 04:20 Myelocytes % 3.0 % (0) H 03/19/17 03:47 Neutrophils # 18.0 K/mcL (1.6-8.9) H 03/20/17 03:40 Basophils # 0.4 K/mcL (0.0-0.2) H 03/17/17 03:15 Nucleated RBCs/100 WBC 0.3 /100 WBC (0) H 03/16/17 05:00 Hypersegmented Neuts Present (Not Present) A 03/19/17 03:47 Reactive Lymphocytes Present (Not Present) A 03/15/17 03:41 Smudge Cells Present (Not Present) A 03/14/17 04:45 Toxic Granulation Present (Not Present) A 03/20/17 03:40 Large Platelets Present (Not Present) A 03/15/17 03:41 Polychromasia 1+ (Not Present) A 03/17/17 03:15 Anisocytosis 1+ (Not Present) A 03/20/17 03:40 PT 17.5 Seconds (9.4-12.1) H 03/20/17 03:40 ABG pCO2 54 mmHg (35-45) H 03/20/17 04:12 ABG pO2 68 mmHg (85-104) L 03/20/17 04:12 ABG HCO3 32.7 mEQ/L (21-27) H 03/20/17 04:12 ABG Total CO2 34.4 mEq/L (20-26) H 03/20/17 04:12 ABG O2 Saturation 93 % (95-98) L 03/20/17 04:12 ABG Base Excess 6.4 mEq/L (-2.0 to 3.0) H 03/20/17 04:12 Carbon Dioxide 31 mEq/L (19-29) H 03/20/17 03:40 POC Glucose 107 (58-89) H 03/19/17 23:36 Creatine Kinase 386 Units/L (30-200) H 03/16/17 05:58 Albumin 2.2 g/dL (3.5-5.0) L 03/20/17 03:40 Globulin 4.2 g/dL (2.4-3.5) H 03/20/17 03:40 Albumin/Globulin Ratio 0.5 (1.1-2.2) L 03/20/17 03:40 Lipase 313 Units/L (8-78) H 03/16/17 05:58 Urine Clarity Cloudy (Clear) A 03/13/17 16:00 Urine Bilirubin Small (Negative) H 03/13/17 16:00 Ur Leukocyte Esterase Small (Negative) H 03/13/17 16:00 Ur Squamous Epith Cells Many per lpf (None-Few) H 03/13/17 16:00 Ur Culture Indicated? YES (NO) A 03/13/17 16:00 Vancomycin Trough 20.6 mcg/mL (10-20) H* 03/20/17 03:40 - Microbiology Findings Microbiology Findings: Microbiology, Last 48 Hours 03/16/17 17:00 Sputum Culture - Final Sputum Mary Kate albicans - Clinical Findings Intake & Output: Intake & Output 03/19/17 03/20/17 03/20/17 23:59 07:59 15:59 Intake Total 681.7 / 681.7 774 / 774 Output Total 355 / 355 250 / 250 Balance 326.7 / 326.7 524 / 524 Weight 160.708 kg Consult Discharge Plan - Plan Referrals: Cuca Carlos MD [Primary Care Provider] -
[2017-03-20] MEDS ORDERED: Aminoglycoside Consult 1 EACH MC ONE (09:15)
--- NOTE | 2017-03-20 09:19 | Nephrology Progress Note ---
Date of Encounter: 03/20/17 Time of Encounter: 09: - Assessment and Plan (1) ARDS (adult respiratory distress syndrome) Current Visit: Yes Status: Acute Patient intubated. Continue vent support. Management per ICU team. (2) Acute kidney injury Current Visit: Yes Status: Acute CVVHDF discontinued 03/19/17. Will perform iHD as needed. No need for iHD today. Continue to follow a renal protective strategy. Nonoliguric urine output. (3) Hyperkalemia Current Visit: Yes Status: Acute iHD as needed. (4) Metabolic acidosis Current Visit: Yes Status: Acute iHD as needed. (5) Sepsis associated hypotension Current Visit: Yes Status: Acute Pressors have been weaned off. Management per primary team. (6) Anemia Current Visit: Yes Status: Acute Hemoglobin stable. Monitor for bleeding. Transfuse as needed. Qualifiers: Qualified Code(s): D64.9 - Anemia, unspecified Subjective Principal diagnosis: ARDS Interval history: Patient seen and evaluated. Patient is intubated and off CVVHD. Review of systems is unobtainable. Objective - Vital Signs Vital signs: Vital Signs Temp Pulse Resp BP Pulse Ox 03/20/17 09:00 70 25 96/52 94 03/20/17 08:00 68 21 91/52 95 03/20/17 07:55 19 95/50 92 03/20/17 07:30 72 03/20/17 07:28 97.7 F 03/20/17 06:06 19 95/50 98 03/20/17 06:00 71 26 95/53 98 03/20/17 05:00 83 22 111/60 100 03/20/17 04:43 98.6 F 03/20/17 04:30 23 134/80 93 03/20/17 04:00 98.6 F 85 23 134/80 93 03/20/17 03:00 68 22 129/45 98 03/20/17 02:43 23 131/73 96 03/20/17 02:00 61 19 119/66 96 03/20/17 01:00 63 18 129/63 94 03/20/17 00:00 60 18 114/55 93 03/19/17 23:59 98 F 03/19/17 23:50 18 121/75 94 03/19/17 23:00 63 21 111/60 94 03/19/17 22:51 21 120/53 94 03/19/17 22:29 62 03/19/17 22:00 62 21 113/56 93 03/19/17 21:00 113 23 182/93 100 03/19/17 20:00 98.9 F 75 18 111/71 94 03/19/17 19:45 18 99/60 95 03/19/17 19:00 75 20 94 03/19/17 18:00 105 29 150/98 97 03/19/17 17:34 29 109/60 97 03/19/17 17:00 105 29 154/99 97 03/19/17 16:11 98.4 F 03/19/17 16:00 62 22 109/60 94 03/19/17 15:29 75 03/19/17 15:13 22 140/72 94 03/19/17 15:00 73 31 140/72 97 03/19/17 14:00 31 158/111 97 03/19/17 13:31 31 168/101 97 03/19/17 13:10 19 168/101 95 03/19/17 13:00 73 31 146/76 97 03/19/17 12:00 64 28 168/101 94 03/19/17 11:43 86 03/19/17 11:12 18 168/101 99 03/19/17 11:00 97.7 F 124 28 158/62 94 03/19/17 10:00 124 28 152/93 94 Intake and Output 03/19/17 03/20/17 03/20/17 23:59 07:59 15:59 Intake Total 681.7 / 681.7 774 / 774 Output Total 355 / 355 250 / 250 Balance 326.7 / 326.7 524 / 524 Intake: IV Fluids 681.7 / 681.7 774 / 774 PRECEDEX Premix 400 mcg 100 / 100 200 / 200 In 100 ml @ 0.2 MCG/KG/HR 8.18 mls/hr IVC .[id number] [facility] Rx#:[id number] FentaNYL (PF) 3,000 MCG 240 / 240 235 / 235 0 / 0 In 0.9 % Sodium Chloride 240 ML @ 50 MCG/HR 5 mls/ hr IVC CONT [facility] Rx#: [id number] Versed 50 MG In 0.9 % 0 / 0 135 / 135 Sodium Chloride 90 ML @ 2 MG/HR 4 mls/hr IVC CONT [facility] Rx#:[id number] Calcium Gluconate 1,000 110 / 110 MG In Dextrose 5% 100 ML @ 220 mls/hr IVPB ONCE PRN Rx#:[id number] Magnesium Sulfate 2 GM In 33.7 / 33.7 104 / 104 Dextrose 5% 100 ML @ 50 mls/hr IVPB Q6H PRN Rx#: [id number] Potassium Phosphate 44 198 / 198 MEQ In 0.9 % Sodium Chloride 250 ML @ 40 mls/ hr IVPB Q10H PRN Rx#: [id number] Rocephin 1,000 MG In 100 / 100 Dextrose 5% (Minibag+) 100 ML 100 ML @ 200 mls/ hr IVPB DAILY@0600 [facility] Rx #:[id number] Output: Catheter 355 / 355 250 / 250 Other: Weight 160.708 kg Blood Glucose* 107 89 - General Appearance General appearance: Present: well-developed, well-nourished, obese EENT: Present: ATNC Neck: Present: supple Respiratory: Present: course breath sounds Cardiology: Present: no edema, regular rate, regular rhythm Dialysis Vascular Access: Venous Catheter Gastrointestinal: Present: no tenderness, obese Integumentary: Present: warm and dry Additional Comments: Sedated. Musculoskeletal: Present: no cyanosis Psychiatric: Present: mood/affect appropriate - Lab 03/20/17 03:40 03/20/17 03:40 Most recent lab results ABG pH 7.39 pH Units (7.32-7.45) 03/20/17 04:12 ABG pCO2 54 mmHg (35-45) H 03/20/17 04:12 ABG pO2 68 mmHg (85-104) L 03/20/17 04:12 ABG HCO3 32.7 mEQ/L (21-27) H 03/20/17 04:12 ABG O2 Saturation 93 % (95-98) L 03/20/17 04:12 Calcium 9.6 mg/dL (8.6-10.8) 03/20/17 03:40 Phosphorus 4.6 mg/dL (2.3-4.7) D 03/19/17 22:00 Magnesium 1.7 mg/dL (1.6-2.6) 03/20/17 03:40 Urine Creatinine 96 mg/dL 03/14/17 10:20 Urine Sodium < 20.0 mEq/L 03/14/17 10:20 Consult Discharge Plan - Plan Referrals: Cuca Carlos MD [Primary Care Provider] -
[2017-03-21] MEDS: Insulin LISPRO 300 UNITS/3 ML VIAL SQ SCH ×6 (00:23→19:21)
[2017-03-21] MEDS: *HR* Dextrose 50 % in Water (Syg) 50 ML SYRINGE IVP PRN ×8 (00:27→23:15)
[2017-03-21] MEDS: FentaNYL (PF) 3,000 MCG in 0.9 % Sodium Chloride 240 ML IVC SCH ×2 (04:09→19:19)
[2017-03-21] MEDS: Ipratropium/Albuterol Neb 3 ML IH SCH ×6 (04:13→23:22)
[2017-03-21 04:35] LABS: Hematocrit 34.4 % (37.5-50.1); Hemoglobin 10.6 g/dL (12.9-16.9); Mean Corpuscular HGB Conc 30.8 g/dL (31.6-35.5); Mean Corpuscular Volume 97.5 fL (83.0-100.0); Mean Platelet Volume 11.2 fL (9.4-12.4); Platelet Count 175 K/mcL (140-400); Red Blood Count 3.53 M/mcL (4.19-5.50); Red Cell Distribution Width 15.7 % (11.5-14.5)
[2017-03-21 04:59] LABS: Alanine Aminotransferase 25 Units/L (0-55); Albumin 2.1 g/dL (3.5-5.0); Albumin/Globulin Ratio 0.5 (1.1-2.2); Alkaline Phosphatase 89 Units/L (38-126); Aspartate Amino Transferase 49 Units/L (5-34); BUN/Creatinine Ratio 29 (6-26); Bilirubin,Total 0.7 mg/dL (0.2-1.2); Calcium 9.1 mg/dL (8.6-10.8); Carbon Dioxide 29 mEq/L (19-29); Chloride 102 mEq/L (98-109); Globulin 4.3 g/dL (2.4-3.5); Glucose 81 mg/dL (70-99); Magnesium 2.2 mg/dL (1.6-2.6); Osmolality,Calculated 298 (280-300); Phosphorous 5.2 mg/dL (2.3-4.7); Potassium 3.6 mEq/L (3.5-4.5); Sodium 140 mEq/L (136-145); Total Protein 6.4 g/dL (6.0-8.3); eGFR For African Americans > 60 (> 60); eGFR For Non-African Americans 53 (> 60)
[2017-03-21 05:01] LABS: Blood Urea Nitrogen 39 mg/dL (8-26)
[2017-03-21 05:03] LABS: Eosinophils # 0.4 K/mcL (0.0-0.6); Lymphocytes # 1.3 K/mcL (0.6-4.6); Platelet Estimate Normal (Normal)
[2017-03-21 05:04] LABS: Polychromasia 1+ (Not Present)
[2017-03-21 05:11] LABS: Ionized Calcium 1.18 mmol/L (1.15-1.35)
[2017-03-21] MEDS: Vasopressin 40 UNIT in D5% in Water 100 ML IV SCH (06:57)
[2017-03-21] MEDS: Dexmedetomidine HCl 400 MCG/100 ML MLS IVC SCH ×2 (06:57→19:34)
[2017-03-21] MEDS: Chlorhexidine Rinse 15 ML MOUTHWASH MM SCH ×2 (07:07→19:33)
[2017-03-21] MEDS: Sennosides 8.6 MG TABLET PO SCH (07:07)
[2017-03-21] MEDS: *HR* Heparin 5,000 UNIT/ML VIAL SQ SCH ×3 (07:08→21:00)
[2017-03-21] MEDS: Pantoprazole 40 MG VIAL IVP SCH (07:08)
[2017-03-21] MEDS: Lactulose Oral Soln 20 GM/30 ML UDC PO SCH ×2 (07:08→19:33)
--- NOTE | 2017-03-21 07:45 | Pulmonology Progress Note ---
<Rakel Munguia - Last Filed: 03/21/17 12:14> Date of Encounter: 03/21/17 Time of Encounter: 07:00 Assessment and Plan (1) Acute respiratory failure with hypoxia Current Visit: Yes Status: Acute Failed CPAP overnight. Family not interested in trach option until 14 days of patient on vent. Palliative care consult placed. (2) Altered mental status, unspecified Current Visit: Yes Status: Acute CT completed yesterday was normal. Most likely multifactorial due to side effects of medications and metabolic encephalopathy Qualifiers: Altered mental status type: unspecified Qualified Code(s): R41.82 - Altered mental status, unspecified (3) Acute kidney injury Current Visit: Yes Status: Resolved Nephro consulted. Urine output increased last night. No need for hemodialysis at this time. Continue CRRT Subjective Principal diagnosis: ARDS Interval history: Patient failed CPAP trial overnight. This is day 8 on ventilator. Overnight had one episode of hypogylcemia with labile blood pressures and HR. Currently getting K+ replacement. urine output has been increased since yesterday. All antibiotics were d/c yesterday. Objective PUL Vital signs: Last Vital Signs Temp 97.9 F 03/21/17 07:33 Pulse 116 03/21/17 07:15 Resp 22 03/21/17 07:00 BP 129/67 03/21/17 07:00 Pulse Ox 98 03/21/17 07:00 General appearance: no acute distress Eyes: nonicteric ENT: oropharynx moist Neck: supple, no JVD Effort: normal Auscultation: bilateral: clear Cardiovascular: regular rate and rhythm Gastrointestinal: normoactive bowel sounds, soft, non-distended Integumentary: normal Extremities: no edema, no ischemia or petechiae, cool Musculoskeletal: no deformities Gait: normal posture unable to assess due to mental status Ventilator Settings Ventilator Settings: Ventilator Settings, Last 8 Hours Ventilator Mode VC+ Ventilator Mode CPAP Ventilator Mode VC+ Ventilator Mode VC+ Ventilator Mode VC+ Ventilator Mode VC+ Ventilator Mode VC+ Ventilator Mode VC+ Ventilator Mode VC+ Ventilator Mode VC+ Ventilator Tidal Volume 500 Setting Ventilator Tidal Volume 500 Setting Ventilator Tidal Volume 500 Setting Ventilator Tidal Volume 500 Setting Ventilator Tidal Volume 500 Setting Ventilator Tidal Volume 500 Setting Ventilator Tidal Volume 500 Setting Ventilator Tidal Volume 500 Setting Ventilator Tidal Volume 500 Setting Ventilator Respiratory Rate 18 Setting Ventilator Respiratory Rate 18 Setting Ventilator Respiratory Rate 18 Setting Ventilator Respiratory Rate 18 Setting Ventilator Respiratory Rate 18 Setting Ventilator Respiratory Rate 18 Setting Ventilator Respiratory Rate 18 Setting Ventilator Respiratory Rate 18 Setting Ventilator Respiratory Rate 18 Setting Actual Respiratory Rate 22 Actual Respiratory Rate 21 Actual Respiratory Rate 21 Actual Respiratory Rate 21 Actual Respiratory Rate 21 Actual Respiratory Rate 21 Actual Respiratory Rate 21 Actual Respiratory Rate 21 Actual Respiratory Rate 19 Actual Respiratory Rate 19 Positive End Expiratory 6 Pressure Positive End Expiratory 6 Pressure Positive End Expiratory 6 Pressure Positive End Expiratory 6 Pressure Positive End Expiratory 6 Pressure Positive End Expiratory 6 Pressure Positive End Expiratory 6 Pressure Positive End Expiratory 6 Pressure Positive End Expiratory 6 Pressure Positive End Expiratory 6 Pressure Peak Inspiratory Airway 38 Pressure Peak Inspiratory Airway 18 Pressure Peak Inspiratory Airway 17 Pressure Peak Inspiratory Airway 17 Pressure Peak Inspiratory Airway 19 Pressure Peak Inspiratory Airway 19 Pressure Peak Inspiratory Airway 19 Pressure Peak Inspiratory Airway 19 Pressure Peak Inspiratory Airway 33 Pressure Peak Inspiratory Airway 33 Pressure Results - Laboratory Findings CBC and BMP: 03/21/17 04:05 03/21/17 04:05 ABG ABG pH 7.39 pH Units (7.32-7.45) 03/20/17 04:12 ABG pCO2 54 mmHg (35-45) H 03/20/17 04:12 ABG pO2 68 mmHg (85-104) L 03/20/17 04:12 ABG O2 Saturation 93 % (95-98) L 03/20/17 04:12 PT/INR, D-dimer PT 17.5 Seconds (9.4-12.1) H 03/20/17 03:40 Abnormal lab findings: Abnormal lab results WBC 21.7 K/mcL (4.3-11.1) H 03/21/17 04:05 RBC 3.53 M/mcL (4.19-5.50) L 03/21/17 04:05 Hgb 10.6 g/dL (12.9-16.9) L 03/21/17 04:05 Hct 34.4 % (37.5-50.1) L 03/21/17 04:05 MCHC 30.8 g/dL (31.6-35.5) L 03/21/17 04:05 RDW 15.7 % (11.5-14.5) H 03/21/17 04:05 Immature Gran % 8.1 % (0-4) H 03/16/17 05:00 Myelocytes % 3.0 % (0) H 03/19/17 03:47 Neutrophils # 20.0 K/mcL (1.6-8.9) H 03/21/17 04:05 Basophils # 0.4 K/mcL (0.0-0.2) H 03/17/17 03:15 Nucleated RBCs/100 WBC 0.3 /100 WBC (0) H 03/16/17 05:00 Hypersegmented Neuts Present (Not Present) A 03/19/17 03:47 Reactive Lymphocytes Present (Not Present) A 03/15/17 03:41 Smudge Cells Present (Not Present) A 03/14/17 04:45 Toxic Granulation Present (Not Present) A 03/20/17 03:40 Large Platelets Present (Not Present) A 03/15/17 03:41 Polychromasia 1+ (Not Present) A 03/21/17 04:05 Anisocytosis 1+ (Not Present) A 03/20/17 03:40 PT 17.5 Seconds (9.4-12.1) H 03/20/17 03:40 ABG pCO2 54 mmHg (35-45) H 03/20/17 04:12 ABG pO2 68 mmHg (85-104) L 03/20/17 04:12 ABG HCO3 32.7 mEQ/L (21-27) H 03/20/17 04:12 ABG Total CO2 34.4 mEq/L (20-26) H 03/20/17 04:12 ABG O2 Saturation 93 % (95-98) L 03/20/17 04:12 ABG Base Excess 6.4 mEq/L (-2.0 to 3.0) H 03/20/17 04:12 BUN 39 mg/dL (8-26) H D 03/21/17 04:05 Creatinine 1.33 mg/dL (0.72-1.25) H 03/21/17 04:05 Est GFR (Non-Af Amer) 53 (> 60) L 03/21/17 04:05 BUN/Creatinine Ratio 29 (6-26) H 03/21/17 04:05 POC Glucose 55 (58-89) L 03/21/17 00:13 Phosphorus 5.2 mg/dL (2.3-4.7) H 03/21/17 04:05 AST 49 Units/L (5-34) H 03/21/17 04:05 Creatine Kinase 386 Units/L (30-200) H 03/16/17 05:58 Albumin 2.1 g/dL (3.5-5.0) L 03/21/17 04:05 Globulin 4.3 g/dL (2.4-3.5) H 03/21/17 04:05 Albumin/Globulin Ratio 0.5 (1.1-2.2) L 03/21/17 04:05 Lipase 313 Units/L (8-78) H 03/16/17 05:58 Urine Clarity Cloudy (Clear) A 03/13/17 16:00 Urine Bilirubin Small (Negative) H 03/13/17 16:00 Ur Leukocyte Esterase Small (Negative) H 03/13/17 16:00 Ur Squamous Epith Cells Many per lpf (None-Few) H 03/13/17 16:00 Ur Culture Indicated? YES (NO) A 03/13/17 16:00 Vancomycin Trough 20.6 mcg/mL (10-20) H* 03/20/17 03:40 - Microbiology Findings Microbiology Findings: Microbiology, Last 48 Hours 03/16/17 17:00 Sputum Culture - Final Sputum Mary Kate albicans - Clinical Findings Intake & Output: Intake & Output 03/20/17 03/20/17 03/21/17 15:59 23:59 07:59 Intake Total 574 / 574 470 / 470 684 / 684 Output Total 60 / 60 80 / 80 420 / 420 Balance 514 / 514 390 / 390 264 / 264 Weight 165.607 kg Consult Discharge Plan - Plan Referrals: Cuca Carlos MD [Primary Care Provider] - <Jordi Llamas - Last Filed: 03/21/17 20:21> Date of Encounter: 03/21/17 Assessment and Plan (1) Acute respiratory failure with hypoxia Current Visit: Yes Status: Acute (2) Altered mental status, unspecified Current Visit: Yes Status: Acute Qualifiers: Altered mental status type: unspecified Qualified Code(s): R41.82 - Altered mental status, unspecified (3) Acute kidney injury Current Visit: Yes Status: Resolved Objective PUL Vital signs: Last Vital Signs Temp 97.2 F L 03/21/17 12:00 Pulse 78 03/21/17 13:00 Resp 18 03/21/17 13:00 BP 100/52 08/29/17 13:00 Pulse Ox 100 03/21/17 13:00 Ventilator Settings Ventilator Settings: Ventilator Settings, Last 8 Hours Ventilator Mode VC+ Ventilator Mode VC+ Ventilator Mode VC+ Ventilator Mode VC+ Ventilator Mode A/C Ventilator Mode VC+ Ventilator Mode A/C Ventilator Mode A/C Ventilator Mode VC+ Ventilator Mode VC+ Ventilator Mode CPAP Ventilator Mode VC+ Ventilator Tidal Volume 500 Setting Ventilator Tidal Volume 500 Setting Ventilator Tidal Volume 500 Setting Ventilator Tidal Volume 500 Setting Ventilator Tidal Volume 500 Setting Ventilator Tidal Volume 500 Setting Ventilator Tidal Volume 500 Setting Ventilator Tidal Volume 500 Setting Ventilator Tidal Volume 500 Setting Ventilator Tidal Volume 500 Setting Ventilator Tidal Volume 500 Setting Ventilator Respiratory Rate 18 Setting Ventilator Respiratory Rate 18 Setting Ventilator Respiratory Rate 18 Setting Ventilator Respiratory Rate 18 Setting Ventilator Respiratory Rate 18 Setting Ventilator Respiratory Rate 18 Setting Ventilator Respiratory Rate 18 Setting Ventilator Respiratory Rate 18 Setting Ventilator Respiratory Rate 18 Setting Ventilator Respiratory Rate 18 Setting Ventilator Respiratory Rate 18 Setting Actual Respiratory Rate 18 Actual Respiratory Rate 18 Actual Respiratory Rate 18 Actual Respiratory Rate 18 Actual Respiratory Rate 18 Actual Respiratory Rate 18 Actual Respiratory Rate 20 Actual Respiratory Rate 18 Actual Respiratory Rate 22 Actual Respiratory Rate 21 Actual Respiratory Rate 21 Positive End Expiratory 6 Pressure Positive End Expiratory 6 Pressure Positive End Expiratory 6 Pressure Positive End Expiratory 6 Pressure Positive End Expiratory 6 Pressure Positive End Expiratory 6 Pressure Positive End Expiratory 6 Pressure Positive End Expiratory 6 Pressure Positive End Expiratory 6 Pressure Positive End Expiratory 6 Pressure Positive End Expiratory 6 Pressure Positive End Expiratory 6 Pressure Peak Inspiratory Airway 35 Pressure Peak Inspiratory Airway 34 Pressure Peak Inspiratory Airway 35 Pressure Peak Inspiratory Airway 36 Pressure Peak Inspiratory Airway 34 Pressure Peak Inspiratory Airway 34 Pressure Peak Inspiratory Airway 37 Pressure Peak Inspiratory Airway 38 Pressure Peak Inspiratory Airway 18 Pressure Peak Inspiratory Airway 17 Pressure Results - Laboratory Findings CBC and BMP: 03/21/17 04:05 03/21/17 04:05 ABG ABG pH 7.35 pH Units (7.32-7.45) 03/21/17 08:00 ABG pCO2 55 mmHg (35-45) H 03/21/17 08:00 ABG pO2 160 mmHg (85-104) H 03/21/17 08:00 ABG O2 Saturation 99 % (95-98) H 03/21/17 08:00 PT/INR, D-dimer PT 17.5 Seconds (9.4-12.1) H 03/20/17 03:40 Abnormal lab findings: Abnormal lab results WBC 21.7 K/mcL (4.3-11.1) H 03/21/17 04:05 RBC 3.53 M/mcL (4.19-5.50) L 03/21/17 04:05 Hgb 10.6 g/dL (12.9-16.9) L 03/21/17 04:05 Hct 34.4 % (37.5-50.1) L 03/21/17 04:05 MCHC 30.8 g/dL (31.6-35.5) L 03/21/17 04:05 RDW 15.7 % (11.5-14.5) H 03/21/17 04:05 Immature Gran % 8.1 % (0-4) H 03/16/17 05:00 Myelocytes % 3.0 % (0) H 03/19/17 03:47 Neutrophils # 20.0 K/mcL (1.6-8.9) H 03/21/17 04:05 Basophils # 0.4 K/mcL (0.0-0.2) H 03/17/17 03:15 Nucleated RBCs/100 WBC 0.3 /100 WBC (0) H 03/16/17 05:00 Hypersegmented Neuts Present (Not Present) A 03/19/17 03:47 Reactive Lymphocytes Present (Not Present) A 03/15/17 03:41 Smudge Cells Present (Not Present) A 03/14/17 04:45 Toxic Granulation Present (Not Present) A 03/20/17 03:40 Large Platelets Present (Not Present) A 03/15/17 03:41 Polychromasia 1+ (Not Present) A 03/21/17 04:05 Anisocytosis 1+ (Not Present) A 03/20/17 03:40 PT 17.5 Seconds (9.4-12.1) H 03/20/17 03:40 ABG pCO2 55 mmHg (35-45) H 03/21/17 08:00 ABG pO2 160 mmHg (85-104) H 03/21/17 08:00 ABG HCO3 30.4 mEQ/L (21-27) H 03/21/17 08:00 ABG Total CO2 32.1 mEq/L (20-26) H 03/21/17 08:00 ABG O2 Saturation 99 % (95-98) H 03/21/17 08:00 ABG Base Excess 3.9 mEq/L (-2.0 to 3.0) H 03/21/17 08:00 BUN 39 mg/dL (8-26) H D 03/21/17 04:05 Creatinine 1.33 mg/dL (0.72-1.25) H 03/21/17 04:05 Est GFR (Non-Af Amer) 53 (> 60) L 03/21/17 04:05 BUN/Creatinine Ratio 29 (6-26) H 03/21/17 04:05 POC Glucose 55 (58-89) L 03/21/17 00:13 Phosphorus 5.2 mg/dL (2.3-4.7) H 03/21/17 04:05 AST 49 Units/L (5-34) H 03/21/17 04:05 Creatine Kinase 386 Units/L (30-200) H 03/16/17 05:58 Albumin 2.1 g/dL (3.5-5.0) L 03/21/17 04:05 Globulin 4.3 g/dL (2.4-3.5) H 03/21/17 04:05 Albumin/Globulin Ratio 0.5 (1.1-2.2) L 03/21/17 04:05 Lipase 313 Units/L (8-78) H 03/16/17 05:58 Urine Clarity Cloudy (Clear) A 03/13/17 16:00 Urine Bilirubin Small (Negative) H 03/13/17 16:00 Ur Leukocyte Esterase Small (Negative) H 03/13/17 16:00 Ur Squamous Epith Cells Many per lpf (None-Few) H 03/13/17 16:00 Ur Culture Indicated? YES (NO) A 03/13/17 16:00 Vancomycin Trough 20.6 mcg/mL (10-20) H* 03/20/17 03:40 - Microbiology Findings Microbiology Findings: Microbiology, Last 48 Hours 03/16/17 17:00 Sputum Culture - Final Sputum Mary Kate albicans - Clinical Findings Intake & Output: Intake & Output 03/20/17 03/21/17 03/21/17 23:59 07:59 15:59 Intake Total 470 / 470 1052 / 1052 632 / 632 Output Total 80 / 80 420 / 420 125 / 125 Balance 390 / 390 632 / 632 507 / 507 Weight 165.607 kg - Attending Attestation I examined this patient and my medical decision-making was reviewed with the Resident Physician. I agree with the documented findings, disposition and treatment plan as described except to the extent set forth below. Patient seen and examined. Labs, radiology, chart personally reviewed. Agree with resident's history and physical, assessment, plan with following comments: IDEA MAN: Patient does not follows commands, patient become agitated very quickly Pulmonary: Acceptable oxygenation and ventilation, however patient failed SBT. Cardiovascular: relativelystable GI: Nutrition per dietary and GI prophylaxis per routine Heme: DVT prophylaxis per routine ID: Continue antibiotics and plan to de-escalation Renal; urine out put and renal funtion reviewed Endorcine: blood glucose is monitored Lines: all lines checked and no evidence of infections Skin: skin care to prevent pressure ulcers per nursing routine care overall prognosis is poor and I had long discussion with the at the bedside in the presence of the palliative care team. At this point they are thinking of stopping aggressive treatment and she will call the rest of the family. We will be working with the family regarding plan of care.
[2017-03-21 08:14] LABS: ABG Base Excess 3.9 mEq/L (-2.0 to 3.0); ABG HCO3 30.4 mEQ/L (21-27); ABG Oxygen Saturation 99 % (95-98); ABG PCO2 55 mmHg (35-45); ABG PH 7.35 pH Units (7.32-7.45); ABG PO2 160 mmHg (85-104); ABG TCO2 32.1 mEq/L (20-26); Blood Gas FiO2 50 %
--- NOTE | 2017-03-21 11:19 | Palliative - Consult Note ---
Date of Encounter: 03/21/17 Time of Encounter: 10:50 - Assessment and Plan (1) Counseling regarding advanced care planning and goals of care Current Visit: Yes Status: Acute Assessment and plan: Discussion held including pt , Lilly, Dr. Llamas, primary nurse Raul, and myself. Dr. Llamas update on clinical status and pt not tolerating breathing trials. Patients feels that she has given him enough time on the ventilator, and feels that she is doing more than he wants at this time. States "I feel like God is calling him home,, and I'm standing in the way". She desires compassionate extubation and comfort care. She will reach their son and daughter later this afternoon so they can make preparations to be here, and plan on extubation tomorrow am. Emotional support given, pt verbalized understanding of process. (2) Dyspnea Current Visit: Yes Status: Acute Assessment and plan: Remains on vent support at this time. He will need opioids available PRN tomorrow after extubation if he struggles with dyspnea or air hunger. MOnitor Qualifiers: Dyspnea type: unspecified Qualified Code(s): R06.00 - Dyspnea, unspecified (3) Generalized pain Current Visit: Yes Status: Acute Assessment and plan: Patient has a history of chronic back pain. Currently receiving Fentanyl at 200mcg/hr. Monitor and continue for today. (4) Anxiety Current Visit: Yes Status: Acute Assessment and plan: Sedated with propofol at this time. Continue today and d/c tomorrow in preparation for extubation. (5) Acute respiratory failure with hypoxia Current Visit: Yes Status: Acute (6) Acute kidney injury Current Visit: Yes Status: Resolved (7) Pneumonia Current Visit: No Status: Acute Qualifiers: Pneumonia type: due to unspecified organism Laterality: unspecified laterality Lung location: unspecified part of lung Qualified Code(s): J18.9 - Pneumonia, unspecified organism Palliative-CN HPI - Data of Consult Consult date: 03/21/17 Requesting Physician: Sharan Navarro MD Primary Care Provider: Cuca Carlos - Consult Narrative History of present illness: Mr. Child is a 71 year old male who presented to [facility] with 3 day history of shortness of breath. He was transferred to [place], and developed worsening respiratory distress, and he was intubated later than day. Was treated initially for sepsis and healthcare associated pneumonia, and still remains intubated n the ICU. He also had kidney injury, and is still followed closely by nephrology. He is still requiring moderate vent support, he is breathing over the vent, however, not tolerating CPAP trials resulting in tachycardia and high blood pressure. Today is day 8 on ventilator. Lilly is at bedside. Upon my visit, he remains sedated. Failed CPAP this am r/t tachycardia. Appears in no distress currently. Fingertips are cool and dusky. at bedside stating that she feels she has given him enough time if he were going to recover, and states that he would not want artificial ventilation [employer]. CC: Sharan Navarro MD Past Med Surg Social Fam HX - Past Medical History Medical history: no medical history Psychiatric history: no psych history - Past Surgical History Surgical History: appendectomy, knee replacement - Social History Smoking Status: Never smoker Smokeless Tobacco Status: No Alcohol use: none Drug use: none - Family History Father Adopted: No (Past medical history reviewed with the patient and noncontributory. ) Mother History Unknown: Yes Living Status: Hx Family Cardiac Disorders: Yes (CVA) Medications and Allergies Fluticasone Propionate Nasal [Flonase] 100 mcg NS DAILY 04/06/15 [History] Ropinirole HCl [Requip] 5 mg PO BID 04/06/15 [History] Sertraline [Zoloft] 200 mg PO DAILY 10/07/15 [History] Gabapentin [Neurontin] 300 mg PO TID 04/05/16 [History] Aspirin 81 mg PO DAILY 03/13/17 [History] Furosemide [Lasix] 20 mg PO DAILY 03/13/17 [History] Lisinopril/Hydrochlorothiazide [Zestoretic 20-25 mg Tablet] 1 each PO DAILY [History] Loratadine [Claritin] 10 mg PO DAILY 03/13/17 [History] Montelukast [Singulair] 10 mg PO DAILY 03/13/17 [History] Mv-Mn/FA/Vit K/Lycop/Lut/Coq10 [Daily Multivitamin Capsule] 1 each PO DAILY [History] Naproxen [Naprosyn] 500 mg PO BID PRN 03/13/17 [History] Nystatin Cream [Mycostatin Cream] 1 appl TP BID PRN 03/13/17 [History] Potassium Chloride [K-Tab ER] 20 meq PO DAILY 03/13/17 [History] Trazodone HCl 100 mg PO HS PRN 03/13/17 [History] Triamcinolone Acet 0.1% CRM [Kenalog] 1 appl TP BID PRN 03/13/17 [History] 3 Allergy/AdvReac Type Severity Reaction Status Date / Time hydrocodone [From Vicodin] AdvReac Gastrointestinal Verified 03/13/17 12:08 Upset Iodinated Contrast- Oral and AdvReac Vomiting Verified 03/13/17 12:08 IV Dye [Iodinated Contrast Media - IV Dye] ROS unobtainable: due to endotracheal tube Palliative Care-Exam - Constitutional Vitals: Temp Pulse Resp BP Pulse Ox 97.9 F 88 18 89/53 100 03/21/17 07:33 03/21/17 11:00 03/21/17 11:00 03/21/17 11:00 03/21/17 11:00 General appearance: Present: morbidly obese - Head Head Exam: Present: normal inspection, normocephalic - Eye Eye exam: Present: normal appearance, PERRL - Respiratory Respiratory exam: Present: CTAB Additional comments: Breath sounds course throughout - Cardiovascular Cardiovascular exam: Present: irregular rhythm - GI/Abdominal Exam GI/Abdominal exam: Present: normal bowel sounds, soft - Catheter Type: Urethral (Dior) - Extremities Exam Additional comments: Fingertips dusky and cool to touch. Generalized edema to upper and lower extremities - Neurological Exam Additional comments: Sedated on vent - Skin Skin exam: Present: dry, pallor, warm Internal Medicine - CN: Reslt - Labs CBC & Chem 7: 03/21/17 04:05 03/21/17 04:05 Labs: Short CBC 03/21/17 Range/Units 04:05 WBC 21.7 H (4.3-11.1) K/mcL Hgb 10.6 L (12.9-16.9) g/dL Hct 34.4 L (37.5-50.1) % Plt Count 175 (140-400) K/mcL Neutrophils # 20.0 H (1.6-8.9) K/mcL BMP 03/21/17 04:05 Sodium 140 Potassium 3.6 Chloride 102 Carbon Dioxide 29 BUN 39 H D Creatinine 1.33 H Glucose 81 Calcium 9.1 Liver Function 03/21/17 Range/Units 04:05 Total Bilirubin 0.7 (0.2-1.2) mg/dL AST 49 H (5-34) Units/L ALT 25 (0-55) Units/L Alkaline Phosphatase 89 (38-126) Units/L Albumin 2.1 L (3.5-5.0) g/dL - ABG Interpretation ABG results: ABG ABG pH 7.35 pH Units (7.32-7.45) 03/21/17 08:00 ABG pCO2 55 mmHg (35-45) H 03/21/17 08:00 ABG pO2 160 mmHg (85-104) H 03/21/17 08:00 ABG O2 Saturation 99 % (95-98) H 03/21/17 08:00 PT/INR, D-dimer PT 17.5 Seconds (9.4-12.1) H 03/20/17 03:40 - Impressions Impressions Head CT 03/20/17 11:00 IMPRESSION: No acute intracranial abnormality. D/ / Sage Saldaña MD / Sage Saldaña MD Interpreting Provider: Sage Saldaña MD Consult Discharge Plan - Plan Referrals: Cuca Carlos MD [Primary Care Provider] - Palliative Quality Palliative Quality: Screen for Code Status: Yes, Screen for Goals of Care: Yes, Screen for Pain: NA, If Pain Regimen Started, Initiate Bowel Regimen: NA, Screen for Nausea/Vomitting: NA Code Status: 03/16/17 10:27 CODE [Resuscitation Status: Active] [RES] Routine Comment: Resuscitation Status: Full Code 03/16/17 17:11 CODE [Resuscitation Status: Active] [RES] Routine Comment: Resuscitation Status: DNR-Comfort Care-Arrest
[2017-03-21 11:20] LABS: Hepatitis B Surface Antigen Nonreactive (Nonreactive)
[2017-03-21] MEDS: D5% in Water 1,000 ML IVC PRN ×2 (13:53→23:01)
[2017-03-22] MEDS: Insulin LISPRO 300 UNITS/3 ML VIAL SQ SCH ×3 (00:34→07:07)
[2017-03-22 03:27] LABS: Albumin 1.8 g/dL (3.5-5.0); Albumin/Globulin Ratio 0.5 (1.1-2.2); Bilirubin,Total 0.6 mg/dL (0.2-1.2); Calcium 8.3 mg/dL (8.6-10.8); Globulin 3.7 g/dL (2.4-3.5); Potassium 3.9 mEq/L (3.5-4.5); Total Protein 5.5 g/dL (6.0-8.3)
[2017-03-22] MEDS: Ipratropium/Albuterol Neb 3 ML IH SCH ×3 (03:30→11:21)
[2017-03-22] MEDS: *HR* Heparin 5,000 UNIT/ML VIAL SQ SCH (04:52)
[2017-03-22] MEDS: Lactulose Oral Soln 20 GM/30 ML UDC PO SCH (07:05)
[2017-03-22] MEDS: Sennosides 8.6 MG TABLET PO SCH (07:06)
[2017-03-22] MEDS: Pantoprazole 40 MG VIAL IVP SCH (07:06)
[2017-03-22] MEDS: Dexmedetomidine HCl 400 MCG/100 ML MLS IVC SCH (07:08)
--- NOTE | 2017-03-22 07:21 | Pulmonology Progress Note ---
<Rakel Munguia - Last Filed: 03/22/17 10:28> Date of Encounter: 03/22/17 Time of Encounter: 07:25 Assessment and Plan (1) Acute respiratory failure with hypoxia Current Visit: Yes Status: Acute Patient to be extubated today and transferred to comfort care per family wishes. (2) Altered mental status, unspecified Current Visit: Yes Status: Acute Most likely multifactorial due to side effects of medications and metabolic encephalopathy Qualifiers: Altered mental status type: unspecified Qualified Code(s): R41.82 - Altered mental status, unspecified (3) Acute kidney injury Current Visit: Yes Status: Resolved Nephro consulted. Family plans to place patient on comfort care this AM. Subjective Principal diagnosis: ARDS Interval history: Patient stable overnight with no concerns. Lab work this AM WNL. Family planning to extubate and transfer to comfort care this AM. Palliative care involved. Objective PUL Vital signs: Last Vital Signs Temp 98.4 F 03/22/17 04:00 Pulse 99 03/22/17 07:00 Resp 23 03/22/17 07:00 BP 144/84 03/22/17 07:00 Pulse Ox 94 03/22/17 07:00 General appearance: comatose Eyes: nonicteric ENT: oropharynx moist Neck: supple, no JVD Effort: normal Auscultation: bilateral: clear Cardiovascular: regular rate and rhythm Gastrointestinal: normoactive bowel sounds, soft, non-distended Integumentary: normal Extremities: no cyanosis, pulses normal, cool Musculoskeletal: no deformities Gait: normal posture unable to assess due to mental status Ventilator Settings Ventilator Settings: Ventilator Settings, Last 8 Hours Ventilator Mode A/C Ventilator Mode A/C Ventilator Mode A/C Ventilator Mode A/C Ventilator Mode A/C Ventilator Mode A/C Ventilator Mode A/C Ventilator Mode A/C Ventilator Mode A/C Ventilator Mode A/C Ventilator Mode A/C Ventilator Mode A/C Ventilator Tidal Volume 500 Setting Ventilator Tidal Volume 500 Setting Ventilator Tidal Volume 500 Setting Ventilator Tidal Volume 500 Setting Ventilator Tidal Volume 500 Setting Ventilator Tidal Volume 500 Setting Ventilator Tidal Volume 500 Setting Ventilator Tidal Volume 500 Setting Ventilator Tidal Volume 500 Setting Ventilator Tidal Volume 500 Setting Ventilator Tidal Volume 500 Setting Ventilator Tidal Volume 500 Setting Ventilator Respiratory Rate 18 Setting Ventilator Respiratory Rate 18 Setting Ventilator Respiratory Rate 18 Setting Ventilator Respiratory Rate 18 Setting Ventilator Respiratory Rate 18 Setting Ventilator Respiratory Rate 18 Setting Ventilator Respiratory Rate 18 Setting Ventilator Respiratory Rate 18 Setting Ventilator Respiratory Rate 18 Setting Ventilator Respiratory Rate 18 Setting Ventilator Respiratory Rate 18 Setting Ventilator Respiratory Rate 18 Setting Actual Respiratory Rate 23 Actual Respiratory Rate 18 Actual Respiratory Rate 18 Actual Respiratory Rate 18 Actual Respiratory Rate 18 Actual Respiratory Rate 18 Actual Respiratory Rate 18 Actual Respiratory Rate 18 Actual Respiratory Rate 18 Actual Respiratory Rate 18 Actual Respiratory Rate 18 Actual Respiratory Rate 20 Positive End Expiratory 6 Pressure Positive End Expiratory 6 Pressure Positive End Expiratory 6 Pressure Positive End Expiratory 6 Pressure Positive End Expiratory 6 Pressure Positive End Expiratory 6 Pressure Positive End Expiratory 6 Pressure Positive End Expiratory 6 Pressure Positive End Expiratory 6 Pressure Positive End Expiratory 6 Pressure Positive End Expiratory 6 Pressure Positive End Expiratory 6 Pressure Peak Inspiratory Airway 25 Pressure Peak Inspiratory Airway 34 Pressure Peak Inspiratory Airway 36 Pressure Peak Inspiratory Airway 37 Pressure Peak Inspiratory Airway 37 Pressure Peak Inspiratory Airway 37 Pressure Peak Inspiratory Airway 37 Pressure Peak Inspiratory Airway 37 Pressure Peak Inspiratory Airway 37 Pressure Peak Inspiratory Airway 35 Pressure Peak Inspiratory Airway 35 Pressure Peak Inspiratory Airway 38 Pressure Results - Laboratory Findings CBC and BMP: 03/21/17 04:05 03/22/17 03:00 ABG ABG pH 7.35 pH Units (7.32-7.45) 03/21/17 08:00 ABG pCO2 55 mmHg (35-45) H 03/21/17 08:00 ABG pO2 160 mmHg (85-104) H 03/21/17 08:00 ABG O2 Saturation 99 % (95-98) H 03/21/17 08:00 PT/INR, D-dimer PT 17.5 Seconds (9.4-12.1) H 03/20/17 03:40 Abnormal lab findings: Abnormal lab results WBC 21.7 K/mcL (4.3-11.1) H 03/21/17 04:05 RBC 3.53 M/mcL (4.19-5.50) L 03/21/17 04:05 Hgb 10.6 g/dL (12.9-16.9) L 03/21/17 04:05 Hct 34.4 % (37.5-50.1) L 03/21/17 04:05 MCHC 30.8 g/dL (31.6-35.5) L 03/21/17 04:05 RDW 15.7 % (11.5-14.5) H 03/21/17 04:05 Immature Gran % 8.1 % (0-4) H 03/16/17 05:00 Myelocytes % 3.0 % (0) H 03/19/17 03:47 Neutrophils # 20.0 K/mcL (1.6-8.9) H 03/21/17 04:05 Basophils # 0.4 K/mcL (0.0-0.2) H 03/17/17 03:15 Nucleated RBCs/100 WBC 0.3 /100 WBC (0) H 03/16/17 05:00 Hypersegmented Neuts Present (Not Present) A 03/19/17 03:47 Reactive Lymphocytes Present (Not Present) A 03/15/17 03:41 Smudge Cells Present (Not Present) A 03/14/17 04:45 Toxic Granulation Present (Not Present) A 03/20/17 03:40 Large Platelets Present (Not Present) A 03/15/17 03:41 Polychromasia 1+ (Not Present) A 03/21/17 04:05 Anisocytosis 1+ (Not Present) A 03/20/17 03:40 PT 17.5 Seconds (9.4-12.1) H 03/20/17 03:40 ABG pCO2 55 mmHg (35-45) H 03/21/17 08:00 ABG pO2 160 mmHg (85-104) H 03/21/17 08:00 ABG HCO3 30.4 mEQ/L (21-27) H 03/21/17 08:00 ABG Total CO2 32.1 mEq/L (20-26) H 03/21/17 08:00 ABG O2 Saturation 99 % (95-98) H 03/21/17 08:00 ABG Base Excess 3.9 mEq/L (-2.0 to 3.0) H 03/21/17 08:00 Sodium 135 mEq/L (136-145) L 03/22/17 03:00 BUN 45 mg/dL (8-26) H 03/22/17 03:00 Creatinine 1.56 mg/dL (0.72-1.25) H 03/22/17 03:00 Est GFR ( Amer) 53 (> 60) L 03/22/17 03:00 Est GFR (Non-Af Amer) 44 (> 60) L 03/22/17 03:00 BUN/Creatinine Ratio 29 (6-26) H 03/22/17 03:00 Glucose 102 mg/dL (70-99) H 03/22/17 03:00 Calcium 8.3 mg/dL (8.6-10.8) L 03/22/17 03:00 Phosphorus 5.2 mg/dL (2.3-4.7) H 03/21/17 04:05 AST 40 Units/L (5-34) H 03/22/17 03:00 Creatine Kinase 386 Units/L (30-200) H 03/16/17 05:58 Serum Total Protein 5.5 g/dL (6.0-8.3) L 03/22/17 03:00 Albumin 1.8 g/dL (3.5-5.0) L 03/22/17 03:00 Globulin 3.7 g/dL (2.4-3.5) H 03/22/17 03:00 Albumin/Globulin Ratio 0.5 (1.1-2.2) L 03/22/17 03:00 Lipase 313 Units/L (8-78) H 03/16/17 05:58 Urine Clarity Cloudy (Clear) A 03/13/17 16:00 Urine Bilirubin Small (Negative) H 03/13/17 16:00 Ur Leukocyte Esterase Small (Negative) H 03/13/17 16:00 Ur Squamous Epith Cells Many per lpf (None-Few) H 03/13/17 16:00 Ur Culture Indicated? YES (NO) A 03/13/17 16:00 Vancomycin Trough 20.6 mcg/mL (10-20) H* 03/20/17 03:40 - Microbiology Findings Microbiology Findings: Microbiology, Last 48 Hours 03/16/17 17:00 Sputum Culture - Final Sputum Mary Kate albicans - Clinical Findings Intake & Output: Intake & Output 03/21/17 03/21/17 03/22/17 15:59 23:59 07:59 Intake Total 1000 / 1000 1632 / 1632 645 / 645 Output Total 275 / 275 350 / 350 600 / 600 Balance 725 / 725 1282 / 1282 45 / 45 Weight 169 kg Consult Discharge Plan - Plan Referrals: Cuca Carlos MD [Primary Care Provider] - <Jordi Llamas - Last Filed: 08/30/17 10:36> Date of Encounter: 03/22/17 Assessment and Plan (1) Acute respiratory failure with hypoxia Current Visit: Yes Status: Acute (2) Altered mental status, unspecified Current Visit: Yes Status: Acute Qualifiers: Altered mental status type: unspecified Qualified Code(s): R41.82 - Altered mental status, unspecified (3) Acute kidney injury Current Visit: Yes Status: Resolved Objective PUL Vital signs: Last Vital Signs Temp 98.4 F 03/22/17 04:00 Pulse 92 03/22/17 08:00 Resp 18 03/22/17 08:00 BP 81/50 03/22/17 08:00 Pulse Ox 100 03/22/17 08:00 Ventilator Settings Ventilator Settings: Ventilator Settings, Last 8 Hours Ventilator Mode VC+ Ventilator Mode VC+ Ventilator Mode A/C Ventilator Mode A/C Ventilator Mode A/C Ventilator Mode A/C Ventilator Mode A/C Ventilator Mode A/C Ventilator Mode A/C Ventilator Tidal Volume 500 Setting Ventilator Tidal Volume 500 Setting Ventilator Tidal Volume 500 Setting Ventilator Tidal Volume 500 Setting Ventilator Tidal Volume 500 Setting Ventilator Tidal Volume 500 Setting Ventilator Tidal Volume 500 Setting Ventilator Tidal Volume 500 Setting Ventilator Tidal Volume 500 Setting Ventilator Respiratory Rate 18 Setting Ventilator Respiratory Rate 18 Setting Ventilator Respiratory Rate 18 Setting Ventilator Respiratory Rate 18 Setting Ventilator Respiratory Rate 18 Setting Ventilator Respiratory Rate 18 Setting Ventilator Respiratory Rate 18 Setting Ventilator Respiratory Rate 18 Setting Ventilator Respiratory Rate 18 Setting Actual Respiratory Rate 18 Actual Respiratory Rate 20 Actual Respiratory Rate 23 Actual Respiratory Rate 18 Actual Respiratory Rate 18 Actual Respiratory Rate 18 Actual Respiratory Rate 18 Actual Respiratory Rate 18 Actual Respiratory Rate 18 Positive End Expiratory 6 Pressure Positive End Expiratory 6 Pressure Positive End Expiratory 6 Pressure Positive End Expiratory 6 Pressure Positive End Expiratory 6 Pressure Positive End Expiratory 6 Pressure Positive End Expiratory 6 Pressure Positive End Expiratory 6 Pressure Positive End Expiratory 6 Pressure Peak Inspiratory Airway 42 Pressure Peak Inspiratory Airway 29 Pressure Peak Inspiratory Airway 25 Pressure Peak Inspiratory Airway 34 Pressure Peak Inspiratory Airway 36 Pressure Peak Inspiratory Airway 37 Pressure Peak Inspiratory Airway 37 Pressure Peak Inspiratory Airway 37 Pressure Peak Inspiratory Airway 37 Pressure Results - Laboratory Findings CBC and BMP: 03/21/17 04:05 03/22/17 03:00 ABG ABG pH 7.35 pH Units (7.32-7.45) 03/21/17 08:00 ABG pCO2 55 mmHg (35-45) H 03/21/17 08:00 ABG pO2 160 mmHg (85-104) H 03/21/17 08:00 ABG O2 Saturation 99 % (95-98) H 03/21/17 08:00 PT/INR, D-dimer PT 17.5 Seconds (9.4-12.1) H 03/20/17 03:40 Abnormal lab findings: Abnormal lab results WBC 21.7 K/mcL (4.3-11.1) H 03/21/17 04:05 RBC 3.53 M/mcL (4.19-5.50) L 03/21/17 04:05 Hgb 10.6 g/dL (12.9-16.9) L 03/21/17 04:05 Hct 34.4 % (37.5-50.1) L 03/21/17 04:05 MCHC 30.8 g/dL (31.6-35.5) L 03/21/17 04:05 RDW 15.7 % (11.5-14.5) H 03/21/17 04:05 Immature Gran % 8.1 % (0-4) H 03/16/17 05:00 Myelocytes % 3.0 % (0) H 03/19/17 03:47 Neutrophils # 20.0 K/mcL (1.6-8.9) H 03/21/17 04:05 Basophils # 0.4 K/mcL (0.0-0.2) H 03/17/17 03:15 Nucleated RBCs/100 WBC 0.3 /100 WBC (0) H 03/16/17 05:00 Hypersegmented Neuts Present (Not Present) A 03/19/17 03:47 Reactive Lymphocytes Present (Not Present) A 03/15/17 03:41 Smudge Cells Present (Not Present) A 03/14/17 04:45 Toxic Granulation Present (Not Present) A 03/20/17 03:40 Large Platelets Present (Not Present) A 03/15/17 03:41 Polychromasia 1+ (Not Present) A 03/21/17 04:05 Anisocytosis 1+ (Not Present) A 03/20/17 03:40 PT 17.5 Seconds (9.4-12.1) H 03/20/17 03:40 ABG pCO2 55 mmHg (35-45) H 03/21/17 08:00 ABG pO2 160 mmHg (85-104) H 03/21/17 08:00 ABG HCO3 30.4 mEQ/L (21-27) H 03/21/17 08:00 ABG Total CO2 32.1 mEq/L (20-26) H 03/21/17 08:00 ABG O2 Saturation 99 % (95-98) H 03/21/17 08:00 ABG Base Excess 3.9 mEq/L (-2.0 to 3.0) H 03/21/17 08:00 Sodium 135 mEq/L (136-145) L 03/22/17 03:00 BUN 45 mg/dL (8-26) H 03/22/17 03:00 Creatinine 1.56 mg/dL (0.72-1.25) H 03/22/17 03:00 Est GFR ( Amer) 53 (> 60) L 03/22/17 03:00 Est GFR (Non-Af Amer) 44 (> 60) L 03/22/17 03:00 BUN/Creatinine Ratio 29 (6-26) H 03/22/17 03:00 Glucose 102 mg/dL (70-99) H 03/22/17 03:00 Calcium 8.3 mg/dL (8.6-10.8) L 03/22/17 03:00 Phosphorus 5.2 mg/dL (2.3-4.7) H 03/21/17 04:05 AST 40 Units/L (5-34) H 03/22/17 03:00 Creatine Kinase 386 Units/L (30-200) H 03/16/17 05:58 Serum Total Protein 5.5 g/dL (6.0-8.3) L 03/22/17 03:00 Albumin 1.8 g/dL (3.5-5.0) L 03/22/17 03:00 Globulin 3.7 g/dL (2.4-3.5) H 03/22/17 03:00 Albumin/Globulin Ratio 0.5 (1.1-2.2) L 03/22/17 03:00 Lipase 313 Units/L (8-78) H 03/16/17 05:58 Urine Clarity Cloudy (Clear) A 03/13/17 16:00 Urine Bilirubin Small (Negative) H 03/13/17 16:00 Ur Leukocyte Esterase Small (Negative) H 03/13/17 16:00 Ur Squamous Epith Cells Many per lpf (None-Few) H 03/13/17 16:00 Ur Culture Indicated? YES (NO) A 03/13/17 16:00 Vancomycin Trough 20.6 mcg/mL (10-20) H* 03/20/17 03:40 - Microbiology Findings Microbiology Findings: Microbiology, Last 48 Hours 03/16/17 17:00 Sputum Culture - Final Sputum Mary Kate albicans - Clinical Findings Intake & Output: Intake & Output 03/21/17 03/22/17 03/22/17 23:59 07:59 15:59 Intake Total 1632 / 1632 745 / 745 1050 / 1050 Output Total 350 / 350 600 / 600 Balance 1282 / 1282 145 / 145 1050 / 1050 Weight 169 kg - Attending Attestation I examined this patient and my medical decision-making was reviewed with the Resident Physician. I agree with the documented findings, disposition and treatment plan as described except to the extent set forth below. Patient seen and examined. Labs, radiology, chart personally reviewed. Agree with resident's history and physical, assessment, plan with following comments: Family at the bedside and patient was extubated. Palliative care is assisting as well. Overall there was no changes in physical examination and his condition before extubation and patient was on ventilator which I changed mode from volume control to volume control plus for his comfort before extubation. Patient is on sedation but not following commands. I expect patient will and family understand that.
[2017-03-22] MEDS: Chlorhexidine Rinse 15 ML MOUTHWASH MM SCH (07:32)
[2017-03-22] MEDS ORDERED: Glycopyrrolate 0.2 MG/ML VIAL IVP ONE (09:40)
[2017-03-22] MEDS ORDERED: Atropine Sulfate 1% 40 DROP/2 ML BOTTLE SL PRN (09:40)
[2017-03-22] MEDS ORDERED: *HR* LORazepam 2 MG/ML VIAL IVP PRN ×2 (09:41→11:55)
[2017-03-22] MEDS ORDERED: *HR* Morphine 2 MG/ML SYRINGE IVP PRN ×2 (09:46→13:43)
--- NOTE | 2017-03-22 09:52 | Palliative Progress Note ---
Date of Encounter: 03/22/17 Time of Encounter: 09:45 - Assessment and plan (1) Counseling regarding advanced care planning and goals of care Current Visit: Yes Status: Acute Assessment and plan: Patient has been extubated and transitioned to comfort care. FAmily at bedside. If stable, may transition to palliative care unit for continued comfort care under hospitalist. (2) Dyspnea Current Visit: Yes Status: Acute Assessment and plan: Has been extubated. Oxygen per nasal cannula for comfort. Continue Fentanyl at bedside. Morphine PRN for resp distress Qualifiers: Dyspnea type: unspecified Qualified Code(s): R06.00 - Dyspnea, unspecified (3) Generalized pain Current Visit: Yes Status: Acute (4) Anxiety Current Visit: Yes Status: Acute Assessment and plan: Propofol has been d/c'd. Lorazepam IV PRN. (5) Acute respiratory failure with hypoxia Current Visit: Yes Status: Acute (6) Acute kidney injury Current Visit: Yes Status: Resolved (7) Pneumonia Current Visit: No Status: Acute Qualifiers: Pneumonia type: due to unspecified organism Laterality: unspecified laterality Lung location: unspecified part of lung Qualified Code(s): J18.9 - Pneumonia, unspecified organism - Time Spent With Patient Total time spent is greater than 50% in coordination of care (as documented) at patient's floor/unit and/or counseling patient: 25 - 35 minutes - Subjective Interval history: Patient has been extubated. Currently with resp rate in 30's, audible upper airway secretions. Appears dyspneic. Family at bedside. - Constitutional Vitals: Abnormal lab results WBC 21.7 K/mcL (4.3-11.1) H 03/21/17 04:05 RBC 3.53 M/mcL (4.19-5.50) L 03/21/17 04:05 Hgb 10.6 g/dL (12.9-16.9) L 03/21/17 04:05 Hct 34.4 % (37.5-50.1) L 03/21/17 04:05 MCHC 30.8 g/dL (31.6-35.5) L 03/21/17 04:05 RDW 15.7 % (11.5-14.5) H 03/21/17 04:05 Immature Gran % 8.1 % (0-4) H 03/16/17 05:00 Myelocytes % 3.0 % (0) H 03/19/17 03:47 Neutrophils # 20.0 K/mcL (1.6-8.9) H 03/21/17 04:05 Basophils # 0.4 K/mcL (0.0-0.2) H 03/17/17 03:15 Nucleated RBCs/100 WBC 0.3 /100 WBC (0) H 03/16/17 05:00 Hypersegmented Neuts Present (Not Present) A 03/19/17 03:47 Reactive Lymphocytes Present (Not Present) A 03/15/17 03:41 Smudge Cells Present (Not Present) A 03/14/17 04:45 Toxic Granulation Present (Not Present) A 03/20/17 03:40 Large Platelets Present (Not Present) A 03/15/17 03:41 Polychromasia 1+ (Not Present) A 03/21/17 04:05 Anisocytosis 1+ (Not Present) A 03/20/17 03:40 PT 17.5 Seconds (9.4-12.1) H 03/20/17 03:40 ABG pCO2 55 mmHg (35-45) H 03/21/17 08:00 ABG pO2 160 mmHg (85-104) H 03/21/17 08:00 ABG HCO3 30.4 mEQ/L (21-27) H 03/21/17 08:00 ABG Total CO2 32.1 mEq/L (20-26) H 03/21/17 08:00 ABG O2 Saturation 99 % (95-98) H 03/21/17 08:00 ABG Base Excess 3.9 mEq/L (-2.0 to 3.0) H 03/21/17 08:00 Sodium 135 mEq/L (136-145) L 03/22/17 03:00 BUN 45 mg/dL (8-26) H 03/22/17 03:00 Creatinine 1.56 mg/dL (0.72-1.25) H 03/22/17 03:00 Est GFR ( Amer) 53 (> 60) L 03/22/17 03:00 Est GFR (Non-Af Amer) 44 (> 60) L 03/22/17 03:00 BUN/Creatinine Ratio 29 (6-26) H 03/22/17 03:00 Glucose 102 mg/dL (70-99) H 03/22/17 03:00 Calcium 8.3 mg/dL (8.6-10.8) L 03/22/17 03:00 Phosphorus 5.2 mg/dL (2.3-4.7) H 03/21/17 04:05 AST 40 Units/L (5-34) H 03/22/17 03:00 Creatine Kinase 386 Units/L (30-200) H 03/16/17 05:58 Serum Total Protein 5.5 g/dL (6.0-8.3) L 03/22/17 03:00 Albumin 1.8 g/dL (3.5-5.0) L 03/22/17 03:00 Globulin 3.7 g/dL (2.4-3.5) H 03/22/17 03:00 Albumin/Globulin Ratio 0.5 (1.1-2.2) L 03/22/17 03:00 Lipase 313 Units/L (8-78) H 03/16/17 05:58 Urine Clarity Cloudy (Clear) A 03/13/17 16:00 Urine Bilirubin Small (Negative) H 03/13/17 16:00 Ur Leukocyte Esterase Small (Negative) H 03/13/17 16:00 Ur Squamous Epith Cells Many per lpf (None-Few) H 03/13/17 16:00 Ur Culture Indicated? YES (NO) A 03/13/17 16:00 Vancomycin Trough 20.6 mcg/mL (10-20) H* 03/20/17 03:40 General appearance: Present: mild distress - Respiratory Respiratory exam: Present: respiratory distress, rhonchi - Cardiovascular Cardiovascular exam: Present: tachycardia - GI/Abdominal GI/Abdominal exam: Present: distended, soft - Extremities Exam Extremities exam: Present: normal capillary refill, normal inspection - Neurological Exam Additional comments: Eyes open, no verbal response. Does not follow commands - Skin Skin exam: Present: dry, warm Palliative Quality Palliative Quality: Screen for Code Status: Yes, Screen for Goals of Care: Yes, Screen for Pain: NA, If Pain Regimen Started, Initiate Bowel Regimen: NA, Screen for Nausea/Vomitting: NA Code Status: 03/16/17 10:27 CODE [Resuscitation Status: Active] [RES] Routine Comment: Resuscitation Status: Full Code 03/16/17 17:11 CODE [Resuscitation Status: Active] [RES] Routine Comment: Resuscitation Status: DNR-Comfort Care-Arrest 03/22/17 09:21 CODE [Resuscitation Status: Active] [RES] Routine Comment: 9:19 extubated Resuscitation Status: DNR-Comfort Care - Labs CBC & Chem 7: 03/21/17 04:05 03/22/17 03:00 Labs: Laboratory Results - last 24 hr 03/21/17 03/21/17 03/21/17 04:54 04:56 05:43 Sodium Potassium Chloride Carbon Dioxide BUN Creatinine Est GFR ( Amer) Est GFR (Non-Af Amer) BUN/Creatinine Ratio Glucose POC Glucose 44 L* 62 49 L* Calculated Osmolality Calcium Total Bilirubin AST ALT Alkaline Phosphatase Serum Total Protein Albumin Globulin Albumin/Globulin Ratio Hep Bs Antigen 03/21/17 03/21/17 03/21/17 05:45 06:37 08:33 Sodium Potassium Chloride Carbon Dioxide BUN Creatinine Est GFR ( Amer) Est GFR (Non-Af Amer) BUN/Creatinine Ratio Glucose POC Glucose 66 100 H 73 Calculated Osmolality Calcium Total Bilirubin AST ALT Alkaline Phosphatase Serum Total Protein Albumin Globulin Albumin/Globulin Ratio Hep Bs Antigen 03/21/17 03/21/17 03/21/17 09:20 11:17 13:48 Sodium Potassium Chloride Carbon Dioxide BUN Creatinine Est GFR ( Amer) Est GFR (Non-Af Amer) BUN/Creatinine Ratio Glucose POC Glucose 78 66 Calculated Osmolality Calcium Total Bilirubin AST ALT Alkaline Phosphatase Serum Total Protein Albumin Globulin Albumin/Globulin Ratio Hep Bs Antigen Nonreactive 03/21/17 03/21/17 03/21/17 15:24 19:16 21:11 Sodium Potassium Chloride Carbon Dioxide BUN Creatinine Est GFR ( Amer) Est GFR (Non-Af Amer) BUN/Creatinine Ratio Glucose POC Glucose 75 65 90 H Calculated Osmolality Calcium Total Bilirubin AST ALT Alkaline Phosphatase Serum Total Protein Albumin Globulin Albumin/Globulin Ratio Hep Bs Antigen 03/21/17 03/22/17 23:12 03:00 Sodium 135 L Potassium 3.9 Chloride 100 Carbon Dioxide 28 BUN 45 H Creatinine 1.56 H Est GFR ( Amer) 53 L Est GFR (Non-Af Amer) 44 L BUN/Creatinine Ratio 29 H Glucose 102 H POC Glucose 69 Calculated Osmolality 292 Calcium 8.3 L Total Bilirubin 0.6 AST 40 H ALT 22 Alkaline Phosphatase 76 Serum Total Protein 5.5 L Albumin 1.8 L Globulin 3.7 H Albumin/Globulin Ratio 0.5 L Hep Bs Antigen - ABG Interpretation ABG results: ABG ABG pH 7.35 pH Units (7.32-7.45) 03/21/17 08:00 ABG pCO2 55 mmHg (35-45) H 03/21/17 08:00 ABG pO2 160 mmHg (85-104) H 03/21/17 08:00 ABG O2 Saturation 99 % (95-98) H 03/21/17 08:00 PT/INR, D-dimer PT 17.5 Seconds (9.4-12.1) H 03/20/17 03:40 Consult Discharge Plan - Plan Referrals: Cuca Carlos MD [Primary Care Provider] -
[2017-03-22] MEDS ORDERED: *HR* Morphine 2 MG/ML SYRINGE IVP ONE (10:12)
[2017-03-22] MEDS: FentaNYL (PF) 3,000 MCG in 0.9 % Sodium Chloride 240 ML IVC SCH (10:32)
[2017-03-22] MEDS ORDERED: Haloperidol Lactate 5 MG/ML VIAL IVP ONE (10:58)
[2017-03-22] MEDS ORDERED: Haloperidol Lactate 5 MG/ML VIAL ONE (11:00)
[2017-03-22] MEDS ORDERED: Haloperidol Lactate 5 MG/ML VIAL IVP PRN ×2 (11:53→13:43)
[2017-03-22] MEDS ORDERED: Morphine 50 MG in D5% in Water 45 ML IVC SCH (12:15)
[2017-03-22 12:58] LABS: Hepatitis B Surface Antibody 0.42 mIU/mL
--- NOTE | 2017-03-22 13:44 | Event Note ---
Date of Encounter: 03/22/17 Time of Encounter: 13:00 Patient stable. RR 30. Resting quietly. D/W ICU staff, he may transfer to palliative unit under hospitalist care. Depending on his status in the am, will possibly discuss general inpt hospice transition with family. Continue to monitor.
[2017-03-22] MEDS: Morphine 50 MG in D5% in Water 45 ML IVC SCH (13:53)
[2017-03-22] MEDS: Haloperidol Lactate 5 MG/ML VIAL IVP SCH (15:08)
[2017-03-22] MEDS ORDERED: Haloperidol Lactate 5 MG/ML VIAL IVP SCH (16:00)
[2017-03-22] MEDS ORDERED: Ipratropium/Albuterol Neb 3 ML IH SCH (16:00)
[2017-03-22] MEDS: *HR* LORazepam 2 MG/ML VIAL IVP PRN ×2 (16:42→18:51)
[2017-03-22] MEDS: Atropine Sulfate 1% 40 DROP/2 ML BOTTLE SL PRN (16:42)
[2017-03-22] MEDS ORDERED: 0.9 % Sodium Chloride 500 ML ONE (22:24)
[2017-03-23] MEDS: Haloperidol Lactate 5 MG/ML VIAL IVP SCH ×4 (00:20→08:56)
[2017-03-23] MEDS: Morphine 50 MG in D5% in Water 45 ML IVC SCH ×2 (01:09→10:19)
[2017-03-23 07:47] VITALS: BP 60/34
--- NOTE | 2017-03-23 08:11 | Internal Med Progress Note ---
Date of Encounter: 03/23/17 Time of Encounter: 08:09 - Assessment and plan (1) Pneumonia Current Visit: Yes Status: Acute Qualifiers: Pneumonia type: due to unspecified organism Laterality: unspecified laterality Lung location: unspecified part of lung Qualified Code(s): J18.9 - Pneumonia, unspecified organism (2) Acute respiratory failure with hypoxia Current Visit: Yes Status: Acute (3) Sepsis associated hypotension Current Visit: Yes Status: Acute (4) Acute kidney injury Current Visit: Yes Status: Resolved (5) DNR (do not resuscitate) Current Visit: Yes Status: Acute - Subjective Interval history: Pt is transfer from ICU. ON DNR- Comfort Care. - Constitutional Vitals: Temp Pulse Resp BP Pulse Ox 97.6 F 93 16 60/34 76 03/23/17 07:45 03/23/17 07:45 03/23/17 07:45 03/23/17 07:45 03/23/17 07:45 Internal Medicine: Result - Labs CBC & Chem 7: 03/21/17 04:05 03/22/17 03:00 - ABG Interpretation ABG results: ABG ABG pH 7.35 pH Units (7.32-7.45) 03/21/17 08:00 ABG pCO2 55 mmHg (35-45) H 03/21/17 08:00 ABG pO2 160 mmHg (85-104) H 03/21/17 08:00 ABG O2 Saturation 99 % (95-98) H 03/21/17 08:00 PT/INR, D-dimer PT 17.5 Seconds (9.4-12.1) H 03/20/17 03:40 Consult Discharge Plan - Plan Referrals: Cuca Carlos MD [Primary Care Provider] -
--- NOTE | 2017-03-23 08:39 | Palliative Progress Note ---
Date of Encounter: 03/23/17 Time of Encounter: 08:30 - Assessment and plan (1) Agitation Current Visit: Yes Status: Acute (2) Dyspnea Current Visit: Yes Status: Acute Assessment and plan: Appears in no distress. Continue Morphine drip at 5mg/hr and monitor. Titrate if needed. Qualifiers: Dyspnea type: unspecified Qualified Code(s): R06.00 - Dyspnea, unspecified (3) Generalized pain Current Visit: Yes Status: Acute Assessment and plan: Continue Morphine. He has boluses available for breakthough pain if needed. (4) Anxiety Current Visit: Yes Status: Acute Assessment and plan: Continue Lorazepam PRN. Utilized x2 last 24 hours (5) Counseling regarding advanced care planning and goals of care Current Visit: Yes Status: Acute Assessment and plan: Continue comfort plan of care. O2 saturations continue to decline, and quite hypotensive this am - will continue to monitor. I do not think he will survive long enough to warrant transition to inpt hospice. Will discuss with family later when they arrive. (6) Acute respiratory failure with hypoxia Current Visit: Yes Status: Acute (7) Acute kidney injury Current Visit: Yes Status: Resolved (8) Pneumonia Current Visit: Yes Status: Acute Qualifiers: Pneumonia type: due to unspecified organism Laterality: unspecified laterality Lung location: unspecified part of lung Qualified Code(s): J18.9 - Pneumonia, unspecified organism - Time Spent With Patient Total time spent is greater than 50% in coordination of care (as documented) at patient's floor/unit and/or counseling patient: 25 - 35 minutes - Subjective Interval history: Patient unresponsive. Resp easy and regular. + upper airway secretions. No family present - Constitutional Vitals: Abnormal lab results WBC 21.7 K/mcL (4.3-11.1) H 03/21/17 04:05 RBC 3.53 M/mcL (4.19-5.50) L 03/21/17 04:05 Hgb 10.6 g/dL (12.9-16.9) L 03/21/17 04:05 Hct 34.4 % (37.5-50.1) L 03/21/17 04:05 MCHC 30.8 g/dL (31.6-35.5) L 03/21/17 04:05 RDW 15.7 % (11.5-14.5) H 03/21/17 04:05 Immature Gran % 8.1 % (0-4) H 03/16/17 05:00 Myelocytes % 3.0 % (0) H 03/19/17 03:47 Neutrophils # 20.0 K/mcL (1.6-8.9) H 03/21/17 04:05 Basophils # 0.4 K/mcL (0.0-0.2) H 03/17/17 03:15 Nucleated RBCs/100 WBC 0.3 /100 WBC (0) H 03/16/17 05:00 Hypersegmented Neuts Present (Not Present) A 03/19/17 03:47 Reactive Lymphocytes Present (Not Present) A 03/15/17 03:41 Smudge Cells Present (Not Present) A 03/14/17 04:45 Toxic Granulation Present (Not Present) A 03/20/17 03:40 Large Platelets Present (Not Present) A 03/15/17 03:41 Polychromasia 1+ (Not Present) A 03/21/17 04:05 Anisocytosis 1+ (Not Present) A 03/20/17 03:40 PT 17.5 Seconds (9.4-12.1) H 03/20/17 03:40 ABG pCO2 55 mmHg (35-45) H 03/21/17 08:00 ABG pO2 160 mmHg (85-104) H 03/21/17 08:00 ABG HCO3 30.4 mEQ/L (21-27) H 03/21/17 08:00 ABG Total CO2 32.1 mEq/L (20-26) H 03/21/17 08:00 ABG O2 Saturation 99 % (95-98) H 03/21/17 08:00 ABG Base Excess 3.9 mEq/L (-2.0 to 3.0) H 03/21/17 08:00 Sodium 135 mEq/L (136-145) L 03/22/17 03:00 BUN 45 mg/dL (8-26) H 03/22/17 03:00 Creatinine 1.56 mg/dL (0.72-1.25) H 03/22/17 03:00 Est GFR ( Amer) 53 (> 60) L 03/22/17 03:00 Est GFR (Non-Af Amer) 44 (> 60) L 03/22/17 03:00 BUN/Creatinine Ratio 29 (6-26) H 03/22/17 03:00 Glucose 102 mg/dL (70-99) H 03/22/17 03:00 Calcium 8.3 mg/dL (8.6-10.8) L 03/22/17 03:00 Phosphorus 5.2 mg/dL (2.3-4.7) H 03/21/17 04:05 AST 40 Units/L (5-34) H 03/22/17 03:00 Creatine Kinase 386 Units/L (30-200) H 03/16/17 05:58 Serum Total Protein 5.5 g/dL (6.0-8.3) L 03/22/17 03:00 Albumin 1.8 g/dL (3.5-5.0) L 03/22/17 03:00 Globulin 3.7 g/dL (2.4-3.5) H 03/22/17 03:00 Albumin/Globulin Ratio 0.5 (1.1-2.2) L 03/22/17 03:00 Lipase 313 Units/L (8-78) H 03/16/17 05:58 Urine Clarity Cloudy (Clear) A 03/13/17 16:00 Urine Bilirubin Small (Negative) H 03/13/17 16:00 Ur Leukocyte Esterase Small (Negative) H 03/13/17 16:00 Ur Squamous Epith Cells Many per lpf (None-Few) H 03/13/17 16:00 Ur Culture Indicated? YES (NO) A 03/13/17 16:00 Vancomycin Trough 20.6 mcg/mL (10-20) H* 03/20/17 03:40 General appearance: Present: no acute distress - Respiratory Respiratory exam: Present: decreased breath sounds, CTAB Additional comments: Rhonchi throughout - Cardiovascular Cardiovascular exam: Present: +S1, +S2, tachycardia - GI/Abdominal GI/Abdominal exam: Present: normal bowel sounds, soft - Additional comments: Small amount yellow urine in catheter - Extremities Exam Additional comments: generalized edema to all extremities - Neurological Exam Additional comments: Unresponsive to verbal/tactile stimuli. Does not follow commans - Skin Skin exam: Present: dry, pallor, warm Palliative Quality Palliative Quality: Screen for Code Status: Yes, Screen for Goals of Care: Yes, Screen for Pain: NA, If Pain Regimen Started, Initiate Bowel Regimen: NA, Screen for Nausea/Vomitting: NA Code Status: 03/16/17 10:27 CODE [Resuscitation Status: Active] [RES] Routine Comment: Resuscitation Status: Full Code 03/16/17 17:11 CODE [Resuscitation Status: Active] [RES] Routine Comment: Resuscitation Status: DNR-Comfort Care-Arrest 03/22/17 09:21 CODE [Resuscitation Status: Active] [RES] Routine Comment: 9:19 extubated Resuscitation Status: DNR-Comfort Care - Labs CBC & Chem 7: 03/21/17 04:05 03/22/17 03:00 Labs: Laboratory Results - last 24 hr 03/21/17 03/22/17 09:20 02:34 POC Glucose 74 Hep Bs Antibody 0.42 - ABG Interpretation ABG results: ABG ABG pH 7.35 pH Units (7.32-7.45) 03/21/17 08:00 ABG pCO2 55 mmHg (35-45) H 03/21/17 08:00 ABG pO2 160 mmHg (85-104) H 03/21/17 08:00 ABG O2 Saturation 99 % (95-98) H 03/21/17 08:00 PT/INR, D-dimer PT 17.5 Seconds (9.4-12.1) H 03/20/17 03:40 Consult Discharge Plan - Plan Referrals: Cuca Carlos MD [Primary Care Provider] -
[2017-03-23] MEDS: Atropine Sulfate 1% 40 DROP/2 ML BOTTLE SL PRN (08:59)
--- NOTE | 2017-03-23 13:27 | Event Note ---
Date of Encounter: 03/23/17 Time of Encounter: 13:25 I was in room speaking with family. Daughter expressed concern that if patient prior to midnight, her mom would not get his check for the month. She was asking me how to keep him alive until midnight. Discussed that we have no control over when he passes away, could be hours to a few days. During this discussion, pt did have change in respirations to agonal, and eventually was pulseless at 1317. notified and on her way back to hospital. Patient's primary nurse notified. Dr. San, and Dr. Loya also notified. Provided emotional support to family.
--- NOTE | 2017-03-23 14:07 | Death Note ---
<Guera Cedeno - Last Filed: 03/23/17 14:04> Discharge Sum: Summary - Date and Time Date of admission: 03/13/17 16:47 Date of : 03/23/17 Time of : 13:17 - Summary Details: 71 yo M admitted to ICU with septic shock 2/2 to pneumonia.Pt deteriorated clinically despite full treatment efforts. Family decided to transition to comfort care approach only. Pt was seen by palliative nurse practitioner this afternoon and noted cessation of pulse at 13:17. - Additional Data Confirmation of as documented by pronouncing clinician: no respirations, no heart sounds Family: at bedside Attending/PCP notified?: Yes Attending physician: Jose J San, DO Was code activated?: No Autopsy requested?: No billet examiner notified?: No Organ bank notified?: Yes Advance directives: Yes Hospice patient?: No Discharge Sum: Diag - PCOD Probable Cause of : Sepsis Discharge Sum: Prov - Provider Primary care physician: Cuca Carlos Admitting clinician: Sharan Navarro Consults: 03/21/17 07:01 Consult to Palliative Care [CONS] Stat Comment: Consulting Provider: Palliative Care [facility] 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 Call Completed: Yes Pronouncing clinician: Guera Cedeno <Jose J San - Last Filed: 03/23/17 19:59> Discharge Sum: Summary - Date and Time Date of admission: 03/13/17 16:47 - Additional Data Attending physician: Jose J San DO Discharge Sum: Prov - Provider Primary care physician: Cuca Carlos Consults: 03/21/17 07:01 Consult to Palliative Care [CONS] Stat Comment: Consulting Provider: Palliative Care Brunilda Reason for Consult: Failed treatment/snf vent Call Completed: Yes - Attending Attestation I examined this patient and my medical decision-making was reviewed with the Resident Physician on 03/23/17. I agree with the documented findings, disposition and treatment plan as described except to the extent set forth below. Mr. Child peacefully today.
== END 2017-03-23 14:40 | disposition expired | DRG 870 ==
LOC: SUATTDRO 16:47 → ICNU 16:47 → 2ANU 03-22 16:18
PROVIDERS: ADMIT Internal Medicine Hospice and Palliative Medicine; ATTEND Internal Medicine